=== PATIENT | female | born 1945 | race Caucasian/White ===

== ENCOUNTER 2017-07-02 17:02 | Inpatient (IN) | payer MEDICARE ==
[2017-07-02] MEDS ORDERED: Sodium Chloride 0.9% 10 ML Syringe FLUSH PRN (17:44)
[2017-07-02] MEDS ORDERED: Insulin Aspart 100 Units/ML 3 ML Pen SUBCUT ONE (18:38)
--- NOTE | 2017-07-02 18:38 | EDM.PDOC ---
ED HPI GENERAL MEDICAL PROBLEM - General Chief Complaint: Diabetic Complaint Stated Complaint: high blood sugar Time Seen by Provider: 07/02/17 17:12 Source of Information: Reports: Patient, Family - History of Present Illness INITIAL COMMENTS - FREE TEXT/NARRATIVE: patient comes into the emergency department with her family tonight stating she feels shaky, weak, and has blood sugars in the 300-400s. Pt just recently had her lantus switched to Basaglar. But also stopped her victoza. She has not been eating the greatest according to family. She was eating dairy barbosa yesterday and had a large mocca today. She started feeling tired and shaky approx 2 days now. Family noticed her blood sugars have been reading high and the patient has been drinking alot of water. She denies any fever, n/v, headache, weakness, chest pain. She has also noticed even drinking all the water the past few days she has begun to retain fluid and not use the bathroom as frequently. Onset: Gradual Associated Symptoms: Reports: Malaise, Weakness Right Shoulder Pain Score (Numeric/FACES): 3 - Related Data Allergies Allergy/AdvReac Type Severity Reaction Status Date / Time Sulfa (Sulfonamide Allergy Unknown Anaphylactic Verified 07/02/17 18:23 Antibiotics) Shock metformin AdvReac Intermediate Vomiting Verified 07/04/17 11:15 Home Meds: Home Meds Albuterol [Proair HFA] 2 puff INH Q4HR PRN 11/06/14 [History] Aspirin 325 mg PO DAILY@119911/06/14 [History] Escitalopram Oxalate [Lexapro] 30 mg PO DAILY@89911/06/14 [History] Fexofenadine [Alem] 180 mg PO DAILY@89911/06/14 [History] Fluticasone Propionate [Flonase] 50 mcg JOSÉ MIGUEL DAILY@89911/06/14 [History] Lutein/Minerals/Vit A,C & E [I-Twyla] 1 tab PO DAILY@119911/06/14 [History] Multivitamins w-Iron/Ca/FA/Min [Thera M Plus] 1 tab PO DAILY@119911/06/14 [ History] [place]-3 Fatty Acids [[place]-3] 1,000 mg PO BEDTIME 11/06/14 [History] Oxybutynin Chloride [Ditropan Xl] 10 mg PO DAILY@1200 11/06/14 [History] Simvastatin 20 mg PO DAILY@191411/06/14 [History] Acetaminophen [Tylenol Extra Strength] 500 - 1,000 mg PO Q8HR PRN MDD 4000 MG [History] Calcium Carbonate/Vitamin D3 [Liquid Calcium 600-Vit D3 Sfgl] 1 tab PO BID@1200, 191407/02/17 [History] Capsaicin [Zostrix 0.025% Crm] 1 applic TOP Q6HR PRN 07/02/17 [History] Carboxymethylcellulose Sodium [Refresh Liquigel 1%] 1 drop EYEBOTH DAILY@1914 [History] Clotrimazole/Betamethasone Dip [Lotrisone Cream] 1 applic TP BID PRN 07/02/17 [ History] Levothyroxine 25 mcg PO ACBREAKFAST 07/02/17 [History] Methylphenidate HCl [Ritalin] 20 mg PO BID@0900,1500 07/02/17 [History] Pantoprazole [ProTONIX] 40 mg PO DAILY@0830 07/02/17 [History] Propylene Glycol/Peg 400 [Systane Liquid Gel Eye Drops] 1 drop EYEBOTH QID 07/02 [History] Telmisartan [Micardis] 80 mg PO DAILY@89907/02/17 [History] guaiFENesin [Robitussin] 20 ml PO Q4HR PRN 07/02/17 [History] buPROPion [buPROPion XL] 150 mg PO DAILY@89907/03/17 [History] Insulin Glargine,Hum.Rec.Anlog [Basaglar Kwikpen U-100] 50 unit SQ DAILY@1914 [History] Budesonide [Pulmicort Flexhaler] 2 puff IH BID #1 inhaler 07/05/17 [Rx] Gabapentin [Neurontin] 1 cap PO BID 30 Days #60 capsule 07/05/17 [Rx] Insulin Aspart [Novolog] See Protocol SQ TIDMEALS #1 pen 07/05/17 [Rx] Past Medical History Cardiovascular History: Reports: Hypertension Gastrointestinal History: Reports: GERD Other Genitourinary History: Diabetic nephropathy. Overactive bladder Other Musculoskeletal History: Psoriatic arthritis. Clavicle FX Psychiatric History: Reports: Depression Endocrine/Metabolic History: Reports: Diabetes, Type II Other Hematologic History: Thrombocytopenia - Past Surgical History Other Female Surgeries/Procedures: Cystocele. prolapsed uterus Other Musculoskeletal Surgeries/Procedures:: Diabetic neuropathy. Toe ORIF Social & Family History - Tobacco Use Smoking Status *Q: Never Smoker - Recreational Drug Use Recreational Drug Use: No ED ROS GENERAL - Review of Systems Review Of Systems: See Below Constitutional: Reports: Weakness, Fatigue, Weight Gain Respiratory: Reports: No Symptoms Cardiovascular: Reports: Dyspnea on Exertion Endocrine: Reports: No Symptoms GI/Abdominal: Reports: No Symptoms : Reports: No Symptoms Musculoskeletal: Reports: No Symptoms Skin: Reports: No Symptoms Neurological: Reports: No Symptoms Psychiatric: Reports: No Symptoms Hematologic/Lymphatic: Reports: No Symptoms Immunologic: Reports: No Symptoms ED EXAM, GENERAL - Physical Exam Exam: See Below Exam Limited By: No Limitations General Appearance: Alert, WD/WN, No Apparent Distress Eye Exam: Bilateral Eye: PERRL Respiratory/Chest: No Respiratory Distress, Lungs Clear, Normal Breath Sounds, No Accessory Muscle Use, Respiratory Distress, Crackles Cardiovascular: Normal Peripheral Pulses, Regular Rate, Rhythm, No Edema, No Gallop, No JVD, No Murmur, No Rub Extremities: Normal Inspection, Normal Range of Motion, Non-Tender, No Pedal Edema, Normal Capillary Refill Neurological: Alert, Oriented, CN II-XII Intact, Normal Cognition, Normal Gait, Normal Reflexes, No Motor/Sensory Deficits Psychiatric: Normal Affect, Normal Mood Skin Exam: Warm, Dry, Intact, Normal Color, No Rash Lymphatic: No Adenopathy EKG INTERPRETATION Rhythm: NSR Course - Vital Signs Last Recorded V/S: Last Vital Signs Temp 36.0 C 07/05/17 10:00 Pulse 69 07/05/17 10:00 Resp 20 07/05/17 10:00 BP 93/76 07/05/17 10:00 Pulse Ox 94 L 07/05/17 10:00 - Orders/Labs/Meds Labs: Laboratory Tests 07/02/17 07/02/17 07/02/17 Range/Units 17:16 17:59 17:59 WBC 3.9 L (4.0-10.0) x10^3/uL RBC 4.53 (4.00-5.50) x10^6/uL Hgb 13.4 (12.0-16.0) g/dL Hct 40.5 (33.0-47.0) % MCV 89.4 (78.0-93.0) fL MCH 29.6 (26.0-32.0) pg MCHC 33.1 (32.0-36.0) g/dL RDW Coeff of Ananda 14.3 (10.0-15.0) % Plt Count 64 L (130-400) x10^3/uL Neut % (Auto) 66.6 (50.0-80.0) % Lymph % (Auto) 17.8 L (25.0-50.0) % Kimball % (Auto) 15.0 H (2.0-11.0) % Eos % (Auto) 0.3 (0.0-4.0) % Baso % (Auto) 0.3 (0.2-1.2) % POC ABG pH (7.35-7.45) POC ABG pCO2 (35-45) mmHG POC ABG pO2 (80-105) mmHG POC ABG HCO3 (22-26) mmol/L POC ABG Total CO2 (23-27) mmol/L POC ABG O2 Sat (95-98) % POC ABG Base Excess (-2-3) mmol/L POC FiO2 Sodium 138 (136-145) mmol/L Potassium 3.7 (3.5-5.1) mmol/L Chloride 100 (98-107) mmol/L Carbon Dioxide 28 (21-32) mmol/L BUN 11 (7-18) mg/dL Creatinine 1.2 H (0.55-1.02) mg/dL Est Cr Clr Drug Dosing TNP Estimated GFR (MDRD) 44 Glucose 394 H (74-106) mg/dL POC Glucose 366 H (74-106) mg/dL Lactic Acid (0.4-2.0) mmol/L Calcium 9.1 (8.5-10.1) mg/dL Corrected Calcium 9.74 (8.5-10.1) mg/dL Total Bilirubin 0.5 (0.2-1.0) mg/dL AST 18 (15-37) U/L ALT 20 (14-59) U/L Alkaline Phosphatase 71 (46-116) U/L NT-Pro-B Natriuret Pep 523 H (<=125) pg/mL Total Protein 6.7 (6.4-8.2) g/dL Albumin 3.2 L (3.4-5.0) g/dL Globulin 3.5 Albumin/Globulin Ratio 0.91 07/02/17 07/02/17 Range/Units 17:59 18:15 WBC (4.0-10.0) x10^3/uL RBC (4.00-5.50) x10^6/uL Hgb (12.0-16.0) g/dL Hct (33.0-47.0) % MCV (78.0-93.0) fL MCH (26.0-32.0) pg MCHC (32.0-36.0) g/dL RDW Coeff of Ananda (10.0-15.0) % Plt Count (130-400) x10^3/uL Neut % (Auto) (50.0-80.0) % Lymph % (Auto) (25.0-50.0) % Kimball % (Auto) (2.0-11.0) % Eos % (Auto) (0.0-4.0) % Baso % (Auto) (0.2-1.2) % POC ABG pH 7.438 (7.35-7.45) POC ABG pCO2 33 L (35-45) mmHG POC ABG pO2 62 L (80-105) mmHG POC ABG HCO3 22 (22-26) mmol/L POC ABG Total CO2 23 (23-27) mmol/L POC ABG O2 Sat 92 L (95-98) % POC ABG Base Excess -2 (-2-3) mmol/L POC FiO2 0.21 Sodium (136-145) mmol/L Potassium (3.5-5.1) mmol/L Chloride (98-107) mmol/L Carbon Dioxide (21-32) mmol/L BUN (7-18) mg/dL Creatinine (0.55-1.02) mg/dL Est Cr Clr Drug Dosing Estimated GFR (MDRD) Glucose (74-106) mg/dL POC Glucose (74-106) mg/dL Lactic Acid 1.2 (0.4-2.0) mmol/L Calcium (8.5-10.1) mg/dL Corrected Calcium (8.5-10.1) mg/dL Total Bilirubin (0.2-1.0) mg/dL AST (15-37) U/L ALT (14-59) U/L Alkaline Phosphatase (46-116) U/L NT-Pro-B Natriuret Pep (<=125) pg/mL Total Protein (6.4-8.2) g/dL Albumin (3.4-5.0) g/dL Globulin Albumin/Globulin Ratio Meds: Medications Discontinued Medications Generic Name Dose Route Start Last Admin Trade Name Freq PRN Reason Stop Dose Admin Acetaminophen 500 mg 07/02/17 23:57 Tylenol Extra Strength PO Q8HR PRN Pain Albuterol 2.5 mg 07/04/17 10:49 07/05/17 07:07 Proventil Neb Soln NEB 2.5 mg Q4HRRT PRN Administration sob Artificial Tears 0 each 07/03/17 20:00 07/04/17 19:53 Tears Naturale Free EYEBOTH 1 each BEDTIME SUNNY Administration Aspirin 325 mg 07/03/17 08:00 07/03/17 07:45 Ecotrin PO 325 mg DAILY SUNNY Administration Aspirin 325 mg 07/04/17 12:00 07/05/17 12:16 Ecotrin PO 325 mg DAILY@12 SUNNY Administration Benzocaine/Menthol 1 lozenge 07/02/17 23:20 07/05/17 12:16 Cepacol Sore Throat MUCMEM 1 lozenge TID PRN Administration Cough Budesonide 0.5 mg 07/04/17 12:15 07/05/17 07:07 Pulmicort NEB 0.5 mg BIDRT SUNNY Administration Bupropion HCl 150 mg 07/03/17 08:00 07/03/17 07:45 Wellbutrin PO 150 mg DAILY SUN[facility] Administration Bupropion HCl 150 mg 07/04/17 08:00 07/05/17 07:34 Wellbutrin Xl PO 150 mg DAILY SUNNY Administration Capsaicin 0 gm 07/02/17 23:57 Zostrix 0.025% Crm TOP Q6HR PRN Pain Citalopram Hydrobromide 40 mg 07/03/17 08:00 07/05/17 07:34 Celexa PO 40 mg DAILY SUNNY Administration Diphenhydramine HCl 50 mg 07/03/17 20:15 07/03/17 20:48 Benadryl IVPUSH 07/03/17 20:16 50 mg ONETIME ONE Administration Fluticasone Propionate 0.0001 gm 07/03/17 08:00 07/04/17 08:04 Flonase NASBOTH 1 spray DAILY SUNNY Administration Fluticasone Propionate 0 gm 07/05/17 08:00 07/05/17 07:36 Flonase NASBOTH 1 spray DAILY USNNY Administration Gabapentin 100 mg 07/04/17 12:30 07/05/17 07:34 Neurontin PO 100 mg BID SUNNY Administration Guaifenesin 400 mg 07/02/17 23:57 07/03/17 20:48 Robitussin PO 400 mg Q4HR PRN Administration Other Sodium Chloride 1,000 mls @ 50 mls/hr 07/02/17 21:30 07/02/17 22:08 Normal Saline IV 50 mls/hr ASDIRECTED SUNNY Administration Insulin Aspart 5 unit 07/03/17 08:00 Novolog SUBCUT TIDMEALS [facility] Insulin Aspart 5 unit 07/02/17 18:38 07/02/17 19:06 Novolog SUBCUT 07/02/17 18:39 5 units ONETIME ONE Administration Insulin Aspart 0 unit 07/04/17 11:10 07/04/17 11:22 Novolog SUBCUT 2 units TIDAC [facility] Administration Protocol Insulin Aspart 0 unit 07/04/17 18:00 07/05/17 12:16 Novolog SUBCUT 3 units TIDMEALS [facility] Administration Protocol Insulin Detemir 0 unit 07/03/17 20:00 07/04/17 19:52 Levemir SUBCUT 50 units BEDTIME [facility] Administration Insulin Human Regular 0 unit 07/03/17 07:00 07/03/17 11:12 Humulin R SUBCUT Not Given [facility] Protocol Insulin Human Regular 0 unit 07/03/17 17:00 07/04/17 12:31 Humulin R SUBCUT Not Given [facility] Protocol Levothyroxine Sodium 25 mcg 07/03/17 07:00 07/05/17 06:17 Levothyroxine PO 25 mcg ACBREAKFAST [facility] Administration Loratadine 10 mg 07/03/17 08:00 07/05/17 07:34 Claritin PO 10 mg DAILY [facility] Administration Losartan Potassium 100 mg 07/03/17 08:00 07/05/17 07:34 Cozaar PO 100 mg DAILY [facility] Administration Non-Formulary Medication 20 mg 07/03/17 08:00 07/03/17 10:35 Methylphenidate Hcl [Ritalin] PO Not Given BID [facility] Non-Formulary Medication 1 drop 07/03/17 08:00 07/03/17 08:16 Propylene Glycol/Peg 400 [Systane Liquid Gel Eye Drops] EYEBOTH Not Given QID [facility] Refresh Liquigel 0 drop 07/03/17 10:15 07/05/17 12:16 Own Med EYEBOTH 1 drop QID [facility] Administration Methylphenidate 20 0 mg 07/03/17 15:00 07/05/17 07:35 Mg Own Med PO 07/12/17 15:01 20 mg BID@0800,1500 [facility] Administration Ondansetron HCl 4 mg 07/02/17 21:17 Zofran Odt PO Q6H PRN nausea, able to take PO Oxybutynin Chloride 10 mg 07/03/17 08:00 07/03/17 07:44 Oxybutynin Er PO 10 mg DAILY [facility] Administration Oxybutynin Chloride 10 mg 07/04/17 12:00 07/05/17 12:16 Oxybutynin Er PO 10 mg DAILY@12 [facility] Administration Oxycodone/Acetaminophen 2 tab 07/02/17 23:57 07/05/17 07:34 Percocet 325-5 Mg PO 2 tab Q4H PRN Administration Pain Pantoprazole Sodium 40 mg 07/03/17 08:00 07/05/17 07:34 Protonix PO 40 mg DAILY [facility] Administration Potassium Chloride 40 meq 07/04/17 10:24 07/04/17 11:18 Klor-Con M20 PO 07/04/17 10:25 40 meq ONETIME ONE Administration Simvastatin 20 mg 07/03/17 20:00 07/04/17 19:53 Zocor PO 20 mg BEDTIME [facility] Administration Sitagliptin Phosphate 100 mg 07/03/17 08:00 07/03/17 07:45 Januvia PO 100 mg DAILY [facility] Administration Sitagliptin Phosphate 100 mg 07/04/17 12:00 07/04/17 12:32 Januvia PO Not Given DAILY@12 [facility] Sodium Chloride 10 ml 07/02/17 17:44 Saline Flush FLUSH ASDIRECTED PRN Keep Vein Open Departure - Departure Time of Disposition: 12:30 Disposition: Admitted As Inpatient 64 Clinical Impression: Hyperglycemia - Discharge Information
[2017-07-02 18:43] LABS: CHLORIDE,CL 100 mmol/L (98-107); SODIUM,NA 138 mmol/L (136-145)
[2017-07-02] MEDS ORDERED: Ondansetron 4 MG Tab.DIS PO PRN (21:17)
[2017-07-02] MEDS ORDERED: Sodium Chloride 0.9% 1,000 ML IV SCH (21:30)
--- NOTE | 2017-07-02 23:05 | PCM.HP ---
H&P History of Present Illness - General Date of Service: 07/02/17 Admit Problem/Dx: Admission Diagnosis/Problem Admission Diagnosis/Problem Hyperglycemia Uncontrolled Diabetes Type II Weakness Fatigue Source of Information: Patient, Family, Old Records, RN, RN Notes Reviewed History Limitations: Reports: No Limitations - History of Present Illness Initial Comments - Free Text/Narative: 71 yo female patient was brought to the Emergency Room at [facility] earlier this evening for elevated blood sugar, weakness, and fatigue. The patient states her symptoms started a couple of days ago. Patient did fall at home last evening. She states she landed on her right shoulder which seem to bother her somewhat today. She has full ROM and does not seem to have any deficits. She recently underwent left rotator cuff repair 04/07/2017. She has not complaints with the left shoulder. The patient admits she has not been taking her diabetic medications as prescribed. She states she has been urinating "a lot more than usual." She states she feels very fatigue and weak. She denies any nausea, vomiting or diarrhea. No headaches. She did have shaking spells at home over the past day or so. She states it has been more difficult to walk with her cane. She admits she does not follow an ADA diet. She states she ate [employer] [place] yesterday and had a regular Mocca today. Patient denies any new visual problems. She feels thirsty most of the say. She has a history of diabetic neuropathy and nephropathy. Patient denies any chest pain or SOB. No abdominal pain. No UTI symptoms. Patient is IGIUGIG. Patient states she is not sure why she does not follow her PCP's direction with diabetes control. She has kept her blood pressure and cholesterol levels under control with medications. It is felt the patient has some mild CHF on admission. Patient's BNP is 523; todays CXR did not show any cardiomegaly; some crackles in the right base without any peripheral edema. The patient's last Echo was 04/2016 with an EF at that time was 60-65%. The Echo did show some mild AI, otherwise ventricles were normal. Patient has a history of JANET in the past. Her Creat has progressively been elevated over the past year. A year ago her Creat was 1.00, at 6 months slightly elevated at 1.01, and 3 months ago 1.17. Today her Creat is up to 1.2. Patient's last HgbA1C March 2017 was 8.4, up from 6.10 Sep 2016. Onset of Symptoms: Reports: Gradual Symptom Onset Date: 06/29/17 Duration of Symptoms: Reports: Waxing/Waning Right Shoulder Pain Score (Numeric/FACES): 2 - Related Data Allergies/Adverse Reactions: Allergies Allergy/AdvReac Type Severity Reaction Status Date / Time Sulfa (Sulfonamide Allergy Unknown Anaphylactic Verified 07/02/17 18:23 Antibiotics) Shock Home Medications: Home Meds Albuterol [Proair HFA] 2 puff INH Q4HR PRN 11/06/14 [History] Aspirin 325 mg PO DAILY 11/06/14 [History] Budesonide [Pulmicort Flexhaler] 2 puff INH BID PRN 11/06/14 [History] Escitalopram Oxalate [Lexapro] 1.5 tab PO DAILY 11/06/14 [History] Fexofenadine [Alem] 180 mg PO DAILY 11/06/14 [History] Fluticasone Propionate [Flonase] 50 mcg INH DAILY 11/06/14 [History] Insulin Glarg,Human.Rec.Analog [LantUS Solostar] 50 units SQ BEDTIME 11/06/14 [ History] Lutein/Minerals/Vit A,C & E [I-Twyla] 1 each PO DAILY 11/06/14 [History] Multivitamins w-Iron/Ca/FA/Min [Thera M Plus] 1 tab PO DAILY 11/06/14 [History] [place]-3 Fatty Acids [[place]-3] 1,000 mg PO DAILY 11/06/14 [History] Oxybutynin Chloride [Ditropan Xl] 10 mg PO DAILY 11/06/14 [History] Simvastatin [Simvastatin] 1 tab PO BEDTIME 11/06/14 [History] SitaGLIPtin [Januvia] 1 tab PO DAILY 11/06/14 [History] Acetaminophen [Tylenol Extra Strength] 1 tab PO Q8HR PRN 07/02/17 [History] Calcium Carbonate/Vitamin D3 [Liquid Calcium 600-Vit D3 Sfgl] 1 tab PO BID 07/02 [History] Capsaicin [Zostrix 0.025% Crm] 1 applic TOP Q6HR PRN 07/02/17 [History] Carboxymethylcellulose Sodium [Refresh Liquigel 1% Ophth Soln] 1 drop EYEBOTH DAILY 07/02/17 [History] Clotrimazole/Betamethasone Dip [Lotrisone Cream] 1 applic TP BID PRN 07/02/17 [ History] Ibuprofen [Ibuprofen Ib] 4 tab PO Q12HR PRN 07/02/17 [History] Levothyroxine 25 mcg PO ACBREAKFAST 07/02/17 [History] Methylphenidate HCl [Ritalin] 20 mg PO BID 07/02/17 [History] Pantoprazole [ProTONIX] 40 mg PO DAILY 07/02/17 [History] Propylene Glycol/Peg 400 [Systane Liquid Gel Eye Drops] 1 drop EYEBOTH ASDIRECTED 07/02/17 [History] Telmisartan [Micardis] 80 mg PO DAILY 07/02/17 [History] buPROPion [Wellbutrin] 150 mg PO DAILY 07/02/17 [History] guaiFENesin [Robitussin] 20 ml PO Q4HR PRN 07/02/17 [History] oxyCODONE HCl/Acetaminophen [oxyCODONE-Acetaminophen 5-325] 2 tab PO Q4H PRN [History] Past Medical History HEENT History: Reports: Hard of Hearing Cardiovascular History: Reports: Hypertension Respiratory History: Reports: Asthma, Sleep Apnea Gastrointestinal History: Reports: GERD Other Genitourinary History: Diabetic nephropathy. Overactive bladder Other Musculoskeletal History: Psoriatic arthritis. Clavicle FX Psychiatric History: Reports: Depression Endocrine/Metabolic History: Reports: Diabetes, Type II Other Hematologic History: Thrombocytopenia - Past Surgical History Other Female Surgeries/Procedures: Cystocele. prolapsed uterus Other Musculoskeletal Surgeries/Procedures:: Diabetic neuropathy. Toe ORIF Social & Family History - Family History Family Medical History: Noncontributory - Tobacco Use Smoking Status *Q: Never Smoker Second Hand Smoke Exposure: No - Caffeine Use Caffeine Use: Reports: Coffee, Soda - Recreational Drug Use Recreational Drug Use: No - Living Situation & Occupation Living situation: Reports: , with Spouse, Assisted Living Occupation: Retired H&P Review of Systems - Review of Systems: Review Of Systems: See Below General: Reports: Weakness, Fatigue, Diaphoresis. Denies: Fever, Chills, Decreased Appetite Pulmonary: Denies: Shortness of Breath, Cough Cardiovascular: Reports: Lightheadedness. Denies: Chest Pain, Palpitations, Edema Gastrointestinal: Denies: Abdominal Pain, Nausea, Vomiting Genitourinary: Reports: Frequency Musculoskeletal: Reports: Shoulder Pain (Right) Skin: Reports: Diaphoresis Neurological: Denies: No Symptoms, Dizziness, Headache, Numbness, Paresthesia, Tingling Exam - Exam Exam: See Below - Vital Signs Vital Signs: Last Vital Signs Temp 37.1 C 07/02/17 22:00 Pulse 70 07/02/17 22:00 Resp 16 07/02/17 22:00 BP 121/73 07/02/17 22:00 Pulse Ox 95 07/02/17 22:00 Weight: 88.224 kg - Exam General: Alert, Oriented, Cooperative Lungs: Normal Respiratory Effort, Crackles (scant right lung base; otherwise lungs are clear) Cardiovascular: Regular Rate, Regular Rhythm, Normal S1, Normal S2 GI/Abdominal Exam: Normal Bowel Sounds, Soft, Non-Tender Extremities: No Pedal Edema, Normal Capillary Refill, Other (slight pain with right shoulder ROM; no joint laxity, no obvious bone deformity; able to use normal with minimal pain) Peripheral Pulses: 2+: Radial (L), Radial (R) Skin: Warm, Dry, Intact Neuro Extensive - Mental Status: Alert, Oriented x3 - Patient Data Lab Results Last 24 hrs: Laboratory Results - last 24 hr 07/02/17 Range/Units 19:39 POC Glucose 281 H (74-106) mg/dL Result Diagrams: 07/02/17 17:59 07/02/17 17:59 *Q Meaningful Use (ADM) - VTE *Q VTE Criteria *Q: VTE Mechanical Contraindications *Q: At Risk for Falls - Stroke *Q Stroke Criteria *Q: - AMI *Q AMI Criteria *Q: - Problem List (1) Hyperglycemia due to type 2 diabetes mellitus SNOMED Code(s): 906480287434286 ICD Code: E11.65 - TYPE 2 DIABETES MELLITUS WITH HYPERGLYCEMIA Status: Acute Priority: Medium Current Visit: Yes Qualifiers: 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: with custodial use Qualified Code( s): E11.65 - Type 2 diabetes mellitus with hyperglycemia; Z79.4 - terminal operator ( current) use of insulin; Z79.4 - terminal operator (current) use of insulin; Z79.4 - terminal operator (current) use of insulin; Z79.4 - FDC (current) use of insulin (2) Fatigue SNOMED Code(s): 09973515 ICD Code: R53.83 - OTHER FATIGUE Status: Acute Priority: Medium Current Visit: Yes Qualifiers: Fatigue type: unspecified Qualified Code(s): R53.83 - Other fatigue (3) Weakness SNOMED Code(s): 98971698 ICD Code: R53.1 - WEAKNESS Status: Acute Current Visit: Yes (4) Vascular dementia SNOMED Code(s): 966018798 ICD Code: F01.50 - VASCULAR DEMENTIA WITHOUT BEHAVIORAL DISTURBANCE Status : Chronic Current Visit: No Qualifiers: Dementia behavioral disturbance: without behavioral disturbance Qualified Code(s): F01.50 - Vascular dementia without behavioral disturbance (5) Essential hypertension SNOMED Code(s): 00812598 ICD Code: I10 - ESSENTIAL (PRIMARY) HYPERTENSION Status: Chronic Current Visit: No (6) Hyperlipidemia associated with type 2 diabetes mellitus SNOMED Code(s): 044321442128 ICD Code: E11.69 - TYPE 2 DIABETES MELLITUS WITH OTHER SPECIFIED COMPLICATION ; E78.5 - HYPERLIPIDEMIA, UNSPECIFIED Status: Chronic Current Visit: No (7) Hypothyroidism (acquired) SNOMED Code(s): 541126480 ICD Code: E03.9 - HYPOTHYROIDISM, UNSPECIFIED Status: Chronic Current Visit: No (8) GERD (gastroesophageal reflux disease) SNOMED Code(s): 486406574 ICD Code: K21.9 - GASTRO-ESOPHAGEAL REFLUX DISEASE WITHOUT ESOPHAGITIS Status: Chronic Current Visit: No Qualifiers: Esophagitis presence: without esophagitis Qualified Code(s): K21.9 - Gastro -esophageal reflux disease without esophagitis (9) Depression SNOMED Code(s): 66436892 ICD Code: F32.9 - MAJOR DEPRESSIVE DISORDER, SINGLE EPISODE, UNSPECIFIED Status: Acute Current Visit: Yes Qualifiers: Depression Type: major depressive disorder Major depression recurrence: recurrent Active/Remission status: currently active Major depression episode severity: moderate Qualified Code(s): F33.1 - Major depressive disorder, recurrent, moderate Problem List Initiated/Reviewed/Updated: Yes Orders Last 24hrs: Active Orders 24 hr Category Date Time Status Patient Status [ADT] Routine ADT 07/02/17 21:10 Active Accu Check [Blood Glucose Check, Bedside] [RC] Care 07/02/17 21:26 Active QIDACANDBED EKG 12 Lead [EKG Documentation Completion] [RC] ROUTINE Care 07/02/17 19:34 Active Height and Weight [RC] UPON Care 07/02/17 21:17 Active Intake and Output [RC] QSHIFT Care 07/02/17 21:21 Active May Shower [RC] ASDIRECTED Care 07/02/17 21:17 Active Oxygen Therapy [RC] PRN Care 07/02/17 21:10 Active Up ad Rosmery [RC] ASDIRECTED Care 07/02/17 21:17 Active VTE/DVT Education [RC] PER UNIT ROUTINE Care 07/02/17 21:10 Active Vital Signs [RC] Q4H Care 07/02/17 21:10 Active Consult to Case Management [CONS] Routine Cons 07/02/17 21:17 Active OT Evaluation and Treatment [CONS] Routine Cons 07/02/17 21:17 Active PT Evaluation and Treatment [CONS] Routine Cons 07/02/17 21:17 Active [employer] Diet [DIET] Diet 07/02/17 Breakfast Active Chest 1V Frontal [CR] Stat Exams 07/02/17 19:35 Taken BASIC METABOLIC PANEL,BMP [CHEM] Routine Lab 07/03/17 05:11 Ordered CBC WITH AUTO DIFF [HEME] Routine Lab 07/03/17 05:11 Ordered GLYCOSYLATED HEMOGLOBIN,HGBA1C [CHEM] Routine Lab 07/03/17 05:11 Ordered MAGNESIUM [CHEM] Routine Lab 07/03/17 05:11 Ordered MICROALBUMIN, URINE RANDOM Routine Lab 07/03/17 05:11 Ordered PRO B-TYPE NATRIUR PEPT,BNPPRO [CHEM] Routine Lab 07/03/17 05:11 Ordered TSH ULTRASENSITIVE [CHEM] Routine Lab 07/03/17 05:11 Ordered UA W/MICROSCOPIC [URIN] Routine Lab 07/03/17 05:11 Ordered Insulin Regular, Human [HumuLIN R] Med 07/03/17 07:00 Active See Protocol SUBCUT TIDAC Ondansetron [Zofran ODT] Med 07/02/17 21:17 Active 4 mg PO Q6H PRN Sodium Chloride 0.9% [Normal Saline] 1,000 ml Med 07/02/17 21:30 Active IV ASDIRECTED Resuscitation Status Routine Resus Stat 07/02/17 21:10 Ordered Medication Orders Sodium Chloride (Normal Saline) 1,000 mls @ 50 mls/hr IV ASDIRECTED [facility] Last Admin: 07/02/17 22:08 Dose: 50 mls/hr Insulin Human Regular (Humulin R) 0 unit SUBCUT TIDAC SUNNY PRN Reason: Protocol Ondansetron HCl (Zofran Odt) 4 mg PO Q6H PRN PRN Reason: nausea, able to take PO Sodium Chloride (Saline Flush) 10 ml FLUSH ASDIRECTED PRN PRN Reason: Keep Vein Open Assessment/Plan Comment:: 71 yo female patient with a past medical history of Diabetes Type II, vascular dementia, hypertension, hyperlipidemia, GERD, and depression, is admitted to the acute care floor at [facility] for hyperglycemia in the setting of diabetes type II, weakness, and fatigue 1. Uncontrolled DM with hyperglycemia - start SSI; continue home DM meds; needs DM education referral; recheck A1C, ADA diet; gentle IVF hydration; no ketoacidosis as this time; will monitor for this 2. Weakness - secondary to hyperglycemia and poor diet control; does use a cane at home; with consult PT/OT; could also be from her depression and social isolation 3. Fatigue - recently dx with hypothyroidism; recheck TSH; control blood sugars ; ADA diet I do not feel the patient has any overt issues with CHF at this time. BNP is slightly elevated but CXR and EF are normal without any peripheral edema. Will recheck BNP in am, if elevated may give a one time dose of Lasix, however the patient is urinating fine. I believe this will correct once blood sugars are under better control and patient cuts back on fluid intake. Patient needs to adhere to a ADA diet faithfully if at all possible; needs DM education. Will await PT/OT evals. Once blood sugars are under better control, will change to a low-dose SSI. The patients wishes to be a full code at this time. Patient does wish to be transferred to a higher level of care should the need arise. I do anticipate the patient will be admitted for >48 hours due to symptomatic hyperglycemia. Recommend continuing with psychotherapy as outpatient. May consider stopping Wellbutrin and trying Zoloft if the patient has not done this in the past. Continue all other home medications the same.
[2017-07-02] MEDS: Benzocaine/Cetylpyridinium/Menthol Lozenge MUCMEM PRN (23:55)
[2017-07-02] MEDS ORDERED: Capsaicin 0.025% Crm 60 GM Tube TOP PRN (23:57)
[2017-07-02] MEDS ORDERED: Acetaminophen/oxyCODONE 325-5 MG Tab PO PRN (23:57)
[2017-07-02] MEDS ORDERED: guaiFENesin 100 MG/5 ML Soln 10 ML UD Cup PO PRN (23:57)
[2017-07-02] MEDS ORDERED: Albuterol 8 GM Inhaler INH PRN (23:57)
[2017-07-02] MEDS ORDERED: Acetaminophen 500 MG Tab PO PRN (23:57)
[2017-07-03] MEDS ORDERED: Mometasone Furoate Powder 220 MCG/Puff 14 Dose Inhaler INH PRN (00:30)
[2017-07-03] MEDS: Levothyroxine 25 MCG Tab PO SCH (06:40)
[2017-07-03] MEDS: Insulin Regular, Human 100 Units/ML 3 ML Vial SUBCUT SCH ×3 (06:50→17:29)
[2017-07-03] MEDS: Fluticasone Propionate Nasal Spray 16 GM Bottle NASBOTH SCH (07:44)
[2017-07-03] MEDS: Pantoprazole 40 MG Tab.CR PO SCH (07:45)
[2017-07-03] MEDS: Loratadine 10 MG Tab PO SCH (07:45)
[2017-07-03] MEDS: Losartan 50 MG Tab PO SCH (07:45)
[2017-07-03] MEDS: Citalopram 20 MG Tab PO SCH (07:45)
[2017-07-03] MEDS ORDERED: Aspirin 325 MG Tab.EC PO SCH (08:00)
[2017-07-03] MEDS ORDERED: Insulin Aspart 100 Units/ML 3 ML Pen SUBCUT SCH (08:00)
[2017-07-03] MEDS ORDERED: METHYLPHENIDATE HCL 20 MG PO SCH (08:00)
[2017-07-03] MEDS ORDERED: Oxybutynin 5 MG Tab.ER PO SCH (08:00)
[2017-07-03] MEDS ORDERED: Non-Formulary Medication 1 Each (Propylene Glycol/Peg 400 [Systane Liquid Gel Eye Drops] 1 EYEBOTH SCH (08:00)
[2017-07-03] MEDS: METHYLPHENIDATE 20 MG PO SCH ×2 (10:31→16:28)
[2017-07-03] MEDS: REFRESH LIQUIGEL EYEBOTH SCH ×3 (11:43→20:10)
[2017-07-03] MEDS ORDERED: Sodium Chloride 0.9% 10 ML Syringe FLUSH PRN (12:42)
--- NOTE | 2017-07-03 12:49 | PCM.PN ---
- General Info Date of Service: 07/03/17 Admission Dx/Problem (Free Text): Admission Diagnosis/Problem Admission Diagnosis/Problem Hyperglycemia Uncontrolled Diabetes Type II Weakness Fatigue Subjective Update: Patient complains of a burning sensation of her lower lip. She states this has been presents for the past couple of months. She is doing warm salt water gargles which see to help. Otherwise, no other specific complaints. She states she is urinating ok and no issues with BM's. Tolerating diet ok. Patient did have one episode of dizziness upon standing. Orthostatic pressures were good. Her blood sugar was 56. No chest pain or SOB. No abdominal pain. Functional Status: Reports: Pain Controlled, Tolerating Diet, Ambulating, Urinating Pain Score: 0 - Review of Systems General: Reports: Weakness, Fatigue. Denies: Fever, Chills HEENT: Reports: Other (See HPI) Pulmonary: Denies: Shortness of Breath, Cough Cardiovascular: Reports: Lightheadedness. Denies: Chest Pain, Palpitations Gastrointestinal: Denies: Abdominal Pain, Nausea, Vomiting Skin: Reports: No Symptoms Neurological: Reports: Dizziness. Denies: Headache, Numbness, Paresthesia, Tingling - Patient Data Vitals - Most Recent: Last Vital Signs Temp 37.2 C 07/03/17 10:00 Pulse 69 07/03/17 06:00 Resp 18 07/03/17 06:00 BP 105/77 07/03/17 06:00 Pulse Ox 96 07/03/17 06:00 Orthostatic Blood Pressure [ 125/81 Standing] Orthostatic Blood Pressure [ 117/73 Sitting] Orthostatic Blood Pressure [ 135/76 Supine] Weight - Most Recent: 88.677 kg I&O - Last 24 Hours: Intake & Output 07/02/17 07/03/17 07/03/17 22:59 06:59 14:59 Intake Total 598 Output Total 450 Balance 148 Lab Results Last 24 Hours: Laboratory Results - last 24 hr 07/02/17 07/03/17 07/03/17 Range/Units 19:39 01:55 06:24 WBC (4.0-10.0) x10^3/uL RBC (4.00-5.50) x10^6/uL Hgb (12.0-16.0) g/dL Hct (33.0-47.0) % MCV (78.0-93.0) fL MCH (26.0-32.0) pg MCHC (32.0-36.0) g/dL RDW Coeff of Ananda (10.0-15.0) % Plt Count (130-400) x10^3/uL Neut % (Auto) (50.0-80.0) % Lymph % (Auto) (25.0-50.0) % Eddy % (Auto) (2.0-11.0) % Eos % (Auto) (0.0-4.0) % Baso % (Auto) (0.2-1.2) % Sodium (136-145) mmol/L Potassium (3.5-5.1) mmol/L Chloride (98-107) mmol/L Carbon Dioxide (21-32) mmol/L BUN (7-18) mg/dL Creatinine (0.55-1.02) mg/dL Est Cr Clr Drug Dosing mL/min Estimated GFR (MDRD) Glucose (74-106) mg/dL POC Glucose 281 H 230 H (74-106) mg/dL Hemoglobin A1c (4.5-6.2) % Calcium (8.5-10.1) mg/dL Magnesium (1.8-2.4) mg/dL NT-Pro-B Natriuret Pep (<=125) pg/mL TSH, Ultra Sensitive (0.358-3.74) uIU/mL Urine Color Dark yellow H (YELLOW) Urine Appearance Slightly cloudy H (CLEAR) Urine pH 5.5 (5.0-8.0) Ur Specific [place] 1.020 Urine Protein Trace H (NEGATIVE) mg/dL Urine Glucose (UA) 500 H (NEGATIVE) mg/dL Urine Ketones Trace H (NEGATIVE) mg/dL Urine Occult Blood Negative (NEGATIVE) Urine Nitrite Negative (NEGATIVE) Urine Bilirubin Negative (NEGATIVE) Urine Urobilinogen 0.2 (0.2) EU/dL Ur Leukocyte Esterase Negative (NEGATIVE) Urine RBC 0-5 (NOT SEEN) /HPF Urine WBC 0-5 (NOT SEEN) /HPF Ur Squamous Epith Cells Few H (NEGATIVE) /HPF Calcium Oxalate Crystal Occasional H (NEGATIVE) /HPF Urine Bacteria Few H (NEGATIVE) /HPF Urine Mucus Rare H (NEGATIVE) /LPF 02/25/18 02/25/18 02/25/18 Range/Units 07:46 07:46 07:46 WBC 3.8 L (4.0-10.0) x10^3/uL RBC 4.75 (4.00-5.50) x10^6/uL Hgb 14.1 (12.0-16.0) g/dL Hct 42.1 (33.0-47.0) % MCV 88.6 (78.0-93.0) fL MCH 29.7 (26.0-32.0) pg MCHC 33.5 (32.0-36.0) g/dL RDW Coeff of Ananda 14.4 (10.0-15.0) % Plt Count 66 L (130-400) x10^3/uL Neut % (Auto) 62.3 (50.0-80.0) % Lymph % (Auto) 26.0 (25.0-50.0) % Eddy % (Auto) 9.9 (2.0-11.0) % Eos % (Auto) 1.3 (0.0-4.0) % Baso % (Auto) 0.5 (0.2-1.2) % Sodium 140 (136-145) mmol/L Potassium 3.5 (3.5-5.1) mmol/L Chloride 104 (98-107) mmol/L Carbon Dioxide 26 (21-32) mmol/L BUN 11 (7-18) mg/dL Creatinine 1.0 (0.55-1.02) mg/dL Est Cr Clr Drug Dosing 43.27 mL/min Estimated GFR (MDRD) 54 Glucose 193 H (74-106) mg/dL POC Glucose (74-106) mg/dL Hemoglobin A1c 10.1 H (4.5-6.2) % Calcium 8.7 (8.5-10.1) mg/dL Magnesium 1.8 (1.8-2.4) mg/dL NT-Pro-B Natriuret Pep 387 H (<=125) pg/mL TSH, Ultra Sensitive 3.422 (0.358-3.74) uIU/mL Urine Color (YELLOW) Urine Appearance (CLEAR) Urine pH (5.0-8.0) Ur Specific [place] Urine Protein (NEGATIVE) mg/dL Urine Glucose (UA) (NEGATIVE) mg/dL Urine Ketones (NEGATIVE) mg/dL Urine Occult Blood (NEGATIVE) Urine Nitrite (NEGATIVE) Urine Bilirubin (NEGATIVE) Urine Urobilinogen (0.2) EU/dL Ur Leukocyte Esterase (NEGATIVE) Urine RBC (NOT SEEN) /HPF Urine WBC (NOT SEEN) /HPF Ur Squamous Epith Cells (NEGATIVE) /HPF Calcium Oxalate Crystal (NEGATIVE) /HPF Urine Bacteria (NEGATIVE) /HPF Urine Mucus (NEGATIVE) /LPF 07/03/17 Range/Units 11:07 WBC (4.0-10.0) x10^3/uL RBC (4.00-5.50) x10^6/uL Hgb (12.0-16.0) g/dL Hct (33.0-47.0) % MCV (78.0-93.0) fL MCH (26.0-32.0) pg MCHC (32.0-36.0) g/dL RDW Coeff of Ananda (10.0-15.0) % Plt Count (130-400) x10^3/uL Neut % (Auto) (50.0-80.0) % Lymph % (Auto) (25.0-50.0) % Eddy % (Auto) (2.0-11.0) % Eos % (Auto) (0.0-4.0) % Baso % (Auto) (0.2-1.2) % Sodium (136-145) mmol/L Potassium (3.5-5.1) mmol/L Chloride (98-107) mmol/L Carbon Dioxide (21-32) mmol/L BUN (7-18) mg/dL Creatinine (0.55-1.02) mg/dL Est Cr Clr Drug Dosing mL/min Estimated GFR (MDRD) Glucose (74-106) mg/dL POC Glucose 56 L (74-106) mg/dL Hemoglobin A1c (4.5-6.2) % Calcium (8.5-10.1) mg/dL Magnesium (1.8-2.4) mg/dL NT-Pro-B Natriuret Pep (<=125) pg/mL TSH, Ultra Sensitive (0.358-3.74) uIU/mL Urine Color (YELLOW) Urine Appearance (CLEAR) Urine pH (5.0-8.0) Ur Specific [place] Urine Protein (NEGATIVE) mg/dL Urine Glucose (UA) (NEGATIVE) mg/dL Urine Ketones (NEGATIVE) mg/dL Urine Occult Blood (NEGATIVE) Urine Nitrite (NEGATIVE) Urine Bilirubin (NEGATIVE) Urine Urobilinogen (0.2) EU/dL Ur Leukocyte Esterase (NEGATIVE) Urine RBC (NOT SEEN) /HPF Urine WBC (NOT SEEN) /HPF Ur Squamous Epith Cells (NEGATIVE) /HPF Calcium Oxalate Crystal (NEGATIVE) /HPF Urine Bacteria (NEGATIVE) /HPF Urine Mucus (NEGATIVE) /LPF Med Orders - Current: Current Medications Acetaminophen (Tylenol Extra Strength) 500 mg PO Q8HR PRN PRN Reason: Pain Albuterol (Ventolin Hfa) 0 gm INH Q4HR PRN PRN Reason: Shortness of Breath Artificial Tears (Tears Naturale Free) 0 each EYEBOTH BEDTIME [facility] Aspirin (Ecotrin) 325 mg PO DAILY@12 [place] Benzocaine/Menthol (Cepacol Sore Throat) 1 lozenge MUCMEM TID PRN PRN Reason: Cough Last Admin: 07/02/17 23:55 Dose: 1 lozenge Bupropion HCl (Wellbutrin Xl) 150 mg PO DAILY [facility] Capsaicin (Zostrix 0.025% Crm) 0 gm TOP Q6HR PRN PRN Reason: Pain Citalopram Hydrobromide (Celexa) 40 mg PO DAILY [facility] Last Admin: 07/03/17 07:45 Dose: 40 mg Fluticasone Propionate (Flonase) 0.0001 gm NASBOTH DAILY [facility] Last Admin: 07/03/17 07:44 Dose: 1 spray Guaifenesin (Robitussin) 400 mg PO Q4HR PRN PRN Reason: Other Insulin Detemir (Levemir) 0 unit SUBCUT BEDTIME [facility] Insulin Human Regular (Humulin R) 0 unit SUBCUT TIDAC [facility] PRN Reason: Protocol Levothyroxine Sodium (Levothyroxine) 25 mcg PO ACBREAKFAST [facility] Last Admin: 07/03/17 06:40 Dose: 25 mcg Loratadine (Claritin) 10 mg PO DAILY [facility] Last Admin: 07/03/17 07:45 Dose: 10 mg Losartan Potassium (Cozaar) 100 mg PO DAILY [facility] Last Admin: 07/03/17 07:45 Dose: 100 mg Mometasone Furoate (Asmanex 220 Mcg) 0 puff INH DAILY PRN PRN Reason: SHORTNESS OF BREATH Refresh Liquigel (Own Med) 0 drop EYEBOTH QID [facility] Last Admin: 07/03/17 11:43 Dose: 1 drop Methylphenidate 20 (Mg Own Med) 0 mg PO BID@0800,1500 [facility] Stop: 07/12/17 15:01 Last Admin: 07/03/17 10:31 Dose: 20 mg Ondansetron HCl (Zofran Odt) 4 mg PO Q6H PRN PRN Reason: nausea, able to take PO Oxybutynin Chloride (Oxybutynin Er) 10 mg PO DAILY@12 [facility] Oxycodone/Acetaminophen (Percocet 325-5 Mg) 2 tab PO Q4H PRN PRN Reason: Pain Pantoprazole Sodium (Protonix) 40 mg PO DAILY [facility] Last Admin: 07/03/17 07:45 Dose: 40 mg Simvastatin (Zocor) 20 mg PO BEDTIME [facility] Sitagliptin Phosphate (Januvia) 100 mg PO DAILY@12 [facility] Sodium Chloride (Saline Flush) 10 ml FLUSH ASDIRECTED PRN PRN Reason: Keep Vein Open Sodium Chloride (Saline Flush) 10 ml FLUSH ASDIRECTED PRN PRN Reason: Keep Vein Open Discontinued Medications Aspirin (Ecotrin) 325 mg PO DAILY [facility] Last Admin: 07/03/17 07:45 Dose: 325 mg Bupropion HCl (Wellbutrin) 150 mg PO DAILY [facility] Last Admin: 07/03/17 07:45 Dose: 150 mg Sodium Chloride (Normal Saline) 1,000 mls @ 50 mls/hr IV ASDIRECTED [facility] Last Admin: 07/02/17 22:08 Dose: 50 mls/hr Insulin Aspart (Novolog) 5 unit SUBCUT TIDMEALS [facility] Insulin Aspart (Novolog) 5 unit SUBCUT ONETIME ONE Stop: 07/02/17 18:39 Last Admin: 07/02/17 19:06 Dose: 5 units Insulin Human Regular (Humulin R) 0 unit SUBCUT TIDAC [facility] PRN Reason: Protocol Last Admin: 07/03/17 11:12 Dose: Not Given Non-Formulary Medication (Methylphenidate Hcl [Ritalin]) 20 mg PO BID [facility] Last Admin: 07/03/17 10:35 Dose: Not Given Non-Formulary Medication (Propylene Glycol/Peg 400 [Systane Liquid Gel Eye Drops ]) 1 drop EYEBOTH QID [facility] Last Admin: 07/03/17 08:16 Dose: Not Given Oxybutynin Chloride (Oxybutynin Er) 10 mg PO DAILY [facility] Last Admin: 07/03/17 07:44 Dose: 10 mg Sitagliptin Phosphate (Januvia) 100 mg PO DAILY [facility] Last Admin: 07/03/17 07:45 Dose: 100 mg - Exam General: Alert, Oriented, Cooperative, No Acute Distress HEENT: Other (thorough examination of the mouth/lips/buccal areas did not reveal and ulcers or open areas; mucous membranes are pink but dry in appearance ; no lesions palpated, but sensitive to assessment) Lungs: Clear to Auscultation, Normal Respiratory Effort Cardiovascular: Regular Rate, Regular Rhythm GI/Abdominal Exam: Normal Bowel Sounds, Soft, Non-Tender Extremities: Normal Inspection, No Pedal Edema Peripheral Pulses: 2+: Radial (L), Radial (R) Skin: Warm, Dry, Intact Neurological: No New Focal Deficit - Problem List & Annotations (1) Hyperglycemia due to type 2 diabetes mellitus SNOMED Code(s): 184654541061112 Code(s): E11.65 - TYPE 2 DIABETES MELLITUS WITH HYPERGLYCEMIA Status: Acute Priority: Medium Current Visit: Yes Qualifiers: Diabetes mellitus correction insulin use: with remote computer terminal operator use Qualified Code( s): E11.65 - Type 2 diabetes mellitus with hyperglycemia; Z79.4 - skilled nursing ( current) use of insulin; Z79.4 - skilled nursing (current) use of insulin; 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; 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 (2) Fatigue SNOMED Code(s): 32366434 Code(s): R53.83 - OTHER FATIGUE Status: Acute Priority: Medium Current Visit: Yes Qualifiers: Fatigue type: unspecified Qualified Code(s): R53.83 - Other fatigue (3) Weakness SNOMED Code(s): 35902249 Code(s): R53.1 - WEAKNESS Status: Acute Current Visit: Yes (4) Vascular dementia SNOMED Code(s): 877941660 Code(s): F01.50 - VASCULAR DEMENTIA WITHOUT BEHAVIORAL DISTURBANCE Status: Chronic Current Visit: No Qualifiers: Dementia behavioral disturbance: without behavioral disturbance Qualified Code(s): F01.50 - Vascular dementia without behavioral disturbance (5) Essential hypertension SNOMED Code(s): 90424462 Code(s): I10 - ESSENTIAL (PRIMARY) HYPERTENSION Status: Chronic Current Visit: No (6) Hyperlipidemia associated with type 2 diabetes mellitus SNOMED Code(s): 014622362637 Code(s): E11.69 - TYPE 2 DIABETES MELLITUS WITH OTHER SPECIFIED COMPLICATION ; E78.5 - HYPERLIPIDEMIA, UNSPECIFIED Status: Chronic Current Visit: No (7) Hypothyroidism (acquired) SNOMED Code(s): 869207303 Code(s): E03.9 - HYPOTHYROIDISM, UNSPECIFIED Status: Chronic Current Visit: No (8) GERD (gastroesophageal reflux disease) SNOMED Code(s): 574652345 Code(s): K21.9 - GASTRO-ESOPHAGEAL REFLUX DISEASE WITHOUT ESOPHAGITIS Status: Chronic Current Visit: No Qualifiers: Esophagitis presence: without esophagitis Qualified Code(s): K21.9 - Gastro -esophageal reflux disease without esophagitis (9) Depression SNOMED Code(s): 75547730 Code(s): F32.9 - MAJOR DEPRESSIVE DISORDER, SINGLE EPISODE, UNSPECIFIED Status: Acute Current Visit: Yes Qualifiers: Depression Type: major depressive disorder Major depression recurrence: recurrent Active/Remission status: currently active Major depression episode severity: moderate Qualified Code(s): F33.1 - Major depressive disorder, recurrent, moderate - Problem List Review Problem List Initiated/Reviewed/Updated: Yes - My Orders Last 24 Hours: My Active Orders 07/02/17 21:10 Patient Status [ADT] Routine Oxygen Therapy [RC] .PRN VTE/DVT Education [RC] .PRN Vital Signs [RC] 06,10,14,18,22,02 Resuscitation Status Routine 07/02/17 21:17 May Shower [RC] ASDIRECTED Up ad Rosmery [RC] ASDIRECTED Consult to Case Management [CONS] Routine PT Evaluation and Treatment [CONS] Routine Ondansetron [Zofran ODT] 4 mg PO Q6H PRN 07/02/17 21:21 Intake and Output [RC] 06,18 07/02/17 21:26 Accu Check [Blood Glucose Check, Bedside] [RC] 07,11,17,20 07/02/17 23:20 Benzocaine/Cetylpyrd/Menthol [Cepacol Sore Throat] 1 lozenge MUCMEM TID PRN 07/02/17 23:57 Acetaminophen [Tylenol Extra Strength] 500 mg PO Q8HR PRN Acetaminophen/oxyCODONE [Percocet 325-5 MG] 2 tab PO Q4H PRN Albuterol [Ventolin HFA] 0 gm INH Q4HR PRN Capsaicin [Zostrix 0.025% Crm] 0 gm TOP Q6HR PRN guaiFENesin [Robitussin] 400 mg PO Q4HR PRN 07/03/17 00:30 Mometasone Furoate [Asmanex 220 MCG] 0 puff INH DAILY PRN 07/03/17 01:55 MICROALBUMIN, URINE RANDOM Routine 07/03/17 03:46 Weight Daily [Height and Weight] [RC] 07 07/03/17 07:00 Levothyroxine 25 mcg PO ACBREAKFAST 07/03/17 08:00 Citalopram [Celexa] 40 mg PO DAILY Fluticasone Propionate [Flonase] 0.0001 gm NASBOTH DAILY Loratadine [Claritin] 10 mg PO DAILY Losartan [Cozaar] 100 mg PO DAILY Pantoprazole [ProTONIX] 40 mg PO DAILY 07/03/17 10:15 Propylene Glycol/Peg 400 [Systane Liquid Gel Eye Drops] 0 drop EYEBOTH QID 07/03/17 11:33 Pharmacy Consult [Consult to Pharmacy] [CONS] Routine 07/03/17 11:34 Consult to Occupational Therapy [OT Evaluation and Treatment] [CONS] Routine 07/03/17 12:42 Sodium Chloride 0.9% [Saline Flush] 10 ml FLUSH ASDIRECTED PRN Convert IV to Saline Lock [OM.PC] Routine 07/03/17 15:00 Methylphenidate Hcl [Ritalin] 0 mg PO BID@0800,1500 07/03/17 17:00 Insulin Regular, Human [HumuLIN R] See Protocol SUBCUT TIDAC 07/03/17 20:00 Dextran 70/Hypromellose/PF [Tears Naturale Free] 0 each EYEBOTH BEDTIME Insulin Detemir [Levemir] 0 unit SUBCUT BEDTIME Simvastatin [Zocor] 20 mg PO BEDTIME 07/04/17 05:11 BASIC METABOLIC PANEL,BMP [CHEM] Routine CBC WITH AUTO DIFF [HEME] Routine 07/04/17 08:00 buPROPion [Wellbutrin XL] 150 mg PO DAILY 07/04/17 12:00 Aspirin [Ecotrin] 325 mg PO DAILY@12 Oxybutynin [Oxybutynin ER] 10 mg PO DAILY@12 SitaGLIPtin [Januvia] 100 mg PO DAILY@12 - Assessment Assessment:: Hyperglycemia Uncontrolled diabetes Type II Weakness Fatigue Vascular dementia Hypothyroidism Essential Hypertension Depression GERD - Plan Plan:: 71 yo female patient with a past medical history of Diabetes Type II, vascular dementia, hypertension, hyperlipidemia, GERD, and depression, is admitted to the acute care floor at [facility] for hyperglycemia in the setting of diabetes type II, weakness, and fatigue 1. Uncontrolled DM with hyperglycemia - change to low dose SSI; continue home DM meds; needs DM education referral; A1C 10.1 today, ADA diet; stop IVF as patient is eating and drinking well, may consider increasing long acting med if blood sugars remain elevated 2. Weakness - secondary to hyperglycemia and poor diet control; does use a cane at home; with consult PT/OT; could also be from her depression and social isolation 3. Fatigue - dx with hypothyroidism; TSH normal; control blood sugars; ADA diet ; encourage increasing activity and social outings 4. Vascular dementia - consider starting dementia meds; would recommend Neuropsychology referral 5. HTN - continue with losartan; ADA diet; watch salt intake 6. Depression - continue with Wellbutrin and Lexapro; continue with therapy; encourage social outings; will have OT conduct a MME. 7. GERD - on PPI 8. Hypothyroidism - TSH normal today; continue with same dose of Levothyroxine CHF can be ruled out. BNP is still slightly elevated but lower than yesterday, CXR and EF are normal without any peripheral edema. I believe this will correct once blood sugars are under better control. Stop IVF's today, Creat improved. Patient needs to adhere to a ADA diet faithfully if at all possible; needs DM education. Will await PT/OT evals. Blood sugars are under better control, will change to a low-dose SSI. The patients wishes to be a full code at this time. Patient does wish to be transferred to a higher level of care should the need arise. I do anticipate the patient will be admitted for >48 hours due to symptomatic hyperglycemia. Recommend continuing with psychotherapy as outpatient. No changes with depression meds at this time. Continue all other home medications the same. Will consult pharmacy to take a look at all of patients meds. ? side effect causing oral issues, etiology of oral issues not exactly clear at this time. Exam of mouth did not reveal and ulcers. Will discuss case with CM, if patient is unable to manage her diabetes better, may need NH placement. Continue acute cares at this time. Possible discharge in a couple days if medical problems continue to improve.
[2017-07-03] MEDS: Benzocaine/Cetylpyridinium/Menthol Lozenge MUCMEM PRN ×2 (16:26→20:48)
[2017-07-03] MEDS: Simvastatin 20 MG Tab PO SCH (20:09)
[2017-07-03] MEDS: Insulin Detemir 100 Units/ML 3 ML Pen SUBCUT SCH (20:09)
[2017-07-03] MEDS: Dextran 70/Hypromellose/PF Ophth Soln 0.9 ML UD EYEBOTH SCH (20:12)
[2017-07-03] MEDS ORDERED: diphenhydrAMINE 50 MG/ML SDV IVPUSH ONE (20:15)
--- NOTE | 2017-07-03 20:15 | PCM.SN ---
- Free Text/Narrative Note: Called by the nursing staff (Genevieve) at 19:04 stating the patients mouth appears red, inflamed, and sore. Nurse states the patient seems to have trouble with phonation and swallowing. The patient has had this issue since last March. The patient states it started after she had left rotator cuff surgery. She states it happens for no apparent reason. She states she has a painful, burning sensation in her mouth when symptoms are at their worst. She has tried Magic Mouthwash, Nystatin swish/swallow, and warm salt water rinses. She states nothing has worked except the warm salt water seems to make it feel somewhat better for a short time. Symptoms do resolve at times. She states it has even woke her from her sleep. The patient was on Methotrexate over a year ago for Psoriatic Arthritis. She did become Methotrexate toxic, so the medication was discontinued. It was also found at the time the patient did not have Psoriatic arthritis, but merely Osteoarthritis. The is a remote possibility the burning sensation and discomfort the patient is feeling could be from when she was on the Methotrexate. No other etiology has been found. Exam on mouth was performed. No ulcers, swelling, or redness observed by this health technical writer. Voice seems a little hoarse, but that could merely be from having a dry mouth. No airway problems. Lungs are clear. No upper airway issues. Tongue normal. Gums normal. Lips are not swollen. Patient does not appear to be having any acute problems at this time. I will give a one time dose of Benadryl to see if this will make the symptoms better. Will continue researching the relation of Methotrexate with the burning mouth syndrome.
[2017-07-04] MEDS: Levothyroxine 25 MCG Tab PO SCH (06:21)
[2017-07-04] MEDS: Insulin Regular, Human 100 Units/ML 3 ML Vial SUBCUT SCH ×2 (06:22→12:31)
[2017-07-04 07:21] LABS: CHLORIDE,CL 106 mmol/L (98-107); SODIUM,NA 141 mmol/L (136-145)
[2017-07-04] MEDS: Benzocaine/Cetylpyridinium/Menthol Lozenge MUCMEM PRN ×3 (08:01→21:20)
[2017-07-04] MEDS: Pantoprazole 40 MG Tab.CR PO SCH (08:02)
[2017-07-04] MEDS: Losartan 50 MG Tab PO SCH (08:02)
[2017-07-04] MEDS: Citalopram 20 MG Tab PO SCH (08:02)
[2017-07-04] MEDS: buPROPion 150 MG Tab.ER PO SCH (08:02)
[2017-07-04] MEDS: Loratadine 10 MG Tab PO SCH (08:02)
[2017-07-04] MEDS: METHYLPHENIDATE 20 MG PO SCH ×2 (08:03→15:25)
[2017-07-04] MEDS: Fluticasone Propionate Nasal Spray 16 GM Bottle NASBOTH SCH (08:04)
[2017-07-04] MEDS: REFRESH LIQUIGEL EYEBOTH SCH ×4 (08:05→19:53)
[2017-07-04] MEDS ORDERED: Potassium Chloride 20 MEQ Tab.ER PO ONE (10:24)
[2017-07-04] MEDS ORDERED: Insulin Aspart 100 Units/ML 3 ML Pen SUBCUT SCH (11:10)
[2017-07-04] MEDS: Oxybutynin 5 MG Tab.ER PO SCH (12:26)
[2017-07-04] MEDS: Aspirin 325 MG Tab.EC PO SCH (12:27)
[2017-07-04] MEDS: Gabapentin 100 MG Cap PO SCH ×2 (12:37→19:53)
[2017-07-04] MEDS: Albuterol 0.083% 2.5 MG/3 ML Neb Soln NEB PRN (12:53)
[2017-07-04] MEDS: Budesonide 0.5 MG/2 ML Neb Susp NEB SCH ×2 (12:54→19:53)
--- NOTE | 2017-07-04 15:17 | PCM.PN ---
- General Info Date of Service: 07/04/17 Admission Dx/Problem (Free Text): Admission Diagnosis/Problem Admission Diagnosis/Problem Hyperglycemia Uncontrolled Diabetes Type II Weakness Fatigue Subjective Update: Patient continues to complain of a burning sensation of her lower lip and now around her lower gums. She states this has been presents for the past couple of months. She is doing warm salt water gargles which see to help. Otherwise, no other specific complaints. She states she is urinating ok and no issues with BM' s. Tolerating diet ok. No chest pain or SOB. No abdominal pain. Functional Status: Reports: Pain Controlled, Tolerating Diet, Ambulating, Urinating Pain Score: 0 - Review of Systems General: Reports: Fatigue. Denies: Fever, Weakness, Chills HEENT: Reports: Other (burning sensation of mouth) Pulmonary: Denies: Shortness of Breath, Cough Cardiovascular: Denies: Chest Pain, Palpitations Gastrointestinal: Denies: Abdominal Pain, Nausea, Vomiting Skin: Reports: No Symptoms Neurological: Reports: No Symptoms. Denies: Dizziness, Headache - Patient Data Vitals - Most Recent: Last Vital Signs Temp 37.5 C 07/04/17 13:39 Pulse 90 07/04/17 13:39 Resp 20 07/04/17 13:39 BP 136/70 07/04/17 13:39 Pulse Ox 92 L 07/04/17 13:39 Orthostatic Blood Pressure [ 125/81 Standing] Orthostatic Blood Pressure [ 117/73 Sitting] Orthostatic Blood Pressure [ 135/76 Supine] Weight - Most Recent: 88.224 kg I&O - Last 24 Hours: Intake & Output 07/04/17 07/04/17 07/04/17 06:59 14:59 22:59 Intake Total 400 440 Output Total 550 300 Balance -150 140 Lab Results Last 24 Hours: Laboratory Results - last 24 hr 07/03/17 07/03/17 07/04/17 Range/Units 17:13 20:08 06:19 WBC (4.0-10.0) x10^3/uL RBC (4.00-5.50) x10^6/uL Hgb (12.0-16.0) g/dL Hct (33.0-47.0) % MCV (78.0-93.0) fL MCH (26.0-32.0) pg MCHC (32.0-36.0) g/dL RDW Coeff of Ananda (10.0-15.0) % Plt Count (130-400) x10^3/uL Neut % (Auto) (50.0-80.0) % Lymph % (Auto) (25.0-50.0) % [place] % (Auto) (2.0-11.0) % Eos % (Auto) (0.0-4.0) % Baso % (Auto) (0.2-1.2) % Sodium (136-145) mmol/L Potassium (3.5-5.1) mmol/L Chloride (98-107) mmol/L Carbon Dioxide (21-32) mmol/L BUN (7-18) mg/dL Creatinine (0.55-1.02) mg/dL Est Cr Clr Drug Dosing mL/min Estimated GFR (MDRD) Glucose (74-106) mg/dL POC Glucose 215 H 271 H 123 H (74-106) mg/dL Calcium (8.5-10.1) mg/dL 07/04/17 07/04/17 07/04/17 Range/Units 06:30 06:30 11:19 WBC 3.7 L (4.0-10.0) x10^3/uL RBC 4.42 (4.00-5.50) x10^6/uL Hgb 13.2 (12.0-16.0) g/dL Hct 39.8 (33.0-47.0) % MCV 90.0 (78.0-93.0) fL MCH 29.9 (26.0-32.0) pg MCHC 33.2 (32.0-36.0) g/dL RDW Coeff of Ananda 14.5 (10.0-15.0) % Plt Count 55 L (130-400) x10^3/uL Neut % (Auto) 55.1 (50.0-80.0) % Lymph % (Auto) 30.2 (25.0-50.0) % [place] % (Auto) 12.8 H (2.0-11.0) % Eos % (Auto) 1.6 (0.0-4.0) % Baso % (Auto) 0.3 (0.2-1.2) % Sodium 141 (136-145) mmol/L Potassium 3.3 L (3.5-5.1) mmol/L Chloride 106 (98-107) mmol/L Carbon Dioxide 27 (21-32) mmol/L BUN 10 (7-18) mg/dL Creatinine 0.9 (0.55-1.02) mg/dL Est Cr Clr Drug Dosing 48.07 mL/min Estimated GFR (MDRD) > 60 Glucose 137 H (74-106) mg/dL POC Glucose 231 H (74-106) mg/dL Calcium 8.5 (8.5-10.1) mg/dL Med Orders - Current: Current Medications Acetaminophen (Tylenol Extra Strength) 500 mg PO Q8HR PRN PRN Reason: Pain Albuterol (Proventil Neb Soln) 2.5 mg NEB Q4HRRT PRN PRN Reason: sob Last Admin: 07/04/17 12:53 Dose: 2.5 mg Artificial Tears (Tears Naturale Free) 0 each EYEBOTH BEDTIME [facility] Last Admin: 07/03/17 20:12 Dose: 1 each Aspirin (Ecotrin) 325 mg PO DAILY@12 [facility] Last Admin: 07/04/17 12:27 Dose: 325 mg Benzocaine/Menthol (Cepacol Sore Throat) 1 lozenge MUCMEM TID PRN PRN Reason: Cough Last Admin: 07/04/17 08:01 Dose: 1 lozenge Budesonide (Pulmicort) 0.5 mg NEB BIDRT [facility] Last Admin: 07/04/17 12:54 Dose: 0.5 mg Bupropion HCl (Wellbutrin Xl) 150 mg PO DAILY [facility] Last Admin: 07/04/17 08:02 Dose: 150 mg Capsaicin (Zostrix 0.025% Crm) 0 gm TOP Q6HR PRN PRN Reason: Pain Citalopram Hydrobromide (Celexa) 40 mg PO DAILY [facility] Last Admin: 07/04/17 08:02 Dose: 40 mg Fluticasone Propionate (Flonase) 0 gm NASBOTH DAILY [facility] Gabapentin (Neurontin) 100 mg PO BID [facility] Last Admin: 07/04/17 12:37 Dose: 100 mg Guaifenesin (Robitussin) 400 mg PO Q4HR PRN PRN Reason: Other Last Admin: 07/03/17 20:48 Dose: 400 mg Insulin Aspart (Novolog) 0 unit SUBCUT TIDMEALS [facility] PRN Reason: Protocol Insulin Detemir (Levemir) 0 unit SUBCUT BEDTIME [facility] Last Admin: 07/03/17 20:09 Dose: 50 units Levothyroxine Sodium (Levothyroxine) 25 mcg PO ACBREAKFAST [facility] Last Admin: 07/04/17 06:21 Dose: 25 mcg Loratadine (Claritin) 10 mg PO DAILY [facility] Last Admin: 07/04/17 08:02 Dose: 10 mg Losartan Potassium (Cozaar) 100 mg PO DAILY [facility] Last Admin: 07/04/17 08:02 Dose: 100 mg Refresh Liquigel (Own Med) 0 drop EYEBOTH QID [facility] Last Admin: 07/04/17 12:27 Dose: Not Given Methylphenidate 20 (Mg Own Med) 0 mg PO BID@0800,1500 [facility] Stop: 07/12/17 15:01 Last Admin: 07/04/17 08:03 Dose: 20 mg Ondansetron HCl (Zofran Odt) 4 mg PO Q6H PRN PRN Reason: nausea, able to take PO Oxybutynin Chloride (Oxybutynin Er) 10 mg PO DAILY@12 [facility] Last Admin: 07/04/17 12:26 Dose: 10 mg Oxycodone/Acetaminophen (Percocet 325-5 Mg) 2 tab PO Q4H PRN PRN Reason: Pain Pantoprazole Sodium (Protonix) 40 mg PO DAILY [facility] Last Admin: 07/04/17 08:02 Dose: 40 mg Simvastatin (Zocor) 20 mg PO BEDTIME [facility] Last Admin: 07/03/17 20:09 Dose: 20 mg Sodium Chloride (Saline Flush) 10 ml FLUSH ASDIRECTED PRN PRN Reason: Keep Vein Open Discontinued Medications Aspirin (Ecotrin) 325 mg PO DAILY [facility] Last Admin: 07/03/17 07:45 Dose: 325 mg Bupropion HCl (Wellbutrin) 150 mg PO DAILY [facility] Last Admin: 07/03/17 07:45 Dose: 150 mg Diphenhydramine HCl (Benadryl) 50 mg IVPUSH ONETIME ONE Stop: 07/03/17 20:16 Last Admin: 07/03/17 20:48 Dose: 50 mg Fluticasone Propionate (Flonase) 0.0001 gm NASBOTH DAILY [facility] Last Admin: 07/04/17 08:04 Dose: 1 spray Sodium Chloride (Normal Saline) 1,000 mls @ 50 mls/hr IV ASDIRECTED [facility] Last Admin: 07/02/17 22:08 Dose: 50 mls/hr Insulin Aspart (Novolog) 5 unit SUBCUT TIDMEALS [facility] Insulin Aspart (Novolog) 5 unit SUBCUT ONETIME ONE Stop: 07/02/17 18:39 Last Admin: 07/02/17 19:06 Dose: 5 units Insulin Aspart (Novolog) 0 unit SUBCUT TIDAC [facility] PRN Reason: Protocol Last Admin: 07/04/17 11:22 Dose: 2 units Insulin Human Regular (Humulin R) 0 unit SUBCUT TIDAC [facility] PRN Reason: Protocol Last Admin: 07/03/17 11:12 Dose: Not Given Insulin Human Regular (Humulin R) 0 unit SUBCUT TIDAC [facility] PRN Reason: Protocol Last Admin: 07/04/17 12:31 Dose: Not Given Non-Formulary Medication (Methylphenidate Hcl [Ritalin]) 20 mg PO BID [facility] Last Admin: 07/03/17 10:35 Dose: Not Given Non-Formulary Medication (Propylene Glycol/Peg 400 [Systane Liquid Gel Eye Drops ]) 1 drop EYEBOTH QID [facility] Last Admin: 07/03/17 08:16 Dose: Not Given Oxybutynin Chloride (Oxybutynin Er) 10 mg PO DAILY [facility] Last Admin: 07/03/17 07:44 Dose: 10 mg Potassium Chloride (Klor-Con M20) 40 meq PO ONETIME ONE Stop: 07/04/17 10:25 Last Admin: 07/04/17 11:18 Dose: 40 meq Sitagliptin Phosphate (Januvia) 100 mg PO DAILY [facility] Last Admin: 07/03/17 07:45 Dose: 100 mg Sitagliptin Phosphate (Januvia) 100 mg PO DAILY@12 [facility] Last Admin: 07/04/17 12:32 Dose: Not Given - Exam General: Alert, Oriented, Cooperative, No Acute Distress HEENT: Other (oral cavity thoroughly examined; no ulcers or open areas noted; mucous membranes are dry; teeth intact; mucosa pink; posterior oropharnyx normal ) Lungs: Clear to Auscultation, Normal Respiratory Effort Cardiovascular: Regular Rate, Regular Rhythm GI/Abdominal Exam: Normal Bowel Sounds, Soft, Non-Tender Peripheral Pulses: 2+: Radial (L), Radial (R) Skin: Warm, Dry, Intact Neurological: No New Focal Deficit - Problem List & Annotations (1) Hyperglycemia due to type 2 diabetes mellitus SNOMED Code(s): 907335042568192 Code(s): E11.65 - TYPE 2 DIABETES MELLITUS WITH HYPERGLYCEMIA Status: Acute Priority: Medium Current Visit: Yes Qualifiers: Diabetes mellitus fci insulin use: with fci use Qualified Code( s): E11.65 - Type 2 diabetes mellitus with hyperglycemia; Z79.4 - buttermaker helper ( current) use of insulin; Z79.4 - buttermaker helper (current) use of insulin; Z79.4 - custodial (current) use of insulin; Z79.4 - custodial (current) use of insulin (2) Fatigue SNOMED Code(s): 71117233 Code(s): R53.83 - OTHER FATIGUE Status: Acute Priority: Medium Current Visit: Yes Qualifiers: Fatigue type: unspecified Qualified Code(s): R53.83 - Other fatigue (3) Weakness SNOMED Code(s): 76784447 Code(s): R53.1 - WEAKNESS Status: Acute Current Visit: Yes (4) Vascular dementia SNOMED Code(s): 229379170 Code(s): F01.50 - VASCULAR DEMENTIA WITHOUT BEHAVIORAL DISTURBANCE Status: Chronic Current Visit: No Qualifiers: Dementia behavioral disturbance: without behavioral disturbance Qualified Code(s): F01.50 - Vascular dementia without behavioral disturbance (5) Essential hypertension SNOMED Code(s): 57565599 Code(s): I10 - ESSENTIAL (PRIMARY) HYPERTENSION Status: Chronic Current Visit: No (6) Hyperlipidemia associated with type 2 diabetes mellitus SNOMED Code(s): 315249289104 Code(s): E11.69 - TYPE 2 DIABETES MELLITUS WITH OTHER SPECIFIED COMPLICATION ; E78.5 - HYPERLIPIDEMIA, UNSPECIFIED Status: Chronic Current Visit: No (7) Hypothyroidism (acquired) SNOMED Code(s): 241949144 Code(s): E03.9 - HYPOTHYROIDISM, UNSPECIFIED Status: Chronic Current Visit: No (8) GERD (gastroesophageal reflux disease) SNOMED Code(s): 615478131 Code(s): K21.9 - GASTRO-ESOPHAGEAL REFLUX DISEASE WITHOUT ESOPHAGITIS Status: Chronic Current Visit: No Qualifiers: Esophagitis presence: without esophagitis Qualified Code(s): K21.9 - Gastro -esophageal reflux disease without esophagitis (9) Depression SNOMED Code(s): 02012728 Code(s): F32.9 - MAJOR DEPRESSIVE DISORDER, SINGLE EPISODE, UNSPECIFIED Status: Chronic Current Visit: Yes Qualifiers: Depression Type: major depressive disorder Major depression recurrence: recurrent Active/Remission status: currently active Major depression episode severity: moderate Qualified Code(s): F33.1 - Major depressive disorder, recurrent, moderate (10) Asthma SNOMED Code(s): 749056043 Code(s): J45.909 - UNSPECIFIED ASTHMA, UNCOMPLICATED Status: Chronic Current Visit: No Qualifiers: Asthma severity: mild Asthma persistence: intermittent Asthma complication type: uncomplicated Qualified Code(s): J45.20 - Mild intermittent asthma, uncomplicated - Problem List Review Problem List Initiated/Reviewed/Updated: Yes - My Orders Last 24 Hours: My Active Orders 07/03/17 15:00 Methylphenidate Hcl [Ritalin] 0 mg PO BID@0800,1500 07/03/17 20:00 Dextran 70/Hypromellose/PF [Tears Naturale Free] 0 each EYEBOTH BEDTIME Insulin Detemir [Levemir] 0 unit SUBCUT BEDTIME Simvastatin [Zocor] 20 mg PO BEDTIME 07/04/17 08:00 buPROPion [Wellbutrin XL] 150 mg PO DAILY 07/04/17 10:49 Albuterol [Proventil Neb Soln] 2.5 mg NEB Q4HRRT PRN 07/04/17 10:50 RT Aerosol Therapy [RC] ASDIRECTED 07/04/17 12:00 Aspirin [Ecotrin] 325 mg PO DAILY@12 Oxybutynin [Oxybutynin ER] 10 mg PO DAILY@12 07/04/17 12:15 RT Aerosol Therapy [RC] ASDIRECTED Budesonide [Pulmicort] 0.5 mg NEB BIDRT 07/04/17 12:30 Gabapentin [Neurontin] 100 mg PO BID 07/04/17 18:00 Insulin Aspart [NovoLOG] 0 unit SUBCUT TIDMEALS 07/05/17 05:11 BASIC METABOLIC PANEL,BMP [CHEM] Routine CBC WITH AUTO DIFF [HEME] Routine 07/05/17 08:00 Fluticasone Propionate [Flonase] 0 gm NASBOTH DAILY - Assessment Assessment:: Hyperglycemia Uncontrolled diabetes Type II Weakness Fatigue Vascular dementia Hypothyroidism Essential Hypertension Depression GERD - Plan Plan:: Hospital day #3 for a 71 yo female patient with a past medical history of Diabetes Type II, vascular dementia, hypertension, hyperlipidemia, GERD, and depression, admitted to the acute care floor at [facility] for hyperglycemia in the setting of diabetes type II, weakness, and fatigue 1. Uncontrolled DM with hyperglycemia - change to low dose SSI stop regular and start novolog; continue sub for Basaglar; stop Januvia as this has not added benefit at this point; needs DM education and collection manager referral; ADA diet; may consider increasing long acting med if blood sugars remain elevated 2. Weakness - PT eval today, did well so PT not recommended; awaiting OT eval at time of this dictation; weakness much improved today 3. Fatigue - dx with hypothyroidism; TSH normal; control blood sugars; ADA diet ; encourage increasing activity and social outings; continue Ritalin 4. Vascular dementia - consider starting dementia meds; would recommend Neuropsychology referral; OT for cognitive eval today 5. HTN - continue with losartan; ADA diet; watch salt intake 6. Depression - continue with Wellbutrin and Lexapro; continue with therapy; encourage social outings; will have OT conduct a MME. 7. GERD - on PPI; diet control 8. Hypothyroidism - TSH normal; continue with same dose of Levothyroxine 9. Asthma - schedule Budesonide as this med should not be PRN; recommend outpatient PFT's re-eval asthma Will stop NSAIDS as patient has a history of JANET and per recommendation of Rheumatology. Recommend only Tylenol for pain. Will probably discontinue Oxycodone at discharge since the patient has not needed any while admitted. Change regular insulin to Novolog. Start low dose gabapentin BID to see if this will help with the burning sensation of her oral cavity. For history of asthma, Budesonide needs to be scheduled and not PRN, will start today. Stop Januvia as this med is of little help at this point. I do anticipate a discharge back to [facility] tomorrow. Patient will need extensive diabetic education prior to discharge. Will have collection manager see patient prior to going home. Continue acute cares for now.
[2017-07-04] MEDS: Insulin Aspart 100 Units/ML 3 ML Pen SUBCUT SCH (18:10)
[2017-07-04] MEDS: Insulin Detemir 100 Units/ML 3 ML Pen SUBCUT SCH (19:52)
[2017-07-04] MEDS: Simvastatin 20 MG Tab PO SCH (19:53)
[2017-07-04] MEDS: Dextran 70/Hypromellose/PF Ophth Soln 0.9 ML UD EYEBOTH SCH (19:53)
[2017-07-05] MEDS: Levothyroxine 25 MCG Tab PO SCH (06:17)
[2017-07-05 06:57] LABS: CHLORIDE,CL 109 mmol/L (98-107); SODIUM,NA 145 mmol/L (136-145)
[2017-07-05] MEDS: Budesonide 0.5 MG/2 ML Neb Susp NEB SCH (07:07)
[2017-07-05] MEDS: Albuterol 0.083% 2.5 MG/3 ML Neb Soln NEB PRN (07:07)
[2017-07-05] MEDS: Citalopram 20 MG Tab PO SCH (07:34)
[2017-07-05] MEDS: buPROPion 150 MG Tab.ER PO SCH (07:34)
[2017-07-05] MEDS: Losartan 50 MG Tab PO SCH (07:34)
[2017-07-05] MEDS: Benzocaine/Cetylpyridinium/Menthol Lozenge MUCMEM PRN ×2 (07:34→12:16)
[2017-07-05] MEDS: Pantoprazole 40 MG Tab.CR PO SCH (07:34)
[2017-07-05] MEDS: Loratadine 10 MG Tab PO SCH (07:34)
[2017-07-05] MEDS: Gabapentin 100 MG Cap PO SCH (07:34)
[2017-07-05] MEDS: METHYLPHENIDATE 20 MG PO SCH (07:35)
[2017-07-05] MEDS: REFRESH LIQUIGEL EYEBOTH SCH ×2 (07:36→12:16)
[2017-07-05] MEDS: Insulin Aspart 100 Units/ML 3 ML Pen SUBCUT SCH ×2 (07:54→12:16)
[2017-07-05] MEDS ORDERED: Fluticasone Propionate Nasal Spray 16 GM Bottle NASBOTH SCH (08:00)
--- NOTE | 2017-07-05 08:41 | PCM.DCSUM1 ---
Discharge Summary - Hospital Course HPI Initial Comments: 71 yo female patient was brought to the Emergency Room at [facility] on for elevated blood sugar, weakness, and fatigue. The patient had stated her symptoms started a couple of days ago. Patient did fall at home on 2017. She states she landed on her right shoulder which seem to bother her somewhat. She has full ROM and does not seem to have any deficits. She recently underwent left rotator cuff repair 04/07/2017. She has not complaints with the left shoulder. The patient admits she has not been taking her diabetic medications as prescribed. She actually ran out of her insulin for 3 days. She states she has been urinating "a lot more than usual." She states she feels very fatigue and weak. She denies any nausea, vomiting or diarrhea. No headaches. She did have shaking spells at home over the past day or so. She states it has been more difficult to walk with her cane. She admits she does not follow an ADA diet. She states she ate [employer] yesterday and had a regular [employer] today. Apparently patient has been eating at [employer] daily. Patient denies any new visual problems. She feels thirsty most of the say. She has a history of diabetic neuropathy and nephropathy. Patient denies any chest pain or SOB. No abdominal pain. No UTI symptoms. Patient is SENE[place]. Patient states she is not sure why she does not follow her PCP's direction with diabetes control. She has kept her blood pressure and cholesterol levels under control with medications. It was felt the patient has some mild CHF on admission. Patient's BNP is 523; todays CXR did not show any cardiomegaly; some crackles in the right base without any peripheral edema. The patient's last Echo was 04/2016 with an EF at that time was 60-65%. The Echo did show some mild AI, otherwise ventricles were normal. Patient has a history of JANET in the past. Her Creat has progressively been elevated over the past year. A year ago her Creat was 1.00, at 6 months slightly elevated at 1.01, and 3 months ago 1.17. Today her Creat is up to 1.2. Patient's last HgbA1C March 2017 was 8.4, up from 6.10 Sep 2016. 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; Z79.4 - FDC (current) use of insulin (2) Fatigue SNOMED Code(s): 53258240 ICD Code: R53.83 - OTHER FATIGUE Status: Resolved Priority: Medium Current Visit: Yes Qualifiers: Fatigue type: unspecified Qualified Code(s): R53.83 - Other fatigue (3) Weakness SNOMED Code(s): 09403637 ICD Code: R53.1 - WEAKNESS Status: Resolved Current Visit: Yes (4) Vascular dementia SNOMED Code(s): 277151614 ICD Code: F01.50 - VASCULAR DEMENTIA WITHOUT BEHAVIORAL DISTURBANCE Status : Chronic Current Visit: No Qualifiers: Dementia behavioral disturbance: without behavioral disturbance Qualified Code(s): F01.50 - Vascular dementia without behavioral disturbance (5) Essential hypertension SNOMED Code(s): 71559745 ICD Code: I10 - ESSENTIAL (PRIMARY) HYPERTENSION Status: Chronic Current Visit: No (6) Hyperlipidemia associated with type 2 diabetes mellitus SNOMED Code(s): 386031958594 ICD Code: E11.69 - TYPE 2 DIABETES MELLITUS WITH OTHER SPECIFIED COMPLICATION ; E78.5 - HYPERLIPIDEMIA, UNSPECIFIED Status: Chronic Current Visit: No (7) Hypothyroidism (acquired) SNOMED Code(s): 570364374 ICD Code: E03.9 - HYPOTHYROIDISM, UNSPECIFIED Status: Chronic Current Visit: No (8) GERD (gastroesophageal reflux disease) SNOMED Code(s): 547644434 ICD Code: K21.9 - GASTRO-ESOPHAGEAL REFLUX DISEASE WITHOUT ESOPHAGITIS Status: Chronic Current Visit: No Qualifiers: Esophagitis presence: without esophagitis Qualified Code(s): K21.9 - Gastro -esophageal reflux disease without esophagitis (9) Depression SNOMED Code(s): 94205741 ICD Code: F32.9 - MAJOR DEPRESSIVE DISORDER, SINGLE EPISODE, UNSPECIFIED Status: Chronic Current Visit: Yes Qualifiers: Depression Type: major depressive disorder Major depression recurrence: recurrent Active/Remission status: currently active Major depression episode severity: moderate Qualified Code(s): F33.1 - Major depressive disorder, recurrent, moderate (10) Asthma SNOMED Code(s): 782531000 ICD Code: J45.909 - UNSPECIFIED ASTHMA, UNCOMPLICATED Status: Chronic Current Visit: No Qualifiers: Asthma severity: mild Asthma persistence: intermittent Asthma complication type: uncomplicated Qualified Code(s): J45.20 - Mild intermittent asthma, uncomplicated - Patient Summary/Data Operative Procedure(s) Performed: None Consults: Consultations 07/02/17 21:17 Consult to Case Management [CONS] Routine PT Evaluation and Treatment [CONS] Routine 07/03/17 11:33 Pharmacy Consult [Consult to Pharmacy] [CONS] Routine 07/03/17 11:34 Consult to Occupational Therapy [OT Evaluation and Treatment] [CONS] Routine 07/04/17 15:37 Consult to Dorr Operator [CONS] Routine Labs Pending at D/C: None Recommended Follow-up Testing/Procedures: BMP, Director Part and Dorr Operator referrals Planned Operative Procedure(s) after DC: None Hospital Course: Patient remained hemodynamically stable during her stay. No fevers. She ambulated in her room and hallways with only a cane. PT did see the patient but felt she was doing well on her own. OT also saw this patient and felt she is safe to go home. is able to assist when needed. Her blood sugars did remain elevated, but much better than admission. Januvia was stopped and Basaglar and meal time insulin initiated. She continued to complain of burning mouth pain, so gabapentin was started yesterday. She states her mouth symptoms are better today. Will start a B complex to see if this will help her mouth symptoms. Kidney function did improve, however, with recommend no NSAIDS. WBC's and platelets remained on the low side with no known etiology. Pain was well controlled without any pain medications. No issues with N/V/D. No chest pain or SOB. Budesonide changes to schedule for history of asthma. Patient tolerated eating and PO fluids without problems. No issues with BM's. Frequent urination resolved at time of discharge. - Patient Instructions Diet: Low Sodium, Diabetic Diet Activity: Rest and Relax Today Driving: Do Not Drive Showering/Bathing: May Shower Notify Provider of: Fever, Increased Pain, Nausea and/or Vomiting Other/Special Instructions: Elevated blood sugars - Discharge Plan Prescriptions/Med Rec: Budesonide [Pulmicort Flexhaler] 2 puff IH BID #1 inhaler Gabapentin [Neurontin] 1 cap PO BID 30 Days #60 capsule Insulin Aspart [Novolog] See Protocol SQ TIDMEALS #1 pen Home Medications: Home Meds Albuterol [Proair HFA] 2 puff INH Q4HR PRN 11/06/14 [History] Aspirin 325 mg PO DAILY@119911/06/14 [History] Escitalopram Oxalate [Lexapro] 30 mg PO DAILY@89911/06/14 [History] Fexofenadine [Alem] 180 mg PO DAILY@89911/06/14 [History] Fluticasone Propionate [Flonase] 50 mcg JOSÉ MIGUEL DAILY@89911/06/14 [History] Lutein/Minerals/Vit A,C & E [I-Twyla] 1 tab PO DAILY@119911/06/14 [History] Multivitamins w-Iron/Ca/FA/Min [Thera M Plus] 1 tab PO DAILY@119911/06/14 [ History] Yale-3 Fatty Acids [Yale-3] 1,000 mg PO BEDTIME 11/06/14 [History] Oxybutynin Chloride [Ditropan Xl] 10 mg PO DAILY@119911/06/14 [History] Simvastatin 20 mg PO DAILY@191411/06/14 [History] Acetaminophen [Tylenol Extra Strength] 500 - 1,000 mg PO Q8HR PRN MDD 4000 MG [History] Calcium Carbonate/Vitamin D3 [Liquid Calcium 600-Vit D3 Sfgl] 1 tab PO BID@1199, 191407/02/17 [History] Capsaicin [Zostrix 0.025% Crm] 1 applic TOP Q6HR PRN 07/02/17 [History] Carboxymethylcellulose Sodium [Refresh Liquigel 1%] 1 drop EYEBOTH DAILY@1914 [History] Clotrimazole/Betamethasone Dip [Lotrisone Cream] 1 applic TP BID PRN 07/02/17 [ History] Levothyroxine 25 mcg PO ACBREAKFAST 07/02/17 [History] Methylphenidate HCl [Ritalin] 20 mg PO BID@0900,1500 07/02/17 [History] Pantoprazole [ProTONIX] 40 mg PO DAILY@0830 07/02/17 [History] Propylene Glycol/Peg 400 [Systane Liquid Gel Eye Drops] 1 drop EYEBOTH QID 07/02 [History] Telmisartan [Micardis] 80 mg PO DAILY@0900 07/02/17 [History] guaiFENesin [Robitussin] 20 ml PO Q4HR PRN 07/02/17 [History] buPROPion [buPROPion XL] 150 mg PO DAILY@0900 07/03/17 [History] Insulin Glargine,Hum.Rec.Anlog [Basaglar Kwikpen U-100] 50 unit SQ DAILY@1915 [History] Budesonide [Pulmicort Flexhaler] 2 puff IH BID #1 inhaler 07/05/17 [Rx] Gabapentin [Neurontin] 1 cap PO BID 30 Days #60 capsule 07/05/17 [Rx] Insulin Aspart [Novolog] See Protocol SQ TIDMEALS #1 pen 07/05/17 [Rx] Patient Handouts: Hyperglycemia, [id number], Blood Glucose Monitoring, Adult , Hypoglycemia, [id number], Diabetes Mellitus and Food Referrals: Chantel Butcher NP [Primary Care Provider] - 07/12/17 1:20 pm (You have a follow up appt. with Chantel Butcher on July 12, 2017 at [facility]) - Discharge Summary/Plan Comment DC Time >30 min.: Yes Discharge Summary/Plan Comment: Hospital day #4 for a 71 yo female patient with a past medical history of Diabetes Type II, vascular dementia, hypertension, hyperlipidemia, GERD, and depression, admitted to the acute care floor at [facility] for hyperglycemia in the setting of diabetes type II, weakness, and fatigue. Patient will be discharged home to assisted living today. 1. Uncontrolled DM with hyperglycemia - change to low dose SSI stop regular and start novolog; continue with Basaglar; stop Januvia as this has not added benefit at this point; needs DM education and dairy manufacturing technologist referral; ADA diet; had long discussion with patient regarding diabetic diet, carb counting, checking blood sugars, etc. 2. Weakness -weakness much improved today; advised to continue using cane 3. Fatigue -TSH normal at 3.42; control blood sugars; ADA diet; encourage increasing activity and social outings; continue Ritalin 4. Vascular dementia - may consider starting dementia meds; would recommend Neuropsychology referral; 5. HTN - continue with Micardis; ADA diet; watch salt intake 6. Depression - continue with Wellbutrin and Lexapro; continue with therapy; encourage social outings. 7. GERD - on PPI; diet control 8. Hypothyroidism - TSH normal 3.42; continue with same dose of Levothyroxine 9. Asthma - schedule Budesonide as this med should not be PRN; recommend outpatient PFT's re-eval asthma; PRN Albuterol inhaler ok Will stop NSAIDS as patient has a history of JANET and per recommendation of Rheumatology. Recommend only Tylenol for pain. Will discontinue Oxycodone at discharge since the patient has not needed any while admitted. Start Novolog with low dose SSI. Start low dose gabapentin BID and B complex for burning sensation of her oral cavity. For history of asthma, Budesonide needs to be scheduled and not PRN, changed yesterday. Stop Januvia as this med is of little help at this point. Discharge home today to Assisted Living facility. Continue all other medications the same. - General Info Date of Service: 07/05/17 Admission Dx/Problem (Free Text: Admission Diagnosis/Problem Admission Diagnosis/Problem Hyperglycemia Uncontrolled Diabetes Type II Weakness Fatigue Subjective Update: Patient offers no specific complaints this morning. She states her mouth burning is better today. She denies any trouble with urination or BM's. Tolerated PO fluids and foods. Has been walking independently around room and hallways. No chest pain. No SOB. Functional Status: Reports: Pain Controlled, Tolerating Diet, Ambulating, Urinating - Review of Systems General: Denies: Fever, Weakness, Fatigue, Chills Pulmonary: Denies: Shortness of Breath, Cough Cardiovascular: Denies: Chest Pain, Palpitations Gastrointestinal: Denies: Abdominal Pain, Nausea, Vomiting Skin: Reports: No Symptoms Neurological: Reports: No Symptoms. Denies: Dizziness, Headache - Patient Data Vitals - Most Recent: Last Vital Signs Temp 36.3 C 07/05/17 06:00 Pulse 62 07/05/17 06:00 Resp 19 07/05/17 06:00 BP 139/78 07/05/17 06:00 Pulse Ox 96 07/05/17 06:00 Orthostatic Blood Pressure [ 125/81 Standing] Orthostatic Blood Pressure [ 117/73 Sitting] Orthostatic Blood Pressure [ 135/76 Supine] Weight - Most Recent: 87.657 kg I&O - Last 24 hours: Intake & Output 07/04/17 07/05/17 07/05/17 22:59 06:59 14:59 Intake Total 120 1200 300 Output Total 400 950 600 Balance -280 250 -300 Lab Results - Last 24 hrs: Laboratory Results - last 24 hr 07/03/17 07/04/17 07/04/17 Range/Units 01:55 11:19 16:59 WBC (4.0-10.0) x10^3/uL RBC (4.00-5.50) x10^6/uL Hgb (12.0-16.0) g/dL Hct (33.0-47.0) % MCV (78.0-93.0) fL MCH (26.0-32.0) pg MCHC (32.0-36.0) g/dL RDW Coeff of Ananda (10.0-15.0) % Plt Count (130-400) x10^3/uL Neut % (Auto) (50.0-80.0) % Lymph % (Auto) (25.0-50.0) % [place] % (Auto) (2.0-11.0) % Eos % (Auto) (0.0-4.0) % Baso % (Auto) (0.2-1.2) % Sodium (136-145) mmol/L Potassium (3.5-5.1) mmol/L Chloride (98-107) mmol/L Carbon Dioxide (21-32) mmol/L BUN (7-18) mg/dL Creatinine (0.55-1.02) mg/dL Est Cr Clr Drug Dosing mL/min Estimated GFR (MDRD) Glucose (74-106) mg/dL POC Glucose 231 H 269 H (74-106) mg/dL Calcium (8.5-10.1) mg/dL Urine Creatinine 106 mg/dL Ur Microalbumin mg/dl 3.0 mg/dL 07/04/17 07/05/17 07/05/17 Range/Units 19:52 06:16 06:28 WBC 3.2 L (4.0-10.0) x10^3/uL RBC 4.64 (4.00-5.50) x10^6/uL Hgb 13.6 (12.0-16.0) g/dL Hct 41.8 (33.0-47.0) % MCV 90.1 (78.0-93.0) fL MCH 29.3 (26.0-32.0) pg MCHC 32.5 (32.0-36.0) g/dL RDW Coeff of Ananda 14.6 (10.0-15.0) % Plt Count 65 L (130-400) x10^3/uL Neut % (Auto) 40.5 L (50.0-80.0) % Lymph % (Auto) 43.5 (25.0-50.0) % [place] % (Auto) 10.7 (2.0-11.0) % Eos % (Auto) 4.7 H (0.0-4.0) % Baso % (Auto) 0.6 (0.2-1.2) % Sodium (136-145) mmol/L Potassium (3.5-5.1) mmol/L Chloride (98-107) mmol/L Carbon Dioxide (21-32) mmol/L BUN (7-18) mg/dL Creatinine (0.55-1.02) mg/dL Est Cr Clr Drug Dosing mL/min Estimated GFR (MDRD) Glucose (74-106) mg/dL POC Glucose 307 H 98 (74-106) mg/dL Calcium (8.5-10.1) mg/dL Urine Creatinine mg/dL Ur Microalbumin mg/dl mg/dL 07/05/17 Range/Units 06:28 WBC (4.0-10.0) x10^3/uL RBC (4.00-5.50) x10^6/uL Hgb (12.0-16.0) g/dL Hct (33.0-47.0) % MCV (78.0-93.0) fL MCH (26.0-32.0) pg MCHC (32.0-36.0) g/dL RDW Coeff of Ananda (10.0-15.0) % Plt Count (130-400) x10^3/uL Neut % (Auto) (50.0-80.0) % Lymph % (Auto) (25.0-50.0) % [place] % (Auto) (2.0-11.0) % Eos % (Auto) (0.0-4.0) % Baso % (Auto) (0.2-1.2) % Sodium 145 (136-145) mmol/L Potassium 3.7 (3.5-5.1) mmol/L Chloride 109 H (98-107) mmol/L Carbon Dioxide 30 (21-32) mmol/L BUN 11 (7-18) mg/dL Creatinine 0.9 (0.55-1.02) mg/dL Est Cr Clr Drug Dosing 48.07 mL/min Estimated GFR (MDRD) > 60 Glucose 96 (74-106) mg/dL POC Glucose (74-106) mg/dL Calcium 8.7 (8.5-10.1) mg/dL Urine Creatinine mg/dL Ur Microalbumin mg/dl mg/dL Med Orders - Current: Current Medications Acetaminophen (Tylenol Extra Strength) 500 mg PO Q8HR PRN PRN Reason: Pain Albuterol (Proventil Neb Soln) 2.5 mg NEB Q4HRRT PRN PRN Reason: sob Last Admin: 07/05/17 07:07 Dose: 2.5 mg Artificial Tears (Tears Naturale Free) 0 each EYEBOTH BEDTIME [facility] Last Admin: 07/04/17 19:53 Dose: 1 each Aspirin (Ecotrin) 325 mg PO DAILY@12 [facility] Last Admin: 07/04/17 12:27 Dose: 325 mg Benzocaine/Menthol (Cepacol Sore Throat) 1 lozenge MUCMEM TID PRN PRN Reason: Cough Last Admin: 07/05/17 07:34 Dose: 1 lozenge Budesonide (Pulmicort) 0.5 mg NEB BIDRT [facility] Last Admin: 07/05/17 07:07 Dose: 0.5 mg Bupropion HCl (Wellbutrin Xl) 150 mg PO DAILY [facility] Last Admin: 07/05/17 07:34 Dose: 150 mg Capsaicin (Zostrix 0.025% Crm) 0 gm TOP Q6HR PRN PRN Reason: Pain Citalopram Hydrobromide (Celexa) 40 mg PO DAILY [facility] Last Admin: 07/05/17 07:34 Dose: 40 mg Fluticasone Propionate (Flonase) 0 gm NASBOTH DAILY [facility] Last Admin: 07/05/17 07:36 Dose: 1 spray Gabapentin (Neurontin) 100 mg PO BID [facility] Last Admin: 07/05/17 07:34 Dose: 100 mg Guaifenesin (Robitussin) 400 mg PO Q4HR PRN PRN Reason: Other Last Admin: 07/03/17 20:48 Dose: 400 mg Insulin Aspart (Novolog) 0 unit SUBCUT TIDMEALS [facility] PRN Reason: Protocol Last Admin: 07/05/17 07:54 Dose: Not Given Insulin Detemir (Levemir) 0 unit SUBCUT BEDTIME [facility] Last Admin: 07/04/17 19:52 Dose: 50 units Levothyroxine Sodium (Levothyroxine) 25 mcg PO ACBREAKFAST [facility] Last Admin: 07/05/17 06:17 Dose: 25 mcg Loratadine (Claritin) 10 mg PO DAILY [facility] Last Admin: 07/05/17 07:34 Dose: 10 mg Losartan Potassium (Cozaar) 100 mg PO DAILY [facility] Last Admin: 07/05/17 07:34 Dose: 100 mg Refresh Liquigel (Own Med) 0 drop EYEBOTH QID [facility] Last Admin: 07/05/17 07:36 Dose: 1 drop Methylphenidate 20 (Mg Own Med) 0 mg PO BID@0800,1500 [facility] Stop: 07/12/17 15:01 Last Admin: 07/05/17 07:35 Dose: 20 mg Ondansetron HCl (Zofran Odt) 4 mg PO Q6H PRN PRN Reason: nausea, able to take PO Oxybutynin Chloride (Oxybutynin Er) 10 mg PO DAILY@12 [facility] Last Admin: 07/04/17 12:26 Dose: 10 mg Oxycodone/Acetaminophen (Percocet 325-5 Mg) 2 tab PO Q4H PRN PRN Reason: Pain Last Admin: 07/05/17 07:34 Dose: 2 tab Pantoprazole Sodium (Protonix) 40 mg PO DAILY [facility] Last Admin: 07/05/17 07:34 Dose: 40 mg Simvastatin (Zocor) 20 mg PO BEDTIME [facility] Last Admin: 07/04/17 19:53 Dose: 20 mg Sodium Chloride (Saline Flush) 10 ml FLUSH ASDIRECTED PRN PRN Reason: Keep Vein Open Discontinued Medications Aspirin (Ecotrin) 325 mg PO DAILY [facility] Last Admin: 07/03/17 07:45 Dose: 325 mg Bupropion HCl (Wellbutrin) 150 mg PO DAILY [facility] Last Admin: 07/03/17 07:45 Dose: 150 mg Diphenhydramine HCl (Benadryl) 50 mg IVPUSH ONETIME ONE Stop: 07/03/17 20:16 Last Admin: 07/03/17 20:48 Dose: 50 mg Fluticasone Propionate (Flonase) 0.0001 gm NASBOTH DAILY [facility] Last Admin: 07/04/17 08:04 Dose: 1 spray Sodium Chloride (Normal Saline) 1,000 mls @ 50 mls/hr IV ASDIRECTED [facility] Last Admin: 07/02/17 22:08 Dose: 50 mls/hr Insulin Aspart (Novolog) 5 unit SUBCUT TIDMEALS [facility] Insulin Aspart (Novolog) 5 unit SUBCUT ONETIME ONE Stop: 07/02/17 18:39 Last Admin: 07/02/17 19:06 Dose: 5 units Insulin Aspart (Novolog) 0 unit SUBCUT TIDAC [facility] PRN Reason: Protocol Last Admin: 07/04/17 11:22 Dose: 2 units Insulin Human Regular (Humulin R) 0 unit SUBCUT TIDAC [facility] PRN Reason: Protocol Last Admin: 07/03/17 11:12 Dose: Not Given Insulin Human Regular (Humulin R) 0 unit SUBCUT TIDAC [facility] PRN Reason: Protocol Last Admin: 07/04/17 12:31 Dose: Not Given Non-Formulary Medication (Methylphenidate Hcl [Ritalin]) 20 mg PO BID [facility] Last Admin: 07/03/17 10:35 Dose: Not Given Non-Formulary Medication (Propylene Glycol/Peg 400 [Systane Liquid Gel Eye Drops ]) 1 drop EYEBOTH QID [facility] Last Admin: 07/03/17 08:16 Dose: Not Given Oxybutynin Chloride (Oxybutynin Er) 10 mg PO DAILY [facility] Last Admin: 07/03/17 07:44 Dose: 10 mg Potassium Chloride (Klor-Con M20) 40 meq PO ONETIME ONE Stop: 07/04/17 10:25 Last Admin: 07/04/17 11:18 Dose: 40 meq Sitagliptin Phosphate (Januvia) 100 mg PO DAILY [facility] Last Admin: 07/03/17 07:45 Dose: 100 mg Sitagliptin Phosphate (Januvia) 100 mg PO DAILY@12 [facility] Last Admin: 07/04/17 12:32 Dose: Not Given - Exam General: Reports: Alert, Cooperative, No Acute Distress HEENT: Reports: Other (oral cavity appears normal; no swelling; some dryness; teeth intact; airway open and clear; no ulcerations) Lungs: Reports: Clear to Auscultation, Normal Respiratory Effort Cardiovascular: Reports: Regular Rate, Regular Rhythm GI/Abdominal Exam: Normal Bowel Sounds, Soft, Non-Tender Extremities: Normal Inspection Skin: Reports: Warm, Dry, Intact Neurological: Reports: No New Focal Deficit Psy/Mental Status: Reports: Alert *Q Meaningful Use (DIS) - VTE *Q VTE Criteria *Q: VTE Mechanical Contraindications *Q: At Risk for Falls - Stroke *Q Stroke Criteria *Q: - AMI *Q AMI Criteria *Q:
[2017-07-05 10:12] VITALS: BP 93/76
[2017-07-05] MEDS: Aspirin 325 MG Tab.EC PO SCH (12:16)
[2017-07-05] MEDS: Oxybutynin 5 MG Tab.ER PO SCH (12:16)
== END 2017-07-05 13:00 | disposition home or self-care (01) | DRG 639 ==
LOC: VM.ED 17:02 → VM.MS 19:22
PROVIDERS: ADMIT Nurse Practitioner Family; ATTEND Nurse Practitioner Family
DX: E11.65 Type 2 diabetes mellitus with hyperglycemia (principal); R53.1 Weakness; I10 Essential (primary) hypertension; J45.909 Unspecified asthma, uncomplicated; G47.30 Sleep apnea, unspecified; K21.9 Gastro-esophageal reflux disease without esophagitis; H91.90 Unspecified hearing loss, unspecified ear; E11.21 Type 2 diabetes mellitus with diabetic nephropathy; Z79.4 Long term (current) use of insulin; Z88.8 Allergy status to other drugs, medicaments and biological substances; L40.50 Arthropathic psoriasis, unspecified; N32.81 Overactive bladder; F32.9 Major depressive disorder, single episode, unspecified; D69.6 Thrombocytopenia, unspecified; F01.50 Vascular dementia, unspecified severity, without behavioral disturbance, psychotic disturbance, mood disturbance, and anxiety; E11.69 Type 2 diabetes mellitus with other specified complication; E03.9 Hypothyroidism, unspecified; Z88.2 Allergy status to sulfonamides; Z79.82 Long term (current) use of aspirin; Z79.899 Other long term (current) drug therapy
CPT/HCPCS: 36415; 36600; 71045; 80048; 80053; 81001; 82043; 82570; 82803; 82962; 83036; 83605; 83735; 83880; 84443; 85025; 93005; 94640; 97116-GP; 97161-GP; 97165-GO; 99285; A9270-GY; G0515-GO; J1200; J1815; J1815-GY; J7030; J7620-GY

== ENCOUNTER 2020-04-08 11:06 | Inpatient (IN) | payer MEDICARE ==
[2020-04-08 11:51] LABS: CHLORIDE,CL 107 mmol/L (98-107); SODIUM,NA 145 mmol/L (136-145)
[2020-04-08 11:52] LABS: ANION GAP 14.1 mmol/L (10-20)
--- NOTE | 2020-04-08 11:57 | EDM.PDOC ---
ED HPI GENERAL MEDICAL PROBLEM - General Chief Complaint: Respiratory Problem Stated Complaint: ER Time Seen by Provider: 04/08/20 11:10 Source of Information: Reports: Patient, RN, RN Notes Reviewed History Limitations: Reports: No Limitations - History of Present Illness INITIAL COMMENTS - FREE TEXT/NARRATIVE: This 74 year old female presents to ER with c/o increasing shortness of breath. Patient states she has a history of CHF. States over the past 2 days her breathing has increasingly gotten labored and worse. Patient admits to a sternal chest pressure with cough and deep breathing. Admits to chills, denies fever. Denies N/V/D. PT states she has had increased swelling to her feet and lower extremities. Patient states she has not been tested for COVID. Patient admits to hx of diabetes on insulin. Oxygen saturation mid 90's on RA. Patient does not use oxygen at home. Onset: Gradual Onset Date: 04/06/20 Duration: Constant, Getting Worse Location: Reports: Chest Quality: Reports: Pressure Severity: Moderate Improves with: Reports: None Worsens with: Reports: Other (cough) Associated Symptoms: Reports: Chest Pain, Cough, Diaphoresis, Fever/Chills, Shortness of Breath - Related Data Allergies Allergy/AdvReac Type Severity Reaction Status Date / Time Sulfa (Sulfonamide Allergy Severe Anaphylactic Verified 04/08/20 12:48 Antibiotics) Shock metformin AdvReac Intermediate Vomiting Verified 04/08/20 11:25 Home Meds: Home Meds Albuterol [Proair HFA] 2 puff INH Q4HR PRN 11/06/14 [History] Aspirin 325 mg PO DAILY@119911/06/14 [History] Escitalopram Oxalate [Lexapro] 30 mg PO DAILY@89911/06/14 [History] Fexofenadine [Alem] 180 mg PO DAILY@89911/06/14 [History] Fluticasone Propionate [Flonase] 50 mcg JOSÉ MIGUEL DAILY@89911/06/14 [History] Lutein/Minerals/Vit A,C & E [I-Twyla] 1 tab PO DAILY@119911/06/14 [History] Multivitamins w-Iron/Ca/FA/Min [Thera M Plus] 1 tab PO DAILY@119911/06/14 [History] [place]-3 Fatty Acids [[place]-3] 1,000 mg PO BEDTIME 11/06/14 [History] Oxybutynin Chloride [Ditropan Xl] 10 mg PO DAILY@1200 11/06/14 [History] Simvastatin 20 mg PO DAILY@191411/06/14 [History] Acetaminophen [Tylenol Extra Strength] 500 - 1,000 mg PO Q8HR PRN MDD 4000 MG 07/02/17 [History] Calcium Carbonate/Vitamin D3 [Liquid Calcium 600-Vit D3 Sfgl] 1 tab PO BID@1200,191407/02/17 [History] Capsaicin [Zostrix 0.025% Crm] 1 applic TOP Q6HR PRN 07/02/17 [History] Carboxymethylcellulose Sodium [Refresh Liquigel 1%] 1 drop EYEBOTH DAILY@191407/02/17 [History] Clotrimazole/Betamethasone Dip [Lotrisone Cream] 1 applic TP BID PRN 07/02/17 [History] Levothyroxine 25 mcg PO ACBREAKFAST 07/02/17 [History] Methylphenidate HCl [Ritalin] 20 mg PO BID@0900,1500 07/02/17 [History] Pantoprazole [ProTONIX] 40 mg PO DAILY@0830 07/02/17 [History] Propylene Glycol/Peg 400 [Systane Liquid Gel Eye Drops] 1 drop EYEBOTH QID 07/02/17 [History] Telmisartan [Micardis] 80 mg PO DAILY@0907/02/17 [History] guaiFENesin [Robitussin] 20 ml PO Q4HR PRN 07/02/17 [History] buPROPion [buPROPion XL] 150 mg PO DAILY@0907/03/17 [History] Insulin Glargine,Hum.Rec.Anlog [Basaglar Kwikpen U-100] 50 unit SQ DAILY@191407/04/17 [History] Budesonide [Pulmicort Flexhaler] 2 puff IH BID #1 inhaler 07/05/17 [Rx] Gabapentin [Neurontin] 1 cap PO BID 30 Days #60 capsule 07/05/17 [Rx] Insulin Aspart [Novolog] See Protocol SQ TIDMEALS #1 pen 07/05/17 [Rx] Past Medical History HEENT History: Reports: Hard of Hearing Cardiovascular History: Reports: Hypertension Respiratory History: Reports: Asthma, Sleep Apnea Gastrointestinal History: Reports: GERD Other Genitourinary History: Diabetic nephropathy. Overactive bladder Other Musculoskeletal History: Psoriatic arthritis. Clavicle FX Neurological History: Reports: Other (See Below) Other Neuro History: vascular dementia Psychiatric History: Reports: Depression Endocrine/Metabolic History: Reports: Diabetes, Type II Other Hematologic History: Thrombocytopenia - Past Surgical History GI Surgical History: Reports: Cholecystectomy, Colonoscopy Other Female Surgeries/Procedures: Cystocele. prolapsed uterus Musculoskeletal Surgical History: Reports: Shoulder Surgery Other Musculoskeletal Surgeries/Procedures:: Diabetic neuropathy. Toe ORIF Social & Family History - Family History Family Medical History: No Pertinent Family History - Tobacco Use Tobacco Use Status *Q: Never Tobacco User - Caffeine Use Caffeine Use: Reports: Coffee, Soda - Living Situation & Occupation Living situation: Reports: , with Spouse, Assisted Living Occupation: Retired ED ROS GENERAL - Review of Systems Review Of Systems: Comprehensive ROS is negative, except as noted in HPI. ED EXAM, GENERAL - Physical Exam Exam: See Below Exam Limited By: Respiratory Distress General Appearance: Alert, WD/WN, Mild Distress Eye Exam: Bilateral Eye: EOMI, Normal Inspection Ears: Normal External Exam, Hearing Grossly Normal Nose: Normal Inspection Throat/Mouth: Normal Inspection, Normal Lips, Normal Teeth, Normal Gums, Normal Oropharynx, Normal Voice, No Airway Compromise Head: Facial Tenderness (Facial ecchymosis on left cheek from fall x2 weeks ago) Neck: Normal Inspection, Supple, Non-Tender, Full Range of Motion Respiratory/Chest: Decreased Breath Sounds, Crackles (throughout), Accessory Muscle Use Cardiovascular: Normal Peripheral Pulses, Tachycardia, Irregularly Irregular, Other (pedal edema +2-3) Peripheral Pulses: 1+: Dorsalis Pedis (L), Dorsalis Pedis (R), 2+: Radial (L), Radial (R) GI/Abdominal: Normal Bowel Sounds, Soft, Non-Tender (Female) Exam: Deferred Rectal (Female) Exam: Deferred Back Exam: Normal Inspection, Full Range of Motion, NT Extremities: Normal Inspection, Normal Range of Motion, Non-Tender, Normal Capillary Refill, No Pedal Edema Neurological: Alert, Oriented, CN II-XII Intact, Normal Cognition, Normal Gait, Normal Reflexes, No Motor/Sensory Deficits Psychiatric: Normal Affect, Normal Mood Skin Exam: Intact, Normal Color, No Rash, Cool, Diaphoretic, Ecchymosis (left cheek from fall x 2 weeks ago) Lymphatic: No Adenopathy Course - Vital Signs Last Recorded V/S: Last Vital Signs Temp 99.5 F 04/08/20 11:06 Pulse 75 04/08/20 11:06 Resp 32 H 04/08/20 11:06 BP 132/91 H 04/08/20 11:06 Pulse Ox 93 L 04/08/20 11:06 - Orders/Labs/Meds Orders: Active Orders 24 hr Category Date Time Status EKG Documentation Completion [RC] STAT Care 04/08/20 11:16 Active CULTURE BLOOD [BC] Stat Lab 04/08/20 11:42 Received CULTURE BLOOD [BC] Stat Lab 04/08/20 11:46 Received URINALYSIS W/MICROSCOPIC [UA W/MICROSCOPIC] [URIN] Stat Lab 04/08/20 11:17 Ordered Blood Culture x2 Reflex Set [OM.PC] Stat Oth 04/08/20 11:16 Ordered Labs: Laboratory Tests 04/08/20 04/08/20 04/08/20 Range/Units 11:15 11:15 11:15 WBC 7.1 (4.0-10.0) x10^3/uL RBC 4.67 (4.00-5.50) x10^6/uL Hgb 12.2 (12.0-16.0) g/dL Hct 39.6 (33.0-47.0) % MCV 84.8 D (78.0-93.0) fL MCH 26.1 (26.0-32.0) pg MCHC 30.8 L (32.0-36.0) g/dL RDW Coeff of Ananda 17.3 H (10.0-15.0) % Plt Count 237 D (130-400) x10^3/uL Neut % (Auto) 75.0 (50.0-80.0) % Lymph % (Auto) 16.5 L (25.0-50.0) % [place] % (Auto) 7.2 (2.0-11.0) % Eos % (Auto) 1.0 (0.0-4.0) % Baso % (Auto) 0.3 (0.2-1.2) % PT 24.2 H (9.5-12.3) SEC INR 2.3 (2.0-3.5) D-Dimer, Quantitative (<=0.58) mg/LFEU Sodium 145 (136-145) mmol/L Potassium 4.1 (3.5-5.1) mmol/L Chloride 107 (98-107) mmol/L Carbon Dioxide 28 (21-32) mmol/L Anion Gap 14.1 (10-20) mmol/L BUN 18 (7-18) mg/dL Creatinine 1.2 H (0.55-1.02) mg/dL Est Cr Clr Drug Dosing TNP Estimated GFR (MDRD) 44 Glucose 107 H (74-106) mg/dL Lactic Acid (0.4-2.0) mmol/L Calcium 9.0 (8.5-10.1) mg/dL Corrected Calcium 9.56 (8.5-10.1) mg/dL Total Bilirubin 0.6 (0.2-1.0) mg/dL AST 24 (15-37) U/L ALT 28 (14-59) U/L Alkaline Phosphatase 71 (46-116) U/L Lactate Dehydrogenase 271 H (81-234) U/L Troponin I 0.021 (<=0.056) ng/mL C-Reactive Protein 1.1 H (<=0.9) mg/dL NT-Pro-B Natriuret Pep 5629 H (<=450) pg/mL Total Protein 6.8 (6.4-8.2) g/dL Albumin 3.3 L (3.4-5.0) g/dL Globulin 3.5 Albumin/Globulin Ratio 0.94 SARS CoV-2 RNA Rapid JUAN (NEGATIVE) 04/08/20 04/08/20 04/08/20 Range/Units 11:15 11:15 11:15 WBC (4.0-10.0) x10^3/uL RBC (4.00-5.50) x10^6/uL Hgb (12.0-16.0) g/dL Hct (33.0-47.0) % MCV (78.0-93.0) fL MCH (26.0-32.0) pg MCHC (32.0-36.0) g/dL RDW Coeff of Ananda (10.0-15.0) % Plt Count (130-400) x10^3/uL Neut % (Auto) (50.0-80.0) % Lymph % (Auto) (25.0-50.0) % [place] % (Auto) (2.0-11.0) % Eos % (Auto) (0.0-4.0) % Baso % (Auto) (0.2-1.2) % PT (9.5-12.3) SEC INR (2.0-3.5) D-Dimer, Quantitative 0.49 (<=0.58) mg/LFEU Sodium (136-145) mmol/L Potassium (3.5-5.1) mmol/L Chloride (98-107) mmol/L Carbon Dioxide (21-32) mmol/L Anion Gap (10-20) mmol/L BUN (7-18) mg/dL Creatinine (0.55-1.02) mg/dL Est Cr Clr Drug Dosing Estimated GFR (MDRD) Glucose (74-106) mg/dL Lactic Acid 1.6 (0.4-2.0) mmol/L Calcium (8.5-10.1) mg/dL Corrected Calcium (8.5-10.1) mg/dL Total Bilirubin (0.2-1.0) mg/dL AST (15-37) U/L ALT (14-59) U/L Alkaline Phosphatase (46-116) U/L Lactate Dehydrogenase (81-234) U/L Troponin I (<=0.056) ng/mL C-Reactive Protein (<=0.9) mg/dL NT-Pro-B Natriuret Pep (<=450) pg/mL Total Protein (6.4-8.2) g/dL Albumin (3.4-5.0) g/dL Globulin Albumin/Globulin Ratio SARS CoV-2 RNA Rapid JUAN Negative (NEGATIVE) Meds: Medications Discontinued Medications Generic Name Dose Route Start Last Admin Trade Name Freq PRN Reason Stop Dose Admin Furosemide 80 mg 04/09/20 08:00 Lasix IVPUSH DAILY SUNNY Furosemide 80 mg 04/09/20 12:34 Lasix IVPUSH 04/09/20 12:35 DAILY ONE Furosemide 80 mg 04/08/20 12:39 04/08/20 12:40 Lasix IVPUSH 04/08/20 12:40 80 mg DAILY STA Administration - Radiology Interpretation Free Text/Narrative:: Chest xray: Cardiomediastinal silhouette is similar to prior examination 2018. Partial obscuration of the right hemidiaphragm suggesting parenchymal opacification of the right lung base. Findings are nonspecific and possible atelectasis, pneumonia, and/or aspiration. Left lung is clear. If findings are clinically equivocal, noncontrast chest CT is recommended. See rad report - Re-Assessments/Exams Free Text/Narrative Re-Assessment/Exam: 04/08/20 12:57 Discussed patient case with SIRISHA Aguirre who agreed to accept the patient for acute admission. Departure - Departure Time of Disposition: 13:01 Disposition: Admitted As Inpatient 64 Condition: Fair Clinical Impression: Congestive heart failure Qualifiers: Heart failure type: unspecified Heart failure chronicity: acute on chronic Qualified Code(s): I50.9 - Heart failure, unspecified Diabetes mellitus Qualifiers: Diabetes mellitus type: type 2 Diabetes mellitus [facility] insulin use: with [facility] use Diabetes mellitus complication status: without complication Qualified Code(s): E11.9 - Type 2 diabetes mellitus without complications; Z79.4 - nursing home (current) use of insulin - Discharge Information *PRESCRIPTION DRUG MONITORING PROGRAM REVIEWED*: No *COPY OF PRESCRIPTION DRUG MONITORING REPORT IN PATIENT BETH: No Sepsis Event Note (ED) - Evaluation Sepsis Screening Result: No Definite Risk - Focused Exam Vital Signs: Vital Signs Temp Pulse Resp BP Pulse Ox 04/08/20 11:06 99.5 F 75 32 H 132/91 H 93 L - My Orders Last 24 Hours: My Active Orders 04/08/20 11:16 EKG Documentation Completion [RC] STAT Blood Culture x2 Reflex Set [OM.PC] Stat 04/08/20 11:17 URINALYSIS W/MICROSCOPIC [UA W/MICROSCOPIC] [URIN] Stat 04/08/20 11:42 CULTURE BLOOD [BC] Stat 04/08/20 11:46 CULTURE BLOOD [BC] Stat - Assessment/Plan Last 24 Hours: My Active Orders 04/08/20 11:16 EKG Documentation Completion [RC] STAT Blood Culture x2 Reflex Set [OM.PC] Stat 04/08/20 11:17 URINALYSIS W/MICROSCOPIC [UA W/MICROSCOPIC] [URIN] Stat 04/08/20 11:42 CULTURE BLOOD [BC] Stat 04/08/20 11:46 CULTURE BLOOD [BC] Stat
--- NOTE | 2020-04-08 12:19 | CR ---
[id number] RAD/RAD Chest PA or AP 1V EXAM: RAD Chest PA or AP 1V INDICATION: CHEST PAIN. COMPARISON: June 2017. DISCUSSION: Cardiomediastinal silhouette is similar to prior examination 2017. Partial obscuration of the right hemidiaphragm suggesting parenchymal opacification the right lung base. Findings are nonspecific and possibly atelectasis, pneumonia, and/or aspiration. Left lung is clear. If findings are clinically equivocal, noncontrast chest CT is recommended. IMPRESSION: As above. Jasen Masterson MD 04/08/20 [id number] Thank you for allowing us to participate in the care of your patient.
[2020-04-08] MEDS ORDERED: Furosemide 40 MG/4 ML VIAL IVPUSH STA (12:39)
[2020-04-08] MEDS ORDERED: Ondansetron 4 MG Tab.DIS PO PRN (13:08)
--- NOTE | 2020-04-08 14:14 | CT ---
[id number] CT/CT Chest WO IV EXAM: CT Chest WO IV CLINICAL DATA: CHF, SOB,FATIGUE. COMPARISON: Chest radiograph 04/08/2020. FINDINGS: LUNGS: Small bilateral pleural effusions, right greater than left. Subtle mosaic attenuation of the lungs bilaterally. No confluent airspace consolidation. No pneumothorax. HEART AND GREAT VESSELS: Coronary artery disease. Atherosclerotic calcifications of the aorta and its branches. The heart is enlarged. MEDIASTINUM AND LYMPHATICS: No mediastinal or hilar lymphadenopathy. UPPER ABDOMINAL ORGANS: The gallbladder is surgically absent. BONES: Scattered changes of spondylosis in the spine. No fracture or osseous lesion. IMPRESSION: 1. Small bilateral pleural effusions, right greater than left. Additionally there are subtle mosaic attenuation the lungs bilaterally. This is nonspecific but could be seen with pulmonary edema. Findings are most suggestive of congestive heart failure exacerbation. Andi Kasper DO 04/08/20 [id number] Thank you for allowing us to participate in the care of your patient.
[2020-04-08] MEDS ORDERED: Benzonatate 100 MG Cap PO PRN (16:30)
[2020-04-08] MEDS ORDERED: Albuterol HFA 18 Gm Inhaler INH PRN (16:30)
[2020-04-08] MEDS ORDERED: Albuterol 0.083% 2.5 MG/3 ML Neb Soln NEB PRN (16:30)
[2020-04-08] MEDS ORDERED: oxyCODONE 5 MG Tab PO PRN (16:30)
[2020-04-08] MEDS ORDERED: Acetaminophen 500 MG Tab PO PRN (16:30)
[2020-04-08] MEDS ORDERED: Glucagon,Human Recombinant 1 MG Vial IM PRN (16:39)
[2020-04-08] MEDS ORDERED: Diltiazem 50 MG/10 ML SDV IVPUSH ONE ×2 (18:12→20:45)
[2020-04-08] MEDS: metFORMIN 500 MG Tab PO SCH (18:24)
[2020-04-08] MEDS: Insulin Lispro 100 Units/ML 3 ML Vial SUBCUT SCH (18:25)
[2020-04-08] MEDS: Insulin Regular, Human 100 Units/ML 3 ML Vial SUBCUT SCH (18:29)
[2020-04-08] MEDS ORDERED: [UNRECOGNIZED DRUG - REMARK] SCH (19:30)
[2020-04-08] MEDS ORDERED: Warfarin 2.5 MG Tab PO SCH ×2 (20:00→20:30)
[2020-04-08] MEDS ORDERED: Acetaminophen 650 MG Tab.ER PO SCH (20:00)
[2020-04-08] MEDS ORDERED: Insulin Glarg,Human.Rec.Analog 100 Unit/ML SUBCUT SCH (20:30)
[2020-04-08] MEDS: Gabapentin 100 MG Cap PO SCH (20:50)
[2020-04-08] MEDS: Acetaminophen 325 MG Tab PO SCH (20:50)
[2020-04-08] MEDS: Hypromellose 0.3% Ophth Soln 15 ML Bottle EYEBOTH SCH ×2 (20:53)
[2020-04-09] MEDS: 50% Dextrose in Water 50 ML Syringe IV PRN (03:27)
[2020-04-09] MEDS: Levothyroxine 50 MCG Tab PO SCH (06:40)
[2020-04-09 07:31] LABS: ANION GAP 8.9 mmol/L (10-20)
[2020-04-09] MEDS ORDERED: Furosemide 40 MG/4 ML VIAL IVPUSH SCH (08:00)
[2020-04-09] MEDS ORDERED: Polyethylene Glycol 3350 Powder 17 GM Packet PO SCH (08:00)
[2020-04-09] MEDS ORDERED: Mometasone Furoate Powder 220 MCG/Puff 14 Dose Inhaler INH SCH (08:00)
[2020-04-09] MEDS: Citalopram 10 MG Tab PO SCH (08:58)
[2020-04-09] MEDS: Losartan 50 MG Tab PO SCH (08:59)
[2020-04-09] MEDS: buPROPion 150 MG Tab.ER PO SCH (09:01)
[2020-04-09] MEDS: Furosemide 40 MG/4 ML VIAL IV SCH (09:01)
[2020-04-09] MEDS: Pantoprazole 40 MG Tab.CR PO SCH (09:01)
[2020-04-09] MEDS: Acetaminophen 325 MG Tab PO SCH ×2 (09:01→20:31)
[2020-04-09] MEDS: Diltiazem 240 MG Cap.ER PO SCH (09:02)
[2020-04-09] MEDS: metFORMIN 500 MG Tab PO SCH ×2 (09:02→19:35)
[2020-04-09] MEDS: Gabapentin 100 MG Cap PO SCH ×2 (09:02→20:30)
[2020-04-09] MEDS: Loratadine 10 MG Tab PO SCH (09:03)
[2020-04-09] MEDS: Hypromellose 0.3% Ophth Soln 15 ML Bottle EYEBOTH SCH ×5 (09:05→20:30)
[2020-04-09] MEDS: Insulin Regular, Human 100 Units/ML 3 ML Vial SUBCUT SCH (09:06)
[2020-04-09] MEDS: Insulin Lispro 100 Units/ML 3 ML Vial SUBCUT SCH ×5 (09:09→19:34)
[2020-04-09] MEDS: BUDESONIDE INH SCH ×2 (09:36→21:31)
[2020-04-09] MEDS: Albuterol/Ipratropium 3.0-0.5 MG/3 ML Neb Soln NEB PRN ×2 (09:37→16:03)
[2020-04-09] MEDS: METHYLPHENIDATE 20 MG PO SCH ×2 (12:05→16:02)
[2020-04-09] MEDS: Oxybutynin 5 MG Tab.ER PO SCH (12:08)
[2020-04-09] MEDS: Aspirin 81 MG Tab.EC PO SCH (12:08)
[2020-04-09] MEDS ORDERED: Furosemide 40 MG/4 ML VIAL IVPUSH ONE (12:34)
--- NOTE | 2020-04-09 18:31 | PN ---
Progress Note for FÉLIX DU Date: 04/09/2020 Room #: VM.201 CHIEF COMPLAINT: Shortness of breath. SUBJECTIVE: Hospital day #2 for a 74-year-old patient admitted yesterday for acute on chronic congestive heart failure. The patient states today she is feeling better. She states she feels much short of breath. The patient has not had any problems with urination or bowel movements. Her appetite has been fair. She currently denies any chest pain or palpitations. She has some leg swelling. The patient denies any cough. The patient has not had any headache, dizziness, or lightheadedness. The patient denies any abdominal pain. No nausea, vomiting, or diarrhea. PHYSICAL EXAMINATION: Vital Signs: Temperature 97.5, pulse 118, blood pressure 111/72, respiratory rate 20, oxygen saturation 95% on 2 L. General: The patient is alert. The patient is cooperative. The patient does not appear to be in any acute distress. Skin: Intact, warm, and dry. Respiratory: Bibasilar crackles, otherwise diminished throughout. Cardiovascular: Irregularly irregular rhythm, tachycardic. No murmurs. Abdomen: Soft, nontender. Bowel sounds are active x4. Neurological: The patient is alert. The patient is oriented to person, place, and time. No focal neurological deficits. LABORATORY STUDIES: 1. CBC: White blood cell count 6.2, hemoglobin 11.8, hematocrit 37.9, platelets are 154,000. 2. BMP: Sodium 145, potassium 3.9, chloride 106, CO2 was 34, anion gap is 8.9, BUN is 20, creatinine 1.2, GFR 44, glucose 119, calcium 8.7. 3. BNP 3786. ASSESSMENT: 1. Acute on chronic congestive heart failure. 2. Fluid volume overload. 3. Diabetes mellitus type 2, on long-term insulin. 4. Hypertension secondary to diabetes. 5. Hyperlipidemia secondary to diabetes. 6. Vascular dementia. 7. History of cerebrovascular accident. 8. Major depressive disorder. 9. Overactive bladder. 10.Asthma. 11. Atrial Fibrillation with RVR PLAN: Hospital day #2 for a 74-year-old female patient admitted for the above. We will continue with IV Lasix as the patient seems to be responding well. The patient's weight is down 2 pounds from yesterday. Continue with same diet with 1000 mL fluid restriction. We will continue to monitor cardiac telemetry for rate control. The patient's Cardizem was increased to 240 mg today. Discussed with the patient that she needs to be off oxygen to be discharged home. The patient is a full code. The patient does wish to be transferred to a higher level of care should the need arise. Physical Therapy did work with the patient today, who feels she is doing well. I do anticipate a discharge home over the next 1 to 2 days if the patient continues to progress. This patient was seen and examined by me as an [facility] provider. TB: 04/09/2020 12:38:54 MODL: 04/09/2020 13:34:09 /[id number] MTDD
--- NOTE | 2020-04-09 18:31 | HP ---
CHIEF COMPLAINT: Shortness of breath. HISTORY OF PRESENT ILLNESS: A 74-year-old female patient presented to the emergency room at [facility] today for complaints of increasing shortness of breath. The patient does have a history of CHF. The patient states over the past few days, her breathing increasingly became labored and worse. The patient also has a history of asthma, therefore she has been doing nebulizer thinking that it was her asthma. The patient did not respond to the breathing treatments. The patient did have some chest pressure, especially with cough and deep breathing. The patient has not had any nausea, vomiting, or diarrhea. The patient has not had any headaches, dizziness, or lightheadedness. The patient did have a fall, 02/2020, and was seen in the clinic. The patient was recently tested for COVID-19, which was negative. The patient is not on any supplemental oxygen at home. INTERVAL HISTORY: The patient had originally been seen in the clinic on 02/26/2020 for worsening shortness of breath. The patient was given 40 mg of IM Lasix at that time. The patient returned to the clinic 3 days later for a recheck. During her recheck, the patient states she had felt 90% better. The patient continued to have 1+ edema of both lower extremities. The patient was not continued on Lasix at that time. The patient then presented to the clinic on 04/04/2020 for shortness of breath again. The patient was given 60 mg of IM Lasix. The patient's BNP was 460 at that time. The patient also had an elevated TSH level of 5.46. The patient was then started on daily Lasix last Tuesday. The patient states over the past weekend her shortness of breath continued to get worse. The patient was originally diagnosed with atrial fibrillation, 04/2019. The patient was admitted to in [facility] for treatment of new-onset atrial fib. The patient was started on anticoagulation and cardioverted. The cardioversion was successful for normal sinus rhythm. The patient was to follow up with Cardiology, but has not since her last visit with them, 05/2019. The patient states she really has not had any breathing or cardiac issues since that visit. The patient has remained on Coumadin since 05/2019. The patient has had uncontrolled diabetes despite using metformin and subcu insulin. The patient was recently switched from Zocor to Crestor due to interaction with diltiazem. In the emergency room, the patient was found to be in uncontrolled atrial fibrillation. The patient is currently taking 180 mg of Cardizem daily. The patient was given 80 mg of IV Lasix in the emergency room. The patient was not given any medication for rate control of her atrial fib while in the emergency room. The patient's chest x-ray had a questionable infiltrate versus aspiration of the right lung, therefore a CT scan of the chest without IV contrast was performed. The CT scan did rule out pneumonia, infiltrates, and pneumonitis. The patient's chest x-ray did show cardiac enlargement with possible fluid overload. PAST MEDICAL HISTORY: 1. Diabetes type 2. 2. Vascular dementia. 3. History of cerebrovascular accident. 4. Allergic rhinitis. 5. Asthma, mild intermittent. 6. History of clavicle fracture. 7. Depression. 8. GERD. 9. Hearing loss. 10.Overactive bladder. 11.Psoriatic arthritis. 12.Obstructive sleep apnea. 13.History of thrombocytopenia. PAST SURGICAL HISTORY: 1. Left knee arthroscopy in 1999. 2. Colonoscopy. 3. Laparoscopic cholecystectomy. 4. EGD. 5. Arthroscopic rotator cuff repair, left. 6. Acromioplasty. 7. Total knee arthroplasty, right. FAMILY HISTORY: Noncontributory. SOCIAL HISTORY: The patient does not use alcohol. The patient does not use any illegal drugs. The patient has never been a cigarette smoker. The patient currently lives at the [facility]. The patient is currently and lives with her . ALLERGIES: 1. Sulfa. 2. Metformin, which causes nausea and vomiting. CURRENT MEDICATIONS: 1. MiraLAX 17 g p.o. daily. 2. Basaglar 60 units subcu daily at bedtime. 3. ProAir HFA 2 puffs every 4 hours as needed. 4. Pulmicort 2 puffs twice daily. 5. Gabapentin 1 tablet p.o. daily. 6. Crestor 10 mg 1 tablet p.o. daily. 7. Insulin sliding scale per protocol. 8. Cardizem 180 mg 1 tablet p.o. daily. 9. Wellbutrin 150 mg 1 tablet p.o. daily. 10.Coumadin 5 mg as directed. 11.Levothyroxine 25 mcg 1 tablet p.o. daily. 12.Ritalin 20 mg 1 tablet p.o. twice daily. 13.Oxybutynin 10 mg 1 tablet p.o. daily. 14.Metformin 500 mg 1 tablet p.o. daily. 15.Lexapro 20 mg 1.5 tablets p.o. daily. 16.Micardis 80 mg 1 tablet p.o. daily. 17.Pantoprazole 40 mg 1 tablet p.o. daily. 18.Alem 180 mg 1 tablet p.o. daily. 19.Multivitamins 1 tablet p.o. daily. 20.Calcium carbonate/cholecalciferol 600 mg/200 mg, 1 tablet p.o. twice daily. LABORATORY STUDIES: CBC: White blood cell count 7.1, hemoglobin 12.2, hematocrit 39.6, platelets are 237,000. PT 24.2, INR 2.3. D-dimer 0.49. CMP: Sodium 145, potassium 4.1, chloride 107, CO2 of 28, anion gap 14.1, BUN 18, creatinine 1.2, GFR 44, glucose 107, calcium 9.0, bilirubin 0.6, AST 24, ALT 28, alkaline phosphatase 71, protein 6.8. Lactic acid 1.6. CRP 1.1. LDH 271. ProBNP 5629. TSH 6.60. COVID-19 negative. REVIEW OF SYSTEMS: Constitutional: Negative. Respiratory: Complains of shortness of breath. Denies cough. Complains of fatigue. Cardiovascular: Denies chest pain or palpitation. Complains of leg swelling. Abdomen: Negative. Skin: Negative. Neurological: Negative. PHYSICAL EXAMINATION: Vital Signs: Height 5 feet 4 inches, weight 214.9 pounds, temperature 98, pulse 126, blood pressure 118/91, respiratory rate 20, oxygen saturation 92%. General: The patient is alert. The patient does not appear to be in any acute distress. The patient is cooperative. Respiratory: The patient is tachypneic. The patient has bibasilar crackles, otherwise clear. No wheezing. Cardiovascular: Irregularly irregular rhythm. No murmur. Abdomen: Soft. Nontender. Bowel sounds normoactive x4. Skin: The patient has bruising to the left cheek secondary to Coumadin use, otherwise the skin is intact. Warm and dry. Neurological: The patient is alert. The patient is oriented x3. No focal neurological deficits. ASSESSMENT: 1. Acute on chronic congestive heart failure. 2. Atrial fibrillation with rapid ventricular response. 3. Fluid volume overload. 4. Type 2 diabetes, on insulin manager long term care. 5. Vascular dementia. 6. Diabetic nephropathy. 7. Hypertension secondary to diabetes mellitus. 8. Hyperlipidemia secondary to diabetes. 9. Major depressive disorder. 10.Acquired hypothyroidism. PLAN: A 74-year-old patient with the above history was admitted to the acute care floor at [facility] for acute on chronic congestive heart failure and uncontrolled atrial fibrillation. The patient will be on a fluid restriction. Daily weights. The patient will have a bladder scan. If her residual is greater than 400, Man catheter will be inserted. If the patient has fluid retention, we will give an additional 40 mg of IV Lasix. We will give the patient 25 mg of IV Cardizem for rate control. We will increase the patient's p.o. dose of Cardizem to 240 mg p.o. daily starting tomorrow. We will increase the patient's levothyroxine to 50 mcg. Recheck TSH in 6 weeks. Case management involved for discharge planning. We will ask PT and OT to see the patient. The patient will need an echocardiogram after discharge. The patient will also be referred to CHF Clinic after discharge. We will hold off on any beta-blockers at this point due to asthma. Daily weights. Diabetic diet. The patient does wish to be a full code. The patient does wish to be transferred to a higher level of care should the need arise. We will ask pharmacy to monitor and manage the patient's INR and Coumadin. We will recheck blood work in the morning. Cardiac monitoring due to uncontrolled atrial fib. This patient was seen and examined by me as an provider. TB: 04/08/2020 20:31:58 MODL: 04/08/2020 22:40:58 /[id number] MTDD
[2020-04-09] MEDS ORDERED: Warfarin 5 MG Tab PO SCH ×2 (20:00→20:30)
[2020-04-09] MEDS ORDERED: Insulin Glarg,Human.Rec.Analog 100 Unit/ML SUBCUT SCH (20:30)
[2020-04-10] MEDS: 50% Dextrose in Water 50 ML Syringe IV PRN (00:41)
[2020-04-10] MEDS: Levothyroxine 50 MCG Tab PO SCH (06:58)
[2020-04-10] MEDS ORDERED: Insulin Glarg,Human.Rec.Analog 100 Unit/ML SUBCUT SCH (08:00)
[2020-04-10] MEDS: Furosemide 40 MG/4 ML VIAL IV SCH (08:02)
[2020-04-10] MEDS: Citalopram 10 MG Tab PO SCH (08:04)
[2020-04-10] MEDS: Pantoprazole 40 MG Tab.CR PO SCH (08:04)
[2020-04-10] MEDS: Loratadine 10 MG Tab PO SCH (08:04)
[2020-04-10] MEDS: Diltiazem 240 MG Cap.ER PO SCH (08:04)
[2020-04-10] MEDS: Acetaminophen 325 MG Tab PO SCH (08:04)
[2020-04-10] MEDS: buPROPion 150 MG Tab.ER PO SCH (08:04)
[2020-04-10] MEDS: Losartan 50 MG Tab PO SCH (08:05)
[2020-04-10] MEDS: metFORMIN 500 MG Tab PO SCH (08:05)
[2020-04-10] MEDS: Insulin Lispro 100 Units/ML 3 ML Vial SUBCUT SCH ×4 (08:06→11:33)
[2020-04-10] MEDS: Hypromellose 0.3% Ophth Soln 15 ML Bottle EYEBOTH SCH ×2 (08:06→11:33)
[2020-04-10] MEDS: METHYLPHENIDATE 20 MG PO SCH (08:07)
[2020-04-10] MEDS: Gabapentin 100 MG Cap PO SCH (08:08)
[2020-04-10] MEDS: BUDESONIDE INH SCH (08:08)
[2020-04-10] MEDS: Albuterol/Ipratropium 3.0-0.5 MG/3 ML Neb Soln NEB PRN (08:43)
--- NOTE | 2020-04-10 09:29 | CR ---
[id number] RAD/RAD Chest PA And Lateral EXAM: RAD Chest PA And Lateral INDICATION: SHORTNESS OF BREATH, CHF. COMPARISON: April 08, 2020. DISCUSSION: Cardiomediastinal silhouette is stable in size and contour. No infiltrate, pneumothorax, or edema. Pulmonary hyperinflation. Bibasilar subsegmental atelectasis and/or scarring. Central pulmonary vascular congestion. Trace bilateral pleural effusions. IMPRESSION: Central pulmonary vascular congestion. Andi Kasper DO 04/10/20 0928 Thank you for allowing us to participate in the care of your patient.
--- NOTE | 2020-04-10 10:20 | PN ---
Progress Note for FÉLIX DU Date: 04/10/2020 Room #: VM.201 CHIEF COMPLAINT: Shortness of breath. SUBJECTIVE: A 74-year-old female patient who was admitted to the acute care floor at [facility] for acute on chronic congestive heart failure, uncontrolled atrial fibrillation. The patient states this morning she is feeling much more fatigued. She states she is feeling a little bit more short of breath. The patient has required oxygen. The patient is denying any chest pain or palpitations. The patient's pedal edema has much improved. The patient denies any cough. The patient has not had any headache, dizziness, or lightheadedness. The patient states her appetite has decreased; however, she is eating due to her diabetes. She has not had any nausea or vomiting. PHYSICAL EXAMINATION: Vital Signs: Blood pressure 143/84, temperature 97.8, heart rate is 120, respiratory rate 20, and oxygen saturation 95% on 1.5 L. Skin: Intact, warm, and dry. Respiratory: Bibasilar crackles, otherwise diminished throughout. Cardiovascular: Irregularly regular rhythm, tachycardic. No murmurs. Gastrointestinal: Abdomen is soft, nontender. Bowel sounds are normoactive x4. Neurological: No focal neurological deficits. The patient is alert. The patient is cooperative. The patient is alert and oriented x3. LABORATORY STUDIES: PT 23.5, INR 2.2. BMP: Sodium 144, potassium 4.0, chloride 106, CO2 of 33, anion gap 9.0, BUN 20, creatinine 1.2, GFR 44, glucose 123, calcium 8.6. Magnesium 1.9. BNP 3397. ASSESSMENT: 1. Acute on chronic congestive heart failure. 2. Atrial fibrillation with rapid ventricular rate. 3. Fluid volume overload. 4. Type 2 diabetes, on insulin long-term. 5. Vascular dementia. 6. Diabetic nephropathy. 7. Hypertension secondary to diabetes. 8. Hyperlipidemia secondary to diabetes. 9. Major depressive disorder. 10.Acquired hypothyroidism. PLAN: Hospital day #3 for a 74-year-old female patient admitted with the above diagnoses. The patient will continue on fluid restriction of 1000 mL per day. The patient's weight appears to be up about 5 pounds since yesterday. We will have this rechecked. Continue with IV Lasix daily. The patient did have her Cardizem increased yesterday to 240 mg. We will recheck x-ray today. BNP is unchanged from previous day. Pharmacy to dose and monitor INR. We will recheck blood work tomorrow. We will contact [facility] for further management. Continue cardiac monitoring for the uncontrolled atrial fibrillation. This patient was seen and examined by me as an [facility] provider. TB: 04/10/2020 09:20:54 MODL: 04/10/2020 10:09:02 /[id number]
[2020-04-10] MEDS ORDERED: Furosemide 40 MG/4 ML VIAL IV STA (11:33)
[2020-04-10] MEDS: Oxybutynin 5 MG Tab.ER PO SCH (11:33)
[2020-04-10] MEDS: Aspirin 81 MG Tab.EC PO SCH (11:33)
[2020-04-10] MEDS ORDERED: Sodium Chloride 0.9% 10 ML Syringe FLUSH PRN (11:41)
[2020-04-10 14:08] VITALS: BP 92/64; PULSE 125
--- NOTE | 2020-04-10 20:18 | DISCH ---
HISTORY OF PRESENT ILLNESS: A 74-year-old female patient was admitted to the acute care floor at [facility] on 04/08/2020 for acute on chronic CHF exacerbation, fluid volume overload, uncontrolled atrial fibrillation. The patient originally started having breathing issues around the middle of 02/2020. She was seen by her PCP in clinic on 2 separate occasions, both of which she was given IM Lasix. The patient was recently seen by her PCP on 04/04/2020 for worsening shortness of breath. The patient was given 60 mg of IM Lasix and started on daily Lasix. The patient presented to the emergency room at [facility] on 04/08/2020 with worsening shortness of breath. The patient's BMP upon admission was 5629, and chest x-ray showed pulmonary vascular congestion. Therefore, the patient was admitted to acute care for her diuresis and control of her uncontrolled atrial fibrillation. HOSPITAL COURSE: The patient remained hemodynamically stable. Her uncontrolled atrial fibrillation showed heart rates in the 130s, therefore she was given Cardizem IV and her p.o. Cardizem was increased to 240 mg. The patient was given 80 mg of IV Lasix in the emergency room. The patient was also given additional 40 mg of IV Lasix the next morning. The patient diuresed nicely. Her pedal edema had essentially resolved. The patient did have issues with her blood sugars during the night. The patient had 2 separate occasions in which her blood sugar dropped in the 30s. The patient did require quick carbohydrate and IV dextrose. Otherwise, the patient's blood pressure remained stable. The patient was seen by Physical Therapy in which she did very well with ambulation. PT discharged the patient. The patient did have 1 episode of low oxygen saturation in which oxygen was applied. The patient continued to need oxygen upon discharge. The patient's laboratory work remained stable. The patient's discharge chest x-ray showed continued pulmonary vascular congestion. Patient was not started on beta blockers due to her Asthma. CONSULTATIONS: Case management, physical therapy, occupational therapy. DISCHARGE IMAGING STUDIES: Two-view chest x-ray showed central pulmonary vascular congestion with pulmonary and hyperinflation. DISCHARGE LABORATORY WORK: PT 23.5, INR 2.2. BMP: Sodium 144, potassium 4.0, chloride 106, CO2 of 33, anion gap 9.0, BUN 20, creatinine 1.2, GFR 44, glucose 123, calcium 8.6. Magnesium 1.9. BNP 3397. DISCHARGE DIET: Diabetic with 1000 mL fluid restriction per day. DISCHARGE ACTIVITY: As tolerated. REVIEW OF SYSTEMS: Skin: Negative. Neurological: Negative. Cardiovascular: Negative. Respiratory: Intermittent shortness of breath with activity, otherwise no complaints. Extremities: Negative. DISCHARGE PHYSICAL EXAMINATION: Vital Signs: Temperature 98.1, pulse 119, blood pressure 118/71, respiratory rate 16, pulse oximetry 95% on 2 L. Skin: Intact, warm, and dry. Cardiovascular: Irregularly irregular rhythm. No murmur. Tachycardic. Respiratory: Scattered bibasilar crackles, otherwise diminished. Abdomen: Soft, nontender. Bowel sounds are normoactive x4. Neurological: The patient is alert. The patient is oriented to person, place, and time. No focal neurological deficits. DISCHARGE MEDICATIONS: 1. MiraLAX 17 g p.o. daily. 2. Basaglar 50 units subcu daily. 3. ProAir HFA 2 puffs every 4 hours as needed. 4. Pulmicort 2 puffs twice daily. 5. Gabapentin 100 mg 1 capsule p.o. twice daily. 6. Crestor 10 mg 1 tablet p.o. daily. 7. Insulin sliding scale per protocol. 8. Cardizem 240 mg 1 tablet p.o. daily. 9. Wellbutrin 150 mg 1 tablet p.o. daily. 10.Coumadin 5 mg per [facility]. 11.Levothyroxine 50 mcg 1 tablet p.o. daily. 12.Ritalin 20 mg 1 tablet p.o. twice daily. 13.Oxybutynin 10 mg 1 tablet p.o. daily. 14.Metformin 500 mg 1 tablet p.o. daily. 15.Lexapro 20 mg 1.5 tablets p.o. daily. 16.Micardis 80 mg 1 tablet p.o. daily. 17.Pantoprazole 40 mg 1 tablet p.o. daily. 18.Alem 180 mg 1 tablet p.o. daily. 19.Multivitamin 1 tablet p.o. daily. 20.Calcium carbonate/cholecalciferol 600 mg/200 mg, 1 tablet p.o. twice daily. ASSESSMENT: 1. Acute on chronic congestive heart failure. 2. Uncontrolled atrial fibrillation. 3. Fluid volume overload. 4. Type 2 diabetes, on insulin terminal superintendent. 5. Vascular dementia. 6. Diabetic nephropathy. 7. Hypertension secondary to diabetes mellitus. 8. Hyperlipidemia secondary to diabetes. 9. Major depressive disorder. 10.Acquired hypothyroidism. PLAN: A 74-year-old female patient with the above history was admitted to the acute care floor at [facility] on 04/08/2020 for acute on chronic congestive heart failure and uncontrolled atrial fibrillation. The patient will be transferred to [facility] in [place] today for further care. Accepting provider is Dr. Pak, hospitalist. The patient accepted in transfer. All questions answered. The patient will be transferred to [facility]. EMTALA form was completed. The patient was discharged from [facility] in stable condition. The patient agreed with the transfer and wished to proceed. The patient is a full code upon discharge. This patient was seen and examined by me as an [facility] provider. TB: 04/10/2020 18:34:16 MODL: 04/10/2020 20:08:00 /[id number] MTDD
== END 2020-04-10 14:36 | disposition short-term general hospital (02) | DRG 293 ==
LOC: VM.ED 11:06 → VM.MS 12:35
PROVIDERS: ADMIT Nurse Practitioner Family; ATTEND Nurse Practitioner Family
DX: I11.0 Hypertensive heart disease with heart failure (principal); I50.9 Heart failure, unspecified; I48.91 Unspecified atrial fibrillation; F01.50 Vascular dementia, unspecified severity, without behavioral disturbance, psychotic disturbance, mood disturbance, and anxiety; E78.5 Hyperlipidemia, unspecified; J45.909 Unspecified asthma, uncomplicated; G47.30 Sleep apnea, unspecified; E11.21 Type 2 diabetes mellitus with diabetic nephropathy; N32.81 Overactive bladder; F32.9 Major depressive disorder, single episode, unspecified; Z20.828 Contact with and (suspected) exposure to other viral communicable diseases; D69.6 Thrombocytopenia, unspecified; E03.9 Hypothyroidism, unspecified; J45.20 Mild intermittent asthma, uncomplicated; K21.9 Gastro-esophageal reflux disease without esophagitis; Z79.82 Long term (current) use of aspirin; Z79.890 Hormone replacement therapy; H91.90 Unspecified hearing loss, unspecified ear; L40.50 Arthropathic psoriasis, unspecified; G47.33 Obstructive sleep apnea (adult) (pediatric); Z90.49 Acquired absence of other specified parts of digestive tract; Z79.4 Long term (current) use of insulin; Z86.73 Personal history of transient ischemic attack (TIA), and cerebral infarction without residual deficits; Z88.2 Allergy status to sulfonamides; Z88.8 Allergy status to other drugs, medicaments and biological substances; Z79.01 Long term (current) use of anticoagulants; Z79.899 Other long term (current) drug therapy
CPT/HCPCS: 36415; 51798; 71045; 71046; 71250; 80048; 80053; 81001; 82962; 83605; 83615; 83735; 83880; 84145; 84443; 84484; 85025; 85379; 85610; 86140; 87040; 93005; 94640; 97161-GP; 99284; 99285-25; A9270-GY; J1815-GY; J1940; J3490; J7613-GY; J7620-GY; U0002

== ENCOUNTER 2020-04-24 11:51 | Inpatient (IN) | payer MEDICARE ==
[2020-04-24] MEDS ORDERED: Betamethasone Dipropionate/Clotrimazole 0.05-1% Crm 15 GM Tube TOP PRN (12:16)
[2020-04-24] MEDS ORDERED: Capsaicin 0.025% Crm 60 GM Tube TOP PRN (12:16)
[2020-04-24] MEDS ORDERED: Albuterol 0.083% 2.5 MG/3 ML Neb Soln NEB PRN (12:56)
[2020-04-24] MEDS ORDERED: Albuterol HFA 18 Gm Inhaler INH PRN (12:57)
[2020-04-24] MEDS: Insulin Lispro 100 Units/ML 3 ML Vial SUBCUT SCH ×2 (17:33→17:34)
[2020-04-24] MEDS: Hypromellose 0.3% Ophth Soln 15 ML Bottle EYEBOTH SCH ×2 (17:33→20:18)
[2020-04-24] MEDS ORDERED: INSULIN ASPART SQ SCH (20:00)
[2020-04-24] MEDS: Acetaminophen 650 MG Tab.ER PO SCH (20:16)
[2020-04-24] MEDS: Apixaban 2.5 MG Tab PO SCH (20:17)
[2020-04-24] MEDS: Gabapentin 100 MG Cap PO SCH (20:17)
[2020-04-24] MEDS: Ticagrelor 90 MG Tab PO SCH (20:17)
[2020-04-24] MEDS: Calcium Carbonate/Vitamin D3 1250 MG-200 Unit Tab PO SCH (20:17)
[2020-04-24] MEDS: Phosphorus #1 250 MG Tab PO SCH (20:17)
[2020-04-24] MEDS: Insulin Glarg,Human.Rec.Analog 100 Unit/ML SUBCUT SCH (20:19)
[2020-04-24] MEDS: Mineral Oil/Petrolatum Ophth Oint 3.5 GM Tube EYEBOTH SCH (20:19)
[2020-04-24] MEDS: METHYLPHENIDATE 20 MG PO SCH (20:22)
[2020-04-25] MEDS: Pantoprazole 40 MG Tab.CR PO SCH (06:10)
[2020-04-25] MEDS: Levothyroxine 25 MCG Tab PO SCH (06:10)
[2020-04-25] MEDS ORDERED: Hypromellose 0.3% Ophth Soln 15 ML Bottle EYEBOTH SCH (08:00)
[2020-04-25] MEDS: Fish Oil/Omega-3 Fatty Acids 1 Gm Cap PO SCH (08:09)
[2020-04-25] MEDS: Magnesium Chloride 64 MG Tab.ER PO SCH (08:09)
[2020-04-25] MEDS: Metoprolol Succinate 50 MG Tab.ER PO SCH (08:10)
[2020-04-25] MEDS: Calcium Carbonate/Vitamin D3 1250 MG-200 Unit Tab PO SCH ×2 (08:10→20:03)
[2020-04-25] MEDS: buPROPion 150 MG Tab.ER PO SCH (08:10)
[2020-04-25] MEDS: Beta-Carotene (Vitamin A) w/Vitamin C & E plus Minerals Tab PO SCH (08:10)
[2020-04-25] MEDS: metFORMIN 500 MG Tab PO SCH (08:10)
[2020-04-25] MEDS: Acetaminophen 650 MG Tab.ER PO SCH ×2 (08:11→20:02)
[2020-04-25] MEDS: Citalopram 20 MG Tab PO SCH (08:11)
[2020-04-25] MEDS: Loratadine 10 MG Tab PO SCH (08:11)
[2020-04-25] MEDS: Gabapentin 100 MG Cap PO SCH ×3 (08:11→20:03)
[2020-04-25] MEDS: Furosemide 20 MG Tab PO SCH (08:11)
[2020-04-25] MEDS: Phosphorus #1 250 MG Tab PO SCH ×2 (08:11→20:02)
[2020-04-25] MEDS: Multivitamins with Iron/Calcium/Folic Acid/Minerals Tab PO SCH (08:12)
[2020-04-25] MEDS: Losartan 25 MG Tab PO SCH (08:12)
[2020-04-25] MEDS: Oxybutynin 5 MG Tab.ER PO SCH (08:13)
[2020-04-25] MEDS: Apixaban 2.5 MG Tab PO SCH ×2 (08:13→20:03)
[2020-04-25] MEDS: Ticagrelor 90 MG Tab PO SCH ×2 (08:13→20:03)
[2020-04-25] MEDS: atorvaSTATin 40 MG Tab PO SCH (08:13)
[2020-04-25] MEDS: Hypromellose 0.3% Ophth Soln 15 ML Bottle EYEBOTH SCH ×4 (08:14→20:03)
[2020-04-25] MEDS: Mineral Oil/Petrolatum Ophth Oint 3.5 GM Tube EYEBOTH SCH ×2 (08:15→20:05)
[2020-04-25] MEDS: METHYLPHENIDATE 20 MG PO SCH ×2 (08:17→20:08)
[2020-04-25] MEDS: Insulin Lispro 100 Units/ML 3 ML Vial SUBCUT SCH ×6 (08:17→17:30)
[2020-04-25] MEDS: Polyethylene Glycol 3350 Powder 17 GM Packet PO SCH ×2 (08:19→08:29)
--- NOTE | 2020-04-25 11:15 | HP ---
HISTORY OF PRESENT ILLNESS: A 74-year-old female patient is admitted to the swing bed unit at [facility] for weakness and deconditioning. The patient was discharged from [facility] in [place] today after she was admitted for severe congestive heart failure, combined left and right ventricular systolic dysfunction with moderate mitral, tricuspid regurgitation, multivessel coronary artery disease. While the patient was in the hospital, she did have issues with cardiogenic shock. The patient did have an angiogram. The patient had a PCI with artherectomy to the LAD and placement of 2 drug-eluting stents. The patient has continued to have persistent atrial fibrillation. The patient was cardioverted while in the hospital and has currently been normal sinus rhythm since. The patient did have issues with nonsustained ventricular tachycardia and torsades. The patient was started on Eliquis and Brilinta. The patient did not meet criteria for dual placement due to her post PCI. It was thought the patient's nonsustained ventricular tachycardia and torsades was secondary to reperfusion. The patient is not a candidate for a LifeVest as she would not be able to hear the alarms. The patient is currently not on aspirin following the JENNIFER trial recommendations. The patient continued to improve while in the hospital, but with the significant weakness and deconditioning necessitated swing bed admission. PAST MEDICAL HISTORY: 1. Type 2 diabetes. 2. Vascular dementia. 3. History of a CVA. 4. Allergic rhinitis. 5. Asthma, mild intermittent. 6. History of clavicle fracture. 7. Depression. 8. GERD. 9. Hearing loss. 10.Overactive bladder. 11.Psoriatic arthritis. 12.Obstructive sleep apnea, on CPAP. 13.History of thrombocytopenia. 14.Coronary artery disease status post stent placement. 15.Atrial fibrillation. 16.Mild cognitive impairment. 17.History of anticoagulation. 18.Non-STEMI. PAST SURGICAL HISTORY: 1. Left knee arthroscopic in 1999. 2. Colonoscopy. 3. Laparoscopic cholecystectomy. 4. EGD. 5. Arthroscopic rotator cuff repair, left. 6. Acromioplasty. 7. Total knee arthroplasty, right. FAMILY HISTORY: Noncontributory. SOCIAL HISTORY: The patient does not use alcohol. The patient does not use any illegal drugs. The patient has never been a cigarette smoker. The patient currently lives at the [facility]. The patient is currently and lives with her . ALLERGIES: Sulfa. CURRENT MEDICATIONS: 1. Acetaminophen 650 mg 1 tablet p.o. twice daily. 2. Albuterol 2.5 mg via nebulizer every 4 hours as needed. 3. Ventolin HFA 2 puffs every 4 hours as needed. 4. Apixaban 5 mg 1 tablet p.o. twice daily. 5. Atorvastatin 40 mg 1 tablet p.o. daily at bedtime. 6. Beta-carotene 1 tablet p.o. daily. 7. Lotrisone topically twice daily as needed. 8. Pulmicort via inhalation twice daily. 9. Wellbutrin 150 mg 1 tablet p.o. daily. 10.Calcium carbonate/vitamin-D 1 tablet p.o. twice daily. 11.Capsaicin topically every 6 hours as needed. 12.Citalopram 20 mg 1 tablet p.o. daily. 13.[place]-3 fatty fish oil 1 g p.o. daily. 14.Lasix 20 mg 1 tablet p.o. daily. 15.Gabapentin 100 mg 1 tablet p.o. 3 times daily. 16.Gentle Tears 1 drop to both eyes 4 times daily. 17.Basaglar 40 unit subcu daily at bedtime. 18.Insulin regular 3 units subcu 3 times daily with meals. 19.Insulin lispro per sliding scale. 20.Levothyroxine 25 mg 1 tablet p.o. daily. 21.Loratadine 10 mg 1 tablet p.o. daily. 22.Losartan 12.5 mg 1 tablet p.o. daily. 23.Magnesium chloride 128 mg 1 tablet p.o. daily. 24.Metformin 500 mg p.o. daily. 25.Methylphenidate 1 tablet p.o. twice daily. 26.Metoprolol succinate 100 mg 1 tablet p.o. daily. 27.Lacri-Lube 1 drop to both eyes twice daily. 28.Multivitamin with iron 1 tablet p.o. daily. 29.Oxybutynin 10 mg 1 tablet p.o. daily. 30.Pantoprazole 40 mg 1 tablet p.o. daily. 31.K-Phos 250 mg p.o. twice daily. 32.MiraLAX 17 g p.o. every other day. 33.Brilinta 90 mg 1 tablet p.o. twice daily. LABORATORY STUDIES: None. IMAGING STUDIES: None. REVIEW OF SYSTEMS: Constitutional: Negative. Respiratory: Negative. Cardiovascular: Negative. Abdomen: Negative. Skin: Negative. Neurological: Complains of some fatigue and weakness. PHYSICAL EXAMINATION: Vital Signs: Height 5 feet 4 inches, weight 197 pounds. Temperature 97.2, pulse 62, blood pressure 108/64, respiratory rate 19, oxygen saturation 94% on room air. General: The patient is alert. Patient does not appear to be in any acute distress. The patient is cooperative. Respiratory: Lungs are decreased but clear throughout. Cardiovascular: Regular rate and rhythm, no murmur. Abdomen: Soft. Nontender. Bowel sounds are normoactive x4. Skin: Intact, warm, and dry. See nursing documentation for full skin assessment. Neurological: The patient is alert. Patient is oriented to person, place, and time. No focal neurological deficits. ASSESSMENT: 1. Congestive heart failure. 2. Atrial fibrillation. 3. Tba-CA-kcowudyjh myocardial infarction. 4. Status post PCI. 5. Type 2 diabetes, on insulin long-term. 6. Vascular dementia. 7. Diabetic nephropathy. 8. Hypertension secondary to diabetes mellitus. 9. Hyperlipidemia secondary to diabetes. 10.Major depressive disorder. 11.Acquired hypothyroidism. 12.Weakness and Deconditioning PLAN: A 74-year-old patient with the above history, was admitted to the swing bed unit at [facility] today for rehab for weakness and deconditioning. We will continue the patient's current medications as listed above. We will do Accu-Cheks 3 times daily. Consult PT, OT respectively. Consult Case Management for discharge planning. The patient's goal for her losartan is 50 mg as tolerated. Her goal for metoprolol is 200 mg daily as tolerated. No laboratory work is due at this time. The patient will have followup appointments with Cardiology and CHF Clinic after discharge. The patient currently has a Holter monitor, which she will continue to wear throughout her stay. The patient does wish to be a full code. The patient does wish to be transferred to a higher level of care should the need arise. This patient was seen and examined by me as an [facility] provider. TB: 04/24/2020 21:53:09 MODL: 04/24/2020 23:07:38 /[id number]
[2020-04-25] MEDS: Insulin Glarg,Human.Rec.Analog 100 Unit/ML SUBCUT SCH (20:05)
[2020-04-26] MEDS: Pantoprazole 40 MG Tab.CR PO SCH (05:59)
[2020-04-26] MEDS: Levothyroxine 25 MCG Tab PO SCH (05:59)
[2020-04-26] MEDS: Acetaminophen 650 MG Tab.ER PO SCH ×2 (07:50→19:33)
[2020-04-26] MEDS: Fish Oil/Omega-3 Fatty Acids 1 Gm Cap PO SCH (07:50)
[2020-04-26] MEDS: Magnesium Chloride 64 MG Tab.ER PO SCH (07:51)
[2020-04-26] MEDS: Phosphorus #1 250 MG Tab PO SCH ×2 (07:52→19:33)
[2020-04-26] MEDS: Calcium Carbonate/Vitamin D3 1250 MG-200 Unit Tab PO SCH ×2 (07:52→19:33)
[2020-04-26] MEDS: Beta-Carotene (Vitamin A) w/Vitamin C & E plus Minerals Tab PO SCH (07:52)
[2020-04-26] MEDS: Multivitamins with Iron/Calcium/Folic Acid/Minerals Tab PO SCH (07:52)
[2020-04-26] MEDS: Furosemide 20 MG Tab PO SCH (07:52)
[2020-04-26] MEDS: Apixaban 2.5 MG Tab PO SCH ×2 (07:52→19:33)
[2020-04-26] MEDS: Ticagrelor 90 MG Tab PO SCH ×2 (07:53→19:33)
[2020-04-26] MEDS: atorvaSTATin 40 MG Tab PO SCH (07:53)
[2020-04-26] MEDS: Oxybutynin 5 MG Tab.ER PO SCH (07:53)
[2020-04-26] MEDS: Losartan 25 MG Tab PO SCH (07:53)
[2020-04-26] MEDS: buPROPion 150 MG Tab.ER PO SCH (07:54)
[2020-04-26] MEDS: metFORMIN 500 MG Tab PO SCH (07:54)
[2020-04-26] MEDS: Citalopram 20 MG Tab PO SCH (07:54)
[2020-04-26] MEDS: Loratadine 10 MG Tab PO SCH (07:54)
[2020-04-26] MEDS: Gabapentin 100 MG Cap PO SCH ×3 (07:54→19:33)
[2020-04-26] MEDS: Insulin Lispro 100 Units/ML 3 ML Vial SUBCUT SCH ×6 (07:56→17:25)
[2020-04-26] MEDS: Hypromellose 0.3% Ophth Soln 15 ML Bottle EYEBOTH SCH ×4 (07:56→19:33)
[2020-04-26] MEDS: Mineral Oil/Petrolatum Ophth Oint 3.5 GM Tube EYEBOTH SCH ×2 (07:56→19:35)
[2020-04-26] MEDS: Metoprolol Succinate 50 MG Tab.ER PO SCH (08:07)
[2020-04-26] MEDS: METHYLPHENIDATE 20 MG PO SCH ×2 (08:07→19:34)
[2020-04-26] MEDS: Insulin Glarg,Human.Rec.Analog 100 Unit/ML SUBCUT SCH (19:34)
[2020-04-27] MEDS: Pantoprazole 40 MG Tab.CR PO SCH (06:09)
[2020-04-27] MEDS: Levothyroxine 25 MCG Tab PO SCH (06:09)
[2020-04-27] MEDS: Losartan 25 MG Tab PO SCH (08:20)
[2020-04-27] MEDS: buPROPion 150 MG Tab.ER PO SCH (08:20)
[2020-04-27] MEDS: Fish Oil/Omega-3 Fatty Acids 1 Gm Cap PO SCH (08:20)
[2020-04-27] MEDS: Multivitamins with Iron/Calcium/Folic Acid/Minerals Tab PO SCH (08:21)
[2020-04-27] MEDS: Furosemide 20 MG Tab PO SCH (08:21)
[2020-04-27] MEDS: Gabapentin 100 MG Cap PO SCH ×3 (08:21→19:24)
[2020-04-27] MEDS: Acetaminophen 650 MG Tab.ER PO SCH ×2 (08:21→19:24)
[2020-04-27] MEDS: Loratadine 10 MG Tab PO SCH (08:22)
[2020-04-27] MEDS: Metoprolol Succinate 50 MG Tab.ER PO SCH (08:22)
[2020-04-27] MEDS: Beta-Carotene (Vitamin A) w/Vitamin C & E plus Minerals Tab PO SCH (08:22)
[2020-04-27] MEDS: metFORMIN 500 MG Tab PO SCH (08:22)
[2020-04-27] MEDS: Magnesium Chloride 64 MG Tab.ER PO SCH (08:22)
[2020-04-27] MEDS: Citalopram 20 MG Tab PO SCH (08:22)
[2020-04-27] MEDS: atorvaSTATin 40 MG Tab PO SCH (08:22)
[2020-04-27] MEDS: Calcium Carbonate/Vitamin D3 1250 MG-200 Unit Tab PO SCH ×2 (08:22→19:24)
[2020-04-27] MEDS: Phosphorus #1 250 MG Tab PO SCH ×2 (08:23→19:23)
[2020-04-27] MEDS: Ticagrelor 90 MG Tab PO SCH ×2 (08:23→19:24)
[2020-04-27] MEDS: Oxybutynin 5 MG Tab.ER PO SCH (08:23)
[2020-04-27] MEDS: Apixaban 2.5 MG Tab PO SCH ×2 (08:23→19:24)
[2020-04-27] MEDS: Hypromellose 0.3% Ophth Soln 15 ML Bottle EYEBOTH SCH ×4 (08:24→19:23)
[2020-04-27] MEDS: Insulin Lispro 100 Units/ML 3 ML Vial SUBCUT SCH ×6 (08:24→17:33)
[2020-04-27] MEDS: METHYLPHENIDATE 20 MG PO SCH ×2 (08:28→19:25)
[2020-04-27] MEDS: Polyethylene Glycol 3350 Powder 17 GM Packet PO SCH (08:28)
[2020-04-27] MEDS: Insulin Glarg,Human.Rec.Analog 100 Unit/ML SUBCUT SCH (19:25)
[2020-04-27] MEDS: Mineral Oil/Petrolatum Ophth Oint 3.5 GM Tube EYEBOTH SCH (19:26)
[2020-04-28] MEDS: Pantoprazole 40 MG Tab.CR PO SCH (06:13)
[2020-04-28] MEDS: Levothyroxine 25 MCG Tab PO SCH (06:13)
[2020-04-28 07:12] LABS: ANION GAP 11.6 mmol/L (10-20)
[2020-04-28] MEDS: Gabapentin 100 MG Cap PO SCH ×3 (07:54→20:34)
[2020-04-28] MEDS: buPROPion 150 MG Tab.ER PO SCH (07:54)
[2020-04-28] MEDS: Magnesium Chloride 64 MG Tab.ER PO SCH (07:54)
[2020-04-28] MEDS: metFORMIN 500 MG Tab PO SCH (07:54)
[2020-04-28] MEDS: Fish Oil/Omega-3 Fatty Acids 1 Gm Cap PO SCH (07:54)
[2020-04-28] MEDS: Acetaminophen 650 MG Tab.ER PO SCH ×2 (07:55→20:49)
[2020-04-28] MEDS: Beta-Carotene (Vitamin A) w/Vitamin C & E plus Minerals Tab PO SCH (07:55)
[2020-04-28] MEDS: Phosphorus #1 250 MG Tab PO SCH ×2 (07:55→20:35)
[2020-04-28] MEDS: Oxybutynin 5 MG Tab.ER PO SCH (07:55)
[2020-04-28] MEDS: Apixaban 2.5 MG Tab PO SCH ×2 (07:55→20:34)
[2020-04-28] MEDS: Ticagrelor 90 MG Tab PO SCH ×2 (07:55→20:35)
[2020-04-28] MEDS: Furosemide 20 MG Tab PO SCH (07:56)
[2020-04-28] MEDS: atorvaSTATin 40 MG Tab PO SCH (07:56)
[2020-04-28] MEDS: Losartan 25 MG Tab PO SCH (07:56)
[2020-04-28] MEDS: Loratadine 10 MG Tab PO SCH (07:56)
[2020-04-28] MEDS: Calcium Carbonate/Vitamin D3 1250 MG-200 Unit Tab PO SCH ×2 (07:56→20:39)
[2020-04-28] MEDS: Multivitamins with Iron/Calcium/Folic Acid/Minerals Tab PO SCH (07:56)
[2020-04-28] MEDS: Insulin Lispro 100 Units/ML 3 ML Vial SUBCUT SCH ×6 (07:57→17:44)
[2020-04-28] MEDS: Citalopram 20 MG Tab PO SCH (07:57)
[2020-04-28] MEDS: Hypromellose 0.3% Ophth Soln 15 ML Bottle EYEBOTH SCH ×4 (07:58→20:38)
[2020-04-28] MEDS: METHYLPHENIDATE 20 MG PO SCH ×2 (08:00→20:46)
[2020-04-28] MEDS: Metoprolol Succinate 50 MG Tab.ER PO SCH ×2 (08:00→10:05)
[2020-04-28] MEDS ORDERED: Potassium Chloride 20 MEQ Tab.ER PO ONE (08:57)
[2020-04-28] MEDS ORDERED: Magnesium Chloride 64 MG Tab.ER PO ONE (08:58)
[2020-04-28] MEDS ORDERED: Acetaminophen 325 MG Tab PO PRN (09:52)
[2020-04-28] MEDS: Mineral Oil/Petrolatum Ophth Oint 3.5 GM Tube EYEBOTH SCH (20:39)
[2020-04-28] MEDS: Insulin Glarg,Human.Rec.Analog 100 Unit/ML SUBCUT SCH (20:42)
[2020-04-29] MEDS: Levothyroxine 25 MCG Tab PO SCH (06:22)
[2020-04-29] MEDS: Pantoprazole 40 MG Tab.CR PO SCH (06:22)
[2020-04-29] MEDS: Multivitamins with Iron/Calcium/Folic Acid/Minerals Tab PO SCH (08:32)
[2020-04-29] MEDS: Ticagrelor 90 MG Tab PO SCH ×2 (08:32→20:16)
[2020-04-29] MEDS: Acetaminophen 650 MG Tab.ER PO SCH ×2 (08:32→20:15)
[2020-04-29] MEDS: Beta-Carotene (Vitamin A) w/Vitamin C & E plus Minerals Tab PO SCH (08:32)
[2020-04-29] MEDS: atorvaSTATin 40 MG Tab PO SCH (08:32)
[2020-04-29] MEDS: Gabapentin 100 MG Cap PO SCH ×3 (08:32→20:16)
[2020-04-29] MEDS: Apixaban 2.5 MG Tab PO SCH ×2 (08:32→20:16)
[2020-04-29] MEDS: Citalopram 20 MG Tab PO SCH (08:33)
[2020-04-29] MEDS: Fish Oil/Omega-3 Fatty Acids 1 Gm Cap PO SCH (08:33)
[2020-04-29] MEDS: metFORMIN 500 MG Tab PO SCH (08:33)
[2020-04-29] MEDS: Loratadine 10 MG Tab PO SCH (08:33)
[2020-04-29] MEDS: Phosphorus #1 250 MG Tab PO SCH ×2 (08:33→20:15)
[2020-04-29] MEDS: buPROPion 150 MG Tab.ER PO SCH (08:33)
[2020-04-29] MEDS: Oxybutynin 5 MG Tab.ER PO SCH (08:33)
[2020-04-29] MEDS: Magnesium Chloride 64 MG Tab.ER PO SCH (08:33)
[2020-04-29] MEDS: Calcium Carbonate/Vitamin D3 1250 MG-200 Unit Tab PO SCH ×2 (08:34→20:15)
[2020-04-29] MEDS: Metoprolol Succinate 50 MG Tab.ER PO SCH (08:34)
[2020-04-29] MEDS: Losartan 25 MG Tab PO SCH (08:34)
[2020-04-29] MEDS: Furosemide 20 MG Tab PO SCH (08:34)
[2020-04-29] MEDS: METHYLPHENIDATE 20 MG PO SCH ×2 (08:37→20:37)
[2020-04-29] MEDS: Insulin Lispro 100 Units/ML 3 ML Vial SUBCUT SCH ×6 (08:39→17:49)
[2020-04-29] MEDS: Hypromellose 0.3% Ophth Soln 15 ML Bottle EYEBOTH SCH ×4 (08:40→20:21)
[2020-04-29] MEDS: Polyethylene Glycol 3350 Powder 17 GM Packet PO SCH (08:41)
[2020-04-29] MEDS: Mineral Oil/Petrolatum Ophth Oint 3.5 GM Tube EYEBOTH SCH (20:22)
[2020-04-29] MEDS: Insulin Glarg,Human.Rec.Analog 100 Unit/ML SUBCUT SCH (20:23)
[2020-04-30] MEDS: Pantoprazole 40 MG Tab.CR PO SCH (06:28)
[2020-04-30] MEDS: Levothyroxine 25 MCG Tab PO SCH (06:28)
[2020-04-30] MEDS: atorvaSTATin 40 MG Tab PO SCH (08:49)
[2020-04-30] MEDS: Citalopram 20 MG Tab PO SCH (08:49)
[2020-04-30] MEDS: Apixaban 2.5 MG Tab PO SCH ×2 (08:49→19:27)
[2020-04-30] MEDS: Furosemide 20 MG Tab PO SCH (08:49)
[2020-04-30] MEDS: Beta-Carotene (Vitamin A) w/Vitamin C & E plus Minerals Tab PO SCH (08:50)
[2020-04-30] MEDS: Losartan 25 MG Tab PO SCH (08:50)
[2020-04-30] MEDS: Loratadine 10 MG Tab PO SCH (08:50)
[2020-04-30] MEDS: Fish Oil/Omega-3 Fatty Acids 1 Gm Cap PO SCH (08:50)
[2020-04-30] MEDS: Magnesium Chloride 64 MG Tab.ER PO SCH (08:50)
[2020-04-30] MEDS: buPROPion 150 MG Tab.ER PO SCH (08:50)
[2020-04-30] MEDS: Gabapentin 100 MG Cap PO SCH ×3 (08:50→19:28)
[2020-04-30] MEDS: metFORMIN 500 MG Tab PO SCH (08:50)
[2020-04-30] MEDS: Acetaminophen 650 MG Tab.ER PO SCH ×2 (08:51→19:28)
[2020-04-30] MEDS: Calcium Carbonate/Vitamin D3 1250 MG-200 Unit Tab PO SCH ×2 (08:51→19:28)
[2020-04-30] MEDS: Insulin Lispro 100 Units/ML 3 ML Vial SUBCUT SCH ×6 (08:52→18:18)
[2020-04-30] MEDS: Hypromellose 0.3% Ophth Soln 15 ML Bottle EYEBOTH SCH ×4 (08:52→19:29)
[2020-04-30] MEDS: METHYLPHENIDATE 20 MG PO SCH ×2 (08:53→19:37)
[2020-04-30] MEDS: Metoprolol Succinate 50 MG Tab.ER PO SCH (08:57)
[2020-04-30] MEDS: Ticagrelor 90 MG Tab PO SCH ×2 (08:58→19:28)
[2020-04-30] MEDS: Multivitamins with Iron/Calcium/Folic Acid/Minerals Tab PO SCH (08:58)
[2020-04-30] MEDS: Oxybutynin 5 MG Tab.ER PO SCH (08:58)
[2020-04-30] MEDS: Phosphorus #1 250 MG Tab PO SCH ×2 (08:58→19:28)
[2020-04-30] MEDS: Mineral Oil/Petrolatum Ophth Oint 3.5 GM Tube EYEBOTH SCH (19:29)
[2020-04-30] MEDS: Insulin Glarg,Human.Rec.Analog 100 Unit/ML SUBCUT SCH (19:30)
[2020-05-01] MEDS: Levothyroxine 25 MCG Tab PO SCH (06:30)
[2020-05-01] MEDS: Pantoprazole 40 MG Tab.CR PO SCH (06:30)
[2020-05-01 06:35] VITALS: BP 134/80
[2020-05-01 07:19] LABS: ANION GAP 13.1 mmol/L (10-20)
[2020-05-01] MEDS: buPROPion 150 MG Tab.ER PO SCH (07:59)
[2020-05-01] MEDS: metFORMIN 500 MG Tab PO SCH (07:59)
[2020-05-01] MEDS: Fish Oil/Omega-3 Fatty Acids 1 Gm Cap PO SCH (07:59)
[2020-05-01] MEDS: Furosemide 20 MG Tab PO SCH (08:00)
[2020-05-01] MEDS ORDERED: Losartan 25 MG Tab PO SCH (08:00)
[2020-05-01] MEDS: Multivitamins with Iron/Calcium/Folic Acid/Minerals Tab PO SCH (08:00)
[2020-05-01] MEDS: Calcium Carbonate/Vitamin D3 1250 MG-200 Unit Tab PO SCH (08:00)
[2020-05-01] MEDS: Loratadine 10 MG Tab PO SCH (08:00)
[2020-05-01] MEDS: Ticagrelor 90 MG Tab PO SCH (08:00)
[2020-05-01] MEDS: Beta-Carotene (Vitamin A) w/Vitamin C & E plus Minerals Tab PO SCH (08:00)
[2020-05-01] MEDS: Gabapentin 100 MG Cap PO SCH (08:00)
[2020-05-01] MEDS: Magnesium Chloride 64 MG Tab.ER PO SCH (08:00)
[2020-05-01] MEDS: Phosphorus #1 250 MG Tab PO SCH (08:01)
[2020-05-01] MEDS: Apixaban 2.5 MG Tab PO SCH (08:01)
[2020-05-01] MEDS: Citalopram 20 MG Tab PO SCH (08:01)
[2020-05-01] MEDS: atorvaSTATin 40 MG Tab PO SCH (08:01)
[2020-05-01] MEDS: Oxybutynin 5 MG Tab.ER PO SCH (08:01)
[2020-05-01] MEDS: Acetaminophen 650 MG Tab.ER PO SCH (08:02)
[2020-05-01] MEDS: Metoprolol Succinate 50 MG Tab.ER PO SCH (08:03)
[2020-05-01] MEDS: Hypromellose 0.3% Ophth Soln 15 ML Bottle EYEBOTH SCH (08:03)
[2020-05-01] MEDS: Insulin Lispro 100 Units/ML 3 ML Vial SUBCUT SCH ×2 (08:04)
[2020-05-01] MEDS: METHYLPHENIDATE 20 MG PO SCH (08:04)
[2020-05-01 08:05] VITALS: PULSE 61
[2020-05-01] MEDS: Polyethylene Glycol 3350 Powder 17 GM Packet PO SCH (08:05)
--- NOTE | 2020-05-01 20:30 | DISCH ---
PRIMARY DISCHARGE DIAGNOSES: 1. Non-ST elevation myocardial infraction with stenting to the LAD at [facility]. 2. Atrial fibrillation with rapid ventricular response. 3. Acute type 2 diabetes, on long-term insulin. 4. Vascular dementia. 5. Diabetic nephropathy. 6. Essential hypertension. 7. Hyperlipidemia. 8. Major depressive disorder. 9. Hypothyroidism. 10.Weakness and deconditioning. REASON FOR ADMISSION: On the date of admission, this 74-year-old female who had previously presented to [facility] with atrial fibrillation and RVR on 04/08, was then transferred to [facility] for further care. While there, she was found to have severe congestive heart failure, combined left and right systolic dysfunction with moderate mitral and tricuspid regurgitation as well as multivessel coronary artery disease, and she did go into cardiogenic shock. She had an angiogram with intervention and stenting to the LAD. The patient was cardioverted while in the hospital and has been in a normal sinus rhythm. There was reports of nonsustained ventricular tachycardia and torsades, but her electrolytes have been replaced. The patient was started on Eliquis and Brilinta and recommendations were made for Life Vest, but consideration by [facility] specialist, decision was made that she did not get placed on a Life Vest, but does have a youth nutritional monitor in place. HOSPITAL COURSE: At our facility, the patient has been doing well. She has been progressing with therapies. Her electrolytes were monitored and she is on magnesium and K-Phos replacement. Potassium was 4.1 today. Magnesium was 1.8. She had her blood sugars monitored 4 times a day and is on insulin. Did have a high up to 280 last night. She denied having any treats. Otherwise, 130 this morning and she had no other problems with blood sugars. The patient's breathing is good. She has not had any cough. Blood pressures have actually been up in the 130s and 140s. Her losartan was just at 12.5 mg daily coming out of [place], but previously she had been on telmisartan 80 mg. She is now on Toprol 100 mg daily and some heart rates were in the 55 range, so a few doses were held, but she had not had any problems with that. Previously, it sounds like she was on diltiazem. She is normally a patient of [facility] and will be following up with her provider there, Chantel Butcher. I did call and give Chantel Hadley a sign-out including med changes like Neurontin increased to 3 times a day, Eliquis and Brilinta being new, telmisartan [address] of the losartan which she was titrated up to 25 mg here today. Toprol 100 mg, magnesium and phosphorus supplements. We will also fax med list over to their clinic. I did also recommend potentially the Lexapro should be decreased down to 20 mg due to it being max dose, but she has been tolerating it for years. Also, metformin is 500 mg daily, which as long as the patient is not in any active heart failure is fine to continue. She is also on Lasix 20 mg daily and has not been lightheaded or dizzy. She has no edema. PHYSICAL EXAMINATION: Vitals Signs: Discharging weight is 89.6 kg, temperature 98.8, pulse 61, blood pressure 134/80, respiratory rate 18, and O2 of 97% on room air. General: She is in no acute distress. Heart: Regular rate and rhythm. Lungs: Sounds are clear to auscultation bilaterally without crackles or wheezes. Abdomen: Has positive bowel sounds. Soft, nontender. Extremities: Warm and dry. No edema. Neurologic: Mental status, alert and orientated. DISCHARGE PLANS AND INSTRUCTIONS: She is going back to [facility]. The nurse there is aware. She will see Chantel Butcher in 1 to 2 weeks for post- hospital followup, and also we will have her follow up with [facility]. I believe her EF was reported to me as 25%. Losartan changed back to telmisartan 80 mg daily. Continue 4 times a day blood sugar checks and insulin. She will resume her same metformin that she was on previously at home. addendum: Seen by Dr. Cash on 05/01/20 primary reason for home health is for nursing for teaching and assessment for a new onset of CHF along with PT for mobility and home safety. She is homebound due to her CHF and cognitive impairment distances from home are infrequent and require assistance of another person. I will periodically review this plan of care along with her PCP Chantel Butcher. MKA: 05/01/2020 09:51:59 MODL: 05/01/2020 20:22:39 /[id number] [facility]
== END 2020-05-01 10:00 | disposition home or self-care (01) | DRG 947 ==
LOC: VM.MS 11:51
PROVIDERS: ADMIT Nurse Practitioner Family; ATTEND Nurse Practitioner Family
DX: R53.1 Weakness (principal); I21.4 Non-ST elevation (NSTEMI) myocardial infarction; I50.40 Unspecified combined systolic (congestive) and diastolic (congestive) heart failure; Z20.828 Contact with and (suspected) exposure to other viral communicable diseases; I11.0 Hypertensive heart disease with heart failure; I48.91 Unspecified atrial fibrillation; F01.50 Vascular dementia, unspecified severity, without behavioral disturbance, psychotic disturbance, mood disturbance, and anxiety; E11.21 Type 2 diabetes mellitus with diabetic nephropathy; E78.5 Hyperlipidemia, unspecified; F32.9 Major depressive disorder, single episode, unspecified; E03.9 Hypothyroidism, unspecified; I25.10 Atherosclerotic heart disease of native coronary artery without angina pectoris; N32.81 Overactive bladder; Z95.5 Presence of coronary angioplasty implant and graft; Z79.01 Long term (current) use of anticoagulants; Z90.49 Acquired absence of other specified parts of digestive tract; Z88.2 Allergy status to sulfonamides; Z79.4 Long term (current) use of insulin; Z79.899 Other long term (current) drug therapy; Z86.73 Personal history of transient ischemic attack (TIA), and cerebral infarction without residual deficits; G47.33 Obstructive sleep apnea (adult) (pediatric)
CPT/HCPCS: 36415; 80048; 82962; 83735; 97110-GP; 97116-GP; 97162-GP; 97530-GP; A9270-GY; J1815-GY; U0002

== ENCOUNTER 2020-06-15 16:34 | Emergency (ER) | payer MEDICARE ==
[2020-06-15] MEDS ORDERED: Sodium Chloride 0.9% 10 ML Syringe FLUSH PRN (16:38)
[2020-06-15] MEDS ORDERED: Ondansetron 4 MG/2 ML SDV IVPUSH ONE (16:39)
[2020-06-15] MEDS ORDERED: Lactated Ringers 1,000 ML IV ONE (16:39)
--- NOTE | 2020-06-15 16:51 | EDM.PDOC ---
ED HPI GENERAL MEDICAL PROBLEM - General Stated Complaint: ER Time Seen by Provider: 06/15/20 16:35 Source of Information: Reports: Patient, Family - History of Present Illness INITIAL COMMENTS - FREE TEXT/NARRATIVE: Virginia is a 74 y/o female who is brought to the ER by her since she has not eaten or drank much for the last 2 days. She had her second COVID vaccine on afternoon and ever since that tome she has not eaten or drank anything because she feels ill. She has not taken her meds either for hte last 2 days. She was hospitalized in May at [facility] and had stents placed. She was then here for Swing Bed care at [facility] and discharged on 06/01/2020 to home. She lives at the [facility] with her . Since this admission she has had a LifeVest on and in the last day or so the battery has been beeping and acting like it wants to discharge, but it does not. She is also struggling with a yeast-like infection that she has from the magnets on the LifeVest touching her skin. - Related Data Allergies Allergy/AdvReac Type Severity Reaction Status Date / Time methotrexate Allergy Severe Other Verified 06/15/20 17:11 Sulfa (Sulfonamide Allergy Severe Anaphylactic Verified 06/15/20 17:11 Antibiotics) Shock diltiazem AdvReac Unknown contraindicated Verified 06/15/20 17:11 with cardiac condition Home Meds: Home Meds Levothyroxine 25 mcg PO ACBREAKFAST 07/02/17 [History] buPROPion [buPROPion XL] 150 mg PO DAILY 07/03/17 [History] Insulin Glargine,Hum.Rec.Anlog [Basaglar Kwikpen U-100] 40 unit SQ BEDTIME 07/04/17 [History] Budesonide [Pulmicort Flexhaler] 2 inh PO BID 04/08/20 [History] Gabapentin [Neurontin] 100 mg PO TID 04/08/20 [History] Insulin Aspart [NovoLOG] 3 unit SUBCUT TIDMEALS 04/08/20 [History] polyethylene glycoL 3350 [Miralax] 17 gm PO Q48H 04/08/20 [History] Acetaminophen [Acetaminophen ER] 650 mg PO BID MDD 4000MG PER DAY 04/24/20 [History] Albuterol Sulfate [Proventil Hfa] 2 inh PO Q4H PRN 04/24/20 [History] Albuterol [Proventil Neb Soln] 2.5 mg NEB Q4HRRT PRN 04/24/20 [History] Apixaban [Eliquis] 5 mg PO BID 04/24/20 [History] Betamethasone/Clotrimazole [Lotrisone] 1 applic TOP BID PRN 04/24/20 [History] Calc/D3/Mag/Zn/Nisha/[place] [Calcium 600 MG Plus Vit D] 1 tab PO BID 04/24/20 [History] Capsaicin [Zostrix 0.025% Crm] 1 applic TOP Q6H PRN 04/24/20 [History] Carboxymethylcellulose Sodium [Refresh Liquigel 1%] 1 drop EYEBOTH DAILY 04/24/20 [History] Fexofenadine [Alem] 180 mg PO DAILY 04/24/20 [History] Lutein/Minerals/Vit A,C & E [Ocuvite] 1 tab PO DAILY 04/24/20 [History] Methylphenidate HCl 20 mg PO BID 04/24/20 [History] Metoprolol Succinate [Toprol XL 100mg] 125 mg PO DAILY 04/24/20 [History] Mineral Oil/Petrolatum Oint [Lacri-Lube S.O.P Oint] 1 applic EYEBOTH BID 04/24/20 [History] Multivitamin 1 tab PO DAILY 04/24/20 [History] [employer] Fatty Acids/Fish Oil [Fish Oil 1,000 mg Softgel] 1,000 mg PO DAILY 04/24 [History] Oxybutynin Chloride [Oxybutynin Chloride ER] 10 mg PO DAILY 04/24/20 [History] Pantoprazole Sodium [Protonix] 40 mg PO DAILY 04/24/20 [History] Propylene Glycol/Peg 400 [Systane 0.3-0.4% Eye Drops] 1 drop EYEBOTH QID 04/24/20 [History] Rosuvastatin [Crestor] 10 mg PO DAILY 04/24/20 [History] Sod Phos Di, [place]/K Phos [place] [K-Phos Neutral Tablet] 250 mg PO BID 04/24/20 [History] Ticagrelor [Brilinta] 90 mg PO BID 04/24/20 [History] metFORMIN HCl [Metformin HCl ER] 500 mg PO DAILY 04/24/20 [History] Insulin Aspart 0 dose SQ ASDIRECTED 05/27/20 [History] Losartan [Cozaar] 25 mg PO DAILY 05/27/20 [History] Acetaminophen [Tylenol Extra Strength] 500 - 1,000 mg PO Q8H PRN 05/28/20 [History] Benzonatate [Tessalon Perle] 100 mg PO TID PRN 05/28/20 [History] Magnesium Oxide [Mag-Oxide] 160 mg PO DAILY 05/28/20 [History] Spironolactone [Aldactone] 12.5 mg PO DAILY 05/28/20 [History] guaiFENesin [Robitussin] 20 ml PO Q4H PRN 05/28/20 [History] Fluconazole [Diflucan] 150 mg PO DAILY 06/15/20 [History] Miconazole [Cruex 2%] 1 applic TP TID #85 canister 06/15/20 [Rx] Ondansetron [Ondansetron ODT] 4 mg PO Q6H PRN #15 tab.rapdis 06/15/20 [Rx] Past Medical History HEENT History: Reports: Cataract, Hard of Hearing Cardiovascular History: Reports: Afib, Heart Failure, Hypertension, Stents Respiratory History: Reports: Asthma, Sleep Apnea Gastrointestinal History: Reports: Fatty Liver, GERD Other Genitourinary History: Overactive bladder 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 Clavicle FX Neurological History: Reports: Neuropathy, Diabetic, Other (See Below) Other Neuro History: vascular dementia Psychiatric History: Reports: Dementia, Depression Endocrine/Metabolic History: Reports: Diabetes, Type II, Obesity/BMI 30+ Other Hematologic History: Thrombocytopenia Immunologic History: Reports: None - Infectious Disease History Infectious Disease History: Reports: Chicken Pox - Past Surgical History Cardiovascular Surgical History: Reports: Coronary Artery Stent GI Surgical History: Reports: Cholecystectomy, Colonoscopy, EGD Other Female Surgeries/Procedures: Cystocele Musculoskeletal Surgical History: Reports: Knee Replacement, Shoulder Surgery Other Musculoskeletal Surgeries/Procedures:: Toe ORIF Social & Family History - Family History Family Medical History: No Pertinent Family History - Caffeine Use Caffeine Use: Reports: Coffee, Soda - Living Situation & Occupation Living situation: Reports: , with Spouse, Assisted Living Occupation: Retired Review of Systems - Review of Systems Review Of Systems: See Below Constitutional: Reports: Weakness Eyes: Reports: No Symptoms Ears: Reports: No Symptoms Nose: Reports: No Symptoms Mouth/Throat: Reports: No Symptoms Respiratory: Reports: No Symptoms Cardiovascular: Reports: No Symptoms GI/Abdominal: Reports: Decreased Appetite, Diarrhea, Nausea, Vomiting Genitourinary: Reports: No Symptoms Musculoskeletal: Reports: No Symptoms Skin: Reports: No Symptoms Neurological: Reports: No Symptoms Psychiatric: Reports: No Symptoms ED EXAM, GENERAL - Physical Exam Exam: See Below General Appearance: Alert, WD/WN (Elderly female, appears to not feel well.) Eye Exam: Bilateral Eye: PERRL Ears: Normal External Exam, Normal Canal, Normal TMs Nose: Normal Inspection, Normal Mucosa Throat/Mouth: Normal Inspection, Normal Teeth, Normal Voice Head: Atraumatic, Normocephalic Neck: Supple Respiratory/Chest: No Respiratory Distress, Lungs Clear, Chest Non-Tender Back Exam: Other (Note erythematous rash with satellite lesions in the place where the LifeVest magnets touch her skin.) Course - Vital Signs Text/Narrative:: 162 The patient was seen by the DIRECTOR CLOUD TRANSFORMATION. Labs. CXR, and EKG ordered. She was given a liter of LR to see if that would bring down her rate. Zofran 4 mg IVO given for nausea. 1710 Nausea decreasing. IV fluids still infusing, HR remains in 130s and Atrial Fib. Metoprolol 5mg IVP ordered since she had not had of her oral meds today. 1730 HR decreasing now to 120s, will continue with IV fluids. 1845 BP elevated and HR in the 130s, Cardizem 20mg IVP ordered. 0 UA reviewed. Note Leuk Es=lg, Protein=30, Atwryta=171, Ketones=80, Blood=sm, WBC=30-60, RBCs=5-10, Epis=few, Bacteria-few. Will treat with Ceftriax one 1gm IVP x 1 to cover for UTI and Cx pending. HR decreased to 110s now and BP improved after fluids and meds. Patient feeling better now and ready to go home. Will send home with Zofran. Written instructions were given and the patient left the ER in stable condition. Last Recorded V/S: Last Vital Signs Temp 36.3 C 06/15/20 16:34 Pulse 126 H 06/15/20 18:36 Resp 12 06/15/20 17:20 BP 161/139 H 06/15/20 18:40 Pulse Ox 95 06/15/20 17:20 - Orders/Labs/Meds Orders: Active Orders 24 hr Category Date Time Status EKG Documentation Completion [RC] STAT Care 06/15/20 16:38 Active Sodium Chloride 0.9% [Saline Flush] Med 06/15/20 16:38 Active 10 ml FLUSH ASDIRECTED PRN Saline Lock Insert [OM.PC] Stat Oth 06/15/20 16:38 Ordered Medication Orders Sodium Chloride (Saline Flush) 10 ml FLUSH ASDIRECTED PRN PRN Reason: Keep Vein Open Labs: Laboratory Tests 06/15/20 06/15/20 06/15/20 Range/Units 16:40 16:40 16:40 WBC 6.0 (4.0-10.0) x10^3/uL RBC 4.95 (4.00-5.50) x10^6/uL Hgb 13.2 (12.0-16.0) g/dL Hct 40.0 (33.0-47.0) % MCV 80.8 D (78.0-93.0) fL MCH 26.7 (26.0-32.0) pg MCHC 33.0 (32.0-36.0) g/dL RDW Coeff of Ananda 16.2 H (10.0-15.0) % Plt Count 114 L (130-400) x10^3/uL Neut % (Auto) 61.5 (50.0-80.0) % Lymph % (Auto) 26.5 (25.0-50.0) % [place] % (Auto) 9.8 (2.0-11.0) % Eos % (Auto) 1.7 (0.0-4.0) % Baso % (Auto) 0.5 (0.2-1.2) % PT 11.2 (9.9-12.5) SEC INR 1.0 L (2.0-3.5) APTT 23.5 L (25.6-32.8) SEC D-Dimer, Quantitative 0.42 (<=0.58) mg/LFEU Sodium (136-145) mmol/L Potassium (3.5-5.1) mmol/L Chloride (98-107) mmol/L Carbon Dioxide (21-32) mmol/L Anion Gap (5-15) mmol/L BUN (7-18) mg/dL Creatinine (0.55-1.02) mg/dL Est Cr Clr Drug Dosing Estimated GFR (MDRD) Glucose (74-106) mg/dL Calcium (8.5-10.1) mg/dL Corrected Calcium (8.5-10.1) mg/dL Magnesium 1.9 (1.8-2.4) mg/dL Total Bilirubin (0.2-1.0) mg/dL AST (15-37) U/L ALT (14-59) U/L Alkaline Phosphatase (46-116) U/L Troponin I < 0.017 (<=0.056) ng/mL C-Reactive Protein 4.0 H (<=0.9) mg/dL Total Protein (6.4-8.2) g/dL Albumin (3.4-5.0) g/dL Globulin Albumin/Globulin Ratio Urine Color (YELLOW) Urine Appearance (CLEAR) Urine pH (5.0-8.0) Ur Specific [place] Urine Protein (NEGATIVE) mg/dL Urine Glucose (UA) (NEGATIVE) mg/dL Urine Ketones (NEGATIVE) mg/dL Urine Occult Blood (NEGATIVE) Urine Nitrite (NEGATIVE) Urine Bilirubin (NEGATIVE) Urine Urobilinogen (0.2) EU/dL Ur Leukocyte Esterase (NEGATIVE) Urine RBC (NOT SEEN) /HPF Urine WBC (NOT SEEN) /HPF Ur Squamous Epith Cells (NEGATIVE) /HPF Urine Bacteria (NEGATIVE) /HPF Urine Mucus (NEGATIVE) /LPF 06/15/20 06/15/20 Range/Units 16:40 17:39 WBC (4.0-10.0) x10^3/uL RBC (4.00-5.50) x10^6/uL Hgb (12.0-16.0) g/dL Hct (33.0-47.0) % MCV (78.0-93.0) fL MCH (26.0-32.0) pg MCHC (32.0-36.0) g/dL RDW Coeff of Ananda (10.0-15.0) % Plt Count (130-400) x10^3/uL Neut % (Auto) (50.0-80.0) % Lymph % (Auto) (25.0-50.0) % [place] % (Auto) (2.0-11.0) % Eos % (Auto) (0.0-4.0) % Baso % (Auto) (0.2-1.2) % PT (9.9-12.5) SEC INR (2.0-3.5) APTT (25.6-32.8) SEC D-Dimer, Quantitative (<=0.58) mg/LFEU Sodium 136 (136-145) mmol/L Potassium 4.2 (3.5-5.1) mmol/L Chloride 100 (98-107) mmol/L Carbon Dioxide 21 (21-32) mmol/L Anion Gap 19.2 H (5-15) mmol/L BUN 18 (7-18) mg/dL Creatinine 1.1 H (0.55-1.02) mg/dL Est Cr Clr Drug Dosing TNP Estimated GFR (MDRD) 48 Glucose 291 H (74-106) mg/dL Calcium 9.9 (8.5-10.1) mg/dL Corrected Calcium 10.78 H (8.5-10.1) mg/dL Magnesium (1.8-2.4) mg/dL Total Bilirubin 0.4 (0.2-1.0) mg/dL AST 21 (15-37) U/L ALT 17 (14-59) U/L Alkaline Phosphatase 73 (46-116) U/L Troponin I (<=0.056) ng/mL C-Reactive Protein (<=0.9) mg/dL Total Protein 7.7 (6.4-8.2) g/dL Albumin 2.9 L (3.4-5.0) g/dL Globulin 4.8 Albumin/Globulin Ratio 0.60 Urine Color Light yellow (YELLOW) Urine Appearance Cloudy H (CLEAR) Urine pH 6.0 (5.0-8.0) Ur Specific [place] 1.015 Urine Protein 30 H (NEGATIVE) mg/dL Urine Glucose (UA) 250 H (NEGATIVE) mg/dL Urine Ketones 80 H (NEGATIVE) mg/dL Urine Occult Blood Small H (NEGATIVE) Urine Nitrite Negative (NEGATIVE) Urine Bilirubin Negative (NEGATIVE) Urine Urobilinogen 0.2 (0.2) EU/dL Ur Leukocyte Esterase Large H (NEGATIVE) Urine RBC 5-10 H (NOT SEEN) /HPF Urine WBC 30-40 H (NOT SEEN) /HPF Ur Squamous Epith Cells Few H (NEGATIVE) /HPF Urine Bacteria Occasional H (NEGATIVE) /HPF Urine Mucus Few H (NEGATIVE) /LPF Meds: Medications Generic Name Dose Route Start Last Admin Trade Name Freq PRN Reason Stop Dose Admin Sodium Chloride 10 ml 06/15/20 16:38 Saline Flush FLUSH ASDIRECTED PRN Keep Vein Open Discontinued Medications Generic Name Dose Route Start Last Admin Trade Name Freq PRN Reason Stop Dose Admin Ceftriaxone Sodium 1 gm 06/15/20 19:35 Rocephin IVPUSH 06/15/20 19:36 STAT ONE Diltiazem HCl 20 mg 06/15/20 18:50 Cardizem IVPUSH 06/15/20 18:51 ONETIME ONE Lactated Ringer's 1,000 mls @ 999 mls/hr 06/15/20 16:39 06/15/20 16:49 Ringers, Lactated IV 06/15/20 17:39 999 mls/hr ONETIME ONE Administration Sodium Chloride 1,000 mls @ 999 mls/hr 06/15/20 17:23 06/15/20 17:24 Normal Saline IV 06/15/20 18:23 999 mls/hr ONETIME ONE Administration Losartan Potassium 25 mg 06/15/20 18:23 06/15/20 18:40 Cozaar PO 06/15/20 18:24 25 mg NOW STA Administration Metoclopramide HCl 10 mg 06/15/20 18:58 06/15/20 19:09 Reglan IVPUSH 06/15/20 18:59 10 mg ONETIME ONE Administration Metoprolol Succinate 100 mg 06/15/20 18:25 06/15/20 18:36 Toprol Xl PO 06/15/20 18:26 100 mg ONETIME ONE Administration Metoprolol Tartrate 5 mg 06/15/20 17:09 06/15/20 17:20 Lopressor IVPUSH 06/15/20 17:10 5 mg ONETIME ONE Administration Metoprolol Tartrate 5 mg 06/15/20 17:39 06/15/20 17:46 Lopressor IVPUSH 06/15/20 17:40 5 mg ONETIME ONE Administration Ondansetron HCl 4 mg 06/15/20 16:39 06/15/20 16:51 Zofran IVPUSH 06/15/20 16:40 4 mg ONETIME ONE Administration Departure - Departure Time of Disposition: 19:42 Disposition: Home, Self-Care 01 Condition: Good Clinical Impression: UTI, Urinary tract infectious disease, Dehydration, Anticoagulated, Fungal dermatitis Atrial fibrillation Qualifiers: Atrial fibrillation type: unspecified Qualified Code(s): I48.91 - Unspecified atrial fibrillation Adverse reaction to vaccine Qualifiers: Encounter type: initial encounter Qualified Code(s): T50.Z95A - Adverse effect of other vaccines and biological substances, initial encounter - Discharge Information *PRESCRIPTION DRUG MONITORING PROGRAM REVIEWED*: Not Applicable *COPY OF PRESCRIPTION DRUG MONITORING REPORT IN PATIENT BETH: Not Applicable Prescriptions: Miconazole [Cruex 2%] 1 applic TP TID #85 canister Ondansetron [Ondansetron ODT] 4 mg PO Q6H PRN #15 tab.rapdis PRN Reason: Nausea Instructions: Dehydration, Adult, [id number], Urinary Tract Infection, Adult, Atrial Fibrillation, [id number] Referrals: Chantel Butcher CORPORATE ACCOUNTING MANAGER [Primary Care Provider] - Sepsis Event Note (ED) - Focused Exam Vital Signs: Vital Signs Temp Pulse Pulse Resp BP BP Pulse Ox 06/15/20 18:40 161/139 H 06/15/20 18:36 126 H 161/139 H 06/15/20 17:47 135 H 168/103 H 06/15/20 17:46 135 H 168/103 H 06/15/20 17:20 130 H 135 H 12 154/97 H 154/97 H 95 06/15/20 16:34 36.3 C 152 H 18 143/105 H 98 - My Orders Last 24 Hours: My Active Orders 06/15/20 16:38 EKG Documentation Completion [RC] STAT Sodium Chloride 0.9% [Saline Flush] 10 ml FLUSH ASDIRECTED PRN Saline Lock Insert [OM.PC] Stat - Assessment/Plan Last 24 Hours: My Active Orders 06/15/20 16:38 EKG Documentation Completion [RC] STAT Sodium Chloride 0.9% [Saline Flush] 10 ml FLUSH ASDIRECTED PRN Saline Lock Insert [OM.PC] Stat Assessment:: 1)Nausea 2)Adverse Reaction to Vaccine 3)Atrial Fibrillation 4)Dehydration 5)UTI 6)Fungal Dermatitis Plan: -Ondanestron ODT 4mg oral every 4-6 hours as needed for nausea #4(ER) #15 (Rx) Use the nausea meds as you need and increase your intake. -Stay hydrated. -Rest -Resume taking your medications as prescribed. -Cruex 2% powder is ordered for you to try on the rash on your back. Continue to use the oral medication that your PCP prescribed for you. -You were given a one time dose of Ceftrixone for UTI symptoms. A urine culture is being done and if further meds are needed, you will be notified. -Follow up with your PCP in the next 2-3 days or sooner if you are not feeling better. Please discuss the use if the LifeVest with your PCP and Screedman/Laborer. We are not advising to stop wearing the vest due to your cardiac condition. Please contact your environmental associate for any further questions regarding the device. -Return to the ER for any concerns.
[2020-06-15] MEDS ORDERED: Metoprolol Tartrate 5 MG/5 ML SDV IVPUSH ONE ×2 (17:09→17:39)
[2020-06-15 17:13] LABS: PTT,PARTIAL THROMBOPLSTIN TIME 23.5 SEC (25.6-32.8)
[2020-06-15 17:16] LABS: ANION GAP 19.2 mmol/L (5-15); CHLORIDE,CL 100 mmol/L (98-107); SODIUM,NA 136 mmol/L (136-145)
[2020-06-15] MEDS ORDERED: Sodium Chloride 0.9% 1,000 ML IV ONE (17:23)
[2020-06-15] MEDS ORDERED: Losartan 25 MG Tab PO STA (18:23)
[2020-06-15] MEDS ORDERED: Metoprolol Succinate 50 MG Tab.ER PO ONE (18:25)
[2020-06-15] MEDS ORDERED: Diltiazem 50 MG/10 ML SDV IVPUSH ONE (18:50)
--- NOTE | 2020-06-15 18:52 | CR ---
[id number] RAD/RAD Chest PA or AP 1V EXAM: SINGLE VIEW CHEST. INDICATION: ATRIAL FIBRILLATION COMPARISON: CORRELATION IS MADE WITH APRIL 10, 2020 FINDINGS: The lungs are clear The cardiomediastinal contour is stable IMPRESSION: STABLE CHEST Keenan Heredia MD 06/15/20 [id number] Thank you for allowing us to participate in the care of your patient.
[2020-06-15] MEDS ORDERED: Metoclopramide 10 MG/2 ML SDV IVPUSH ONE (18:58)
[2020-06-15] MEDS ORDERED: cefTRIAXone 1 GM Vial IVPUSH ONE (19:35)
[2020-06-15] MEDS ORDERED: Take Home: Ondansetron 4 MG Tab.DIS, 2 Tab Pack PO ONE (19:49)
[2020-06-16 00:48] VITALS: PULSE 118
[2020-06-16 00:49] VITALS: BP 122/81
== END 2020-06-15 20:08 | disposition home or self-care (01) ==
LOC: VM.ED 16:34
DX: I48.91 Unspecified atrial fibrillation (principal); N39.0 Urinary tract infection, site not specified; E86.0 Dehydration; B36.9 Superficial mycosis, unspecified; I11.0 Hypertensive heart disease with heart failure; I50.9 Heart failure, unspecified; J45.909 Unspecified asthma, uncomplicated; K21.9 Gastro-esophageal reflux disease without esophagitis; M19.90 Unspecified osteoarthritis, unspecified site; F03.90 Unspecified dementia, unspecified severity, without behavioral disturbance, psychotic disturbance, mood disturbance, and anxiety; E11.9 Type 2 diabetes mellitus without complications; Z79.01 Long term (current) use of anticoagulants; Z88.8 Allergy status to other drugs, medicaments and biological substances; Z88.2 Allergy status to sulfonamides; Z79.4 Long term (current) use of insulin; Z79.899 Other long term (current) drug therapy; T50.B95A Adverse effect of other viral vaccines, initial encounter; Z95.5 Presence of coronary angioplasty implant and graft; Z79.82 Long term (current) use of aspirin
CPT/HCPCS: 71045; 80053; 81001; 83735; 84484; 85025; 85379; 85610; 85730; 86140; 93005; 96374; 96375; 99284; 99285-25; A9270-GY; J0696; J2405; J2765; J3490; J7030; J7120

== ENCOUNTER 2020-06-17 12:06 | Emergency (ER) | payer MEDICARE ==
--- NOTE | 2020-06-17 12:28 | EDM.PDOC ---
ED HPI GENERAL MEDICAL PROBLEM - General Chief Complaint: Cardiovascular Problem Stated Complaint: RACING HEART Time Seen by Provider: 06/17/20 12:15 Source of Information: Reports: Patient, Family, Old Records History Limitations: Reports: No Limitations - History of Present Illness INITIAL COMMENTS - FREE TEXT/NARRATIVE: Per the patient and the states that her heart has been racing the last couple of days she was seen here Tuesday in the ER with fast heart rate and palpitations. States it was doing the same thing today and it was sitting the LifeVest off constantly which they took off. Says the heart rate at the house was in the 150s. Patient states she has felt a little shortness of breath but it only last for a few seconds every now and then. She denies any chest pain GURROLA orthopnea or pedal edema. They saw the fashion consultant sales about 2 weeks ago where they tried increasing her medication but it does not seem to work. She has no other complaints at this time Duration: Day(s): Improves with: Reports: Medication Associated Symptoms: Reports: No Other Symptoms, Shortness of Breath. Denies: Confusion, Chest Pain, Cough, cough w sputum, Diaphoresis, Fever/Chills, Headaches, Malaise, Nausea/Vomiting, Seizure, Syncope, Weakness - Related Data Allergies Allergy/AdvReac Type Severity Reaction Status Date / Time methotrexate Allergy Severe Other Verified 06/15/20 17:11 Sulfa (Sulfonamide Allergy Severe Anaphylactic Verified 06/15/20 17:11 Antibiotics) Shock diltiazem AdvReac Unknown Anaphylactic Verified 06/16/20 00:22 Shock Home Meds: Home Meds Levothyroxine 25 mcg PO ACBREAKFAST 07/02/17 [History] buPROPion [buPROPion XL] 150 mg PO DAILY 07/03/17 [History] Insulin Glargine,Hum.Rec.Anlog [Basaglar Kwikpen U-100] 40 unit SQ BEDTIME 07/04/17 [History] Budesonide [Pulmicort Flexhaler] 2 inh PO BID 04/08/20 [History] Gabapentin [Neurontin] 100 mg PO TID 04/08/20 [History] Insulin Aspart [NovoLOG] 3 unit SUBCUT TIDMEALS 04/08/20 [History] polyethylene glycoL 3350 [Miralax] 17 gm PO Q48H 04/08/20 [History] Acetaminophen [Acetaminophen ER] 650 mg PO BID MDD 4000MG PER DAY 04/24/20 [History] Albuterol Sulfate [Proventil Hfa] 2 inh PO Q4H PRN 04/24/20 [History] Albuterol [Proventil Neb Soln] 2.5 mg NEB Q4HRRT PRN 04/24/20 [History] Apixaban [Eliquis] 5 mg PO BID 04/24/20 [History] Betamethasone/Clotrimazole [Lotrisone] 1 applic TOP BID PRN 04/24/20 [History] Calc/D3/Mag/Zn/Nisha/Christiano/[place] [Calcium 600 MG Plus Vit D] 1 tab PO BID 04/24/20 [History] Capsaicin [Zostrix 0.025% Crm] 1 applic TOP Q6H PRN 04/24/20 [History] Carboxymethylcellulose Sodium [Refresh Liquigel 1%] 1 drop EYEBOTH DAILY 04/24/20 [History] Fexofenadine [Alem] 180 mg PO DAILY 04/24/20 [History] Lutein/Minerals/Vit A,C & E [Ocuvite] 1 tab PO DAILY 04/24/20 [History] Methylphenidate HCl 20 mg PO BID 04/24/20 [History] Metoprolol Succinate [Toprol XL 100mg] 125 mg PO DAILY 04/24/20 [History] Mineral Oil/Petrolatum Oint [Lacri-Lube S.O.P Oint] 1 applic EYEBOTH BID 04/24/20 [History] Multivitamin 1 tab PO DAILY 04/24/20 [History] [place]-3 Fatty Acids/Fish Oil [Fish Oil 1,000 mg Softgel] 1,000 mg PO DAILY 04/24/20 [History] Oxybutynin Chloride [Oxybutynin Chloride ER] 10 mg PO DAILY 04/24/20 [History] Pantoprazole Sodium [Protonix] 40 mg PO DAILY 04/24/20 [History] Propylene Glycol/Peg 400 [Systane 0.3-0.4% Eye Drops] 1 drop EYEBOTH QID 04/24/20 [History] Rosuvastatin [Crestor] 10 mg PO DAILY 04/24/20 [History] Sod Phos Di, [place]/K Phos [place] [K-Phos Neutral Tablet] 250 mg PO BID 04/24/20 [History] Ticagrelor [Brilinta] 90 mg PO BID 04/24/20 [History] metFORMIN HCl [Metformin HCl ER] 500 mg PO DAILY 04/24/20 [History] Insulin Aspart 0 dose SQ ASDIRECTED 05/27/20 [History] Losartan [Cozaar] 25 mg PO DAILY 05/27/20 [History] Acetaminophen [Tylenol Extra Strength] 500 - 1,000 mg PO Q8H PRN 05/28/20 [History] Benzonatate [Tessalon Perle] 100 mg PO TID PRN 05/28/20 [History] Magnesium Oxide [Mag-Oxide] 160 mg PO DAILY 05/28/20 [History] Spironolactone [Aldactone] 12.5 mg PO DAILY 05/28/20 [History] guaiFENesin [Robitussin] 20 ml PO Q4H PRN 05/28/20 [History] Fluconazole [Diflucan] 150 mg PO DAILY 06/15/20 [History] Miconazole [Cruex 2%] 1 applic TP TID #85 canister 06/15/20 [Rx] Ondansetron [Ondansetron ODT] 4 mg PO Q6H PRN #15 tab.rapdis 06/15/20 [Rx] Past Medical History HEENT History: Reports: Cataract, Hard of Hearing Cardiovascular History: Reports: Afib, Heart Failure, Hypertension, [place], Stents Respiratory History: Reports: Asthma, Sleep Apnea Gastrointestinal History: Reports: Fatty Liver, GERD Other Genitourinary History: Overactive bladder WHEEL SETTER History: Reports: , Prolapsed Uterus Musculoskeletal History: Reports: Arthritis, Fracture Other Musculoskeletal History: Psoriatic arthritis. Clavicle FX Neurological History: Reports: Neuropathy, Diabetic, Other (See Below) Other Neuro History: vascular dementia Psychiatric History: Reports: Dementia, Depression Endocrine/Metabolic History: Reports: Diabetes, Type II, IDDM, Obesity/BMI 30+ Other Hematologic History: Thrombocytopenia Immunologic History: Reports: None - Infectious Disease History Infectious Disease History: Reports: Chicken Pox - Past Surgical History Cardiovascular Surgical History: Reports: Coronary Artery Stent GI Surgical History: Reports: Cholecystectomy, Colonoscopy, EGD Other Female Surgeries/Procedures: Cystocele Musculoskeletal Surgical History: Reports: Knee Replacement, Shoulder Surgery Other Musculoskeletal Surgeries/Procedures:: Toe ORIF Social & Family History - Family History Family Medical History: No Pertinent Family History - Caffeine Use Caffeine Use: Reports: Coffee, Soda - Living Situation & Occupation Living situation: Reports: , with Spouse, Assisted Living Occupation: Retired ED ROS GENERAL - Review of Systems Review Of Systems: See Below Constitutional: Reports: No Symptoms HEENT: Reports: No Symptoms Respiratory: Reports: Shortness of Breath Cardiovascular: Reports: Palpitations. Denies: Chest Pain, Blood Pressure Problem, Claudication, Dyspnea on Exertion, Edema, Lightheadedness, Orthopnea, PND, Syncope Endocrine: Reports: No Symptoms GI/Abdominal: Reports: No Symptoms : Reports: No Symptoms Musculoskeletal: Reports: No Symptoms Skin: Reports: No Symptoms Neurological: Reports: No Symptoms. Denies: Confusion, Dizziness, Headache, Numbness, Paresthesia, Syncope, Tingling, Trouble Speaking, Weakness Psychiatric: Reports: No Symptoms Hematologic/Lymphatic: Reports: No Symptoms Immunologic: Reports: No Symptoms ED EXAM, GENERAL - Physical Exam Exam: See Below Exam Limited By: No Limitations General Appearance: Alert, WD/WN, No Apparent Distress Eye Exam: Bilateral Eye: EOMI, Normal Inspection Nose: Normal Inspection, Normal Mucosa, No Blood Throat/Mouth: Normal Inspection, Normal Lips, Normal Teeth, Normal Gums, Normal Oropharynx, Normal Voice, No Airway Compromise Head: Atraumatic, Normocephalic Neck: Normal Inspection, Supple, Non-Tender, Full Range of Motion Respiratory/Chest: No Respiratory Distress, Lungs Clear, Normal Breath Sounds, No Accessory Muscle Use, Chest Non-Tender Cardiovascular: Normal Peripheral Pulses, Regular Rate, Rhythm, No Edema, No Gallop, No JVD, No Murmur, No Rub, Tachycardia. No: JVD, Irregularly Irregular GI/Abdominal: Normal Bowel Sounds, Soft, Non-Tender, No Organomegaly, No Distention, No Abnormal Bruit Extremities: Normal Inspection, Normal Range of Motion, Non-Tender, No Pedal Edema, Normal Capillary Refill Neurological: Alert, Oriented, CN II-XII Intact, Normal Cognition, Normal Gait Psychiatric: Normal Affect, Normal Mood Skin Exam: Warm, Dry, Intact, Normal Color, No Rash Course - Vital Signs Text/Narrative:: CBC BMP troponin EKG EKG is normal sinus rhythm with tachycardia noted CBC BMP troponin all negative from the normal limits called for cardiology consult through Mae Moranan at 1310 currently in a case and will call back at first availability. Patient rechecked and is stable and doing well Spoke with cardiology Dr. Ferguson states he is willing to accept transfer of the patient for further work-up. Spoke with Dr. Cash in the ER he is willing except for transfer 1415 Last Recorded V/S: Last Vital Signs Temp 36.8 C 06/17/20 12:06 Pulse 143 H 06/17/20 14:02 Resp 18 06/17/20 14:02 BP 115/77 06/17/20 14:02 Pulse Ox 95 06/17/20 14:02 - Orders/Labs/Meds Labs: Laboratory Tests 06/17/20 06/17/20 Range/Units 12:24 12:24 WBC 7.8 (4.0-10.0) x10^3/uL RBC 5.44 (4.00-5.50) x10^6/uL Hgb 14.5 (12.0-16.0) g/dL Hct 44.2 (33.0-47.0) % MCV 81.3 (78.0-93.0) fL MCH 26.7 (26.0-32.0) pg MCHC 32.8 (32.0-36.0) g/dL RDW Coeff of Ananda 16.8 H (10.0-15.0) % Plt Count 169 (130-400) x10^3/uL Neut % (Auto) 65.4 (50.0-80.0) % Lymph % (Auto) 24.5 L (25.0-50.0) % [place] % (Auto) 6.4 (2.0-11.0) % Eos % (Auto) 3.4 (0.0-4.0) % Baso % (Auto) 0.3 (0.2-1.2) % Sodium 145 (136-145) mmol/L Potassium 3.5 (3.5-5.1) mmol/L Chloride 104 (98-107) mmol/L Carbon Dioxide 24 (21-32) mmol/L Anion Gap 20.5 H (5-15) mmol/L BUN 18 (7-18) mg/dL Creatinine 1.3 H (0.55-1.02) mg/dL Est Cr Clr Drug Dosing 31.79 mL/min Estimated GFR (MDRD) 40 Glucose 236 H (74-106) mg/dL Calcium 9.9 (8.5-10.1) mg/dL Troponin I < 0.017 (<=0.056) ng/mL Departure - Departure Time of Disposition: 13:40 Disposition: DC/Tfer to [facility] 02 Reason for Transfer *Q: Other (cards cosult) Condition: Good Clinical Impression: Tachycardia, Shortness of breath Referrals: Chantel Butcher NP [Primary Care Provider] - Forms: ED Department Discharge, Interfacility Transfer [facility] Sepsis Event Note (ED) - Focused Exam Vital Signs: Vital Signs Temp Pulse Resp BP Pulse Ox 06/17/20 14:02 143 H 18 115/77 95 06/17/20 13:38 145 H 18 119/82 96 06/17/20 12:06 36.8 C 151 H 18 105/63 90 L - Problem List & Annotations (1) Shortness of breath SNOMED Code(s): 315023481 Code(s): R06.02 - SHORTNESS OF BREATH Status: Acute (2) Tachycardia SNOMED Code(s): 0902987 Code(s): R00.0 - TACHYCARDIA, UNSPECIFIED Status: Acute
[2020-06-17 12:54] LABS: ANION GAP 20.5 mmol/L (5-15); CHLORIDE,CL 104 mmol/L (98-107); SODIUM,NA 145 mmol/L (136-145)
[2020-06-17 14:03] VITALS: BP 115/77; PULSE 143
== END 2020-06-17 15:35 | disposition short-term general hospital (02) ==
LOC: VM.ED 12:06
DX: R00.0 Tachycardia, unspecified (principal); R06.02 Shortness of breath; E66.9 Obesity, unspecified; I48.91 Unspecified atrial fibrillation; I11.0 Hypertensive heart disease with heart failure; I50.9 Heart failure, unspecified; I25.2 Old myocardial infarction; J45.909 Unspecified asthma, uncomplicated; K21.9 Gastro-esophageal reflux disease without esophagitis; E11.40 Type 2 diabetes mellitus with diabetic neuropathy, unspecified; F03.90 Unspecified dementia, unspecified severity, without behavioral disturbance, psychotic disturbance, mood disturbance, and anxiety; Z79.4 Long term (current) use of insulin; Z79.01 Long term (current) use of anticoagulants; Z79.899 Other long term (current) drug therapy; Z88.2 Allergy status to sulfonamides; Z88.8 Allergy status to other drugs, medicaments and biological substances; Z95.5 Presence of coronary angioplasty implant and graft
CPT/HCPCS: 36415; 80048; 84484; 85025; 93005; 99284; 99285-25

== ENCOUNTER 2020-12-15 12:21 | Emergency (ER) | payer MEDICARE ==
[2020-12-15 14:00] LABS: ANION GAP 14.8 mmol/L (5-15); CHLORIDE,CL 108 mmol/L (98-107); SODIUM,NA 143 mmol/L (136-145)
--- NOTE | 2020-12-15 14:06 | EDM.PDOC ---
ED HPI GENERAL MEDICAL PROBLEM - General Chief Complaint: Cardiovascular Problem Stated Complaint: chest tightness/ shortness of breath, hypertension. Time Seen by Provider: 12/15/20 13:10 Source of Information: Reports: Patient History Limitations: Reports: No Limitations, Other (hard of hearing but has hearing aids) - History of Present Illness INITIAL COMMENTS - FREE TEXT/NARRATIVE: Patient presents to the ED for feeling fatigued, some shortness of breath and some chest tightness since an outing two days ago. She does have CHF, CAD and COPD and has inhalers. STates her weight is stable, and has been taking her medications but they increased her dose of metoprolol yesterday due to persistent hypertension. She has her blood pressure taken before her medications in the morning. Today it was checked and was 190/100 prior to medicaiton so they brought her in. Has not been on steroids for some time. Has had her covid vaccinations. Otherwise is well without cough, fever, abdominal pain, and is eating and drinking well. Concerned for her fatigue and her hypertension Mid-Sternal Chest Pain Score (Numeric/FACES): 4 - Related Data Allergies Allergy/AdvReac Type Severity Reaction Status Date / Time methotrexate Allergy Severe Other Verified 12/15/20 13:39 Sulfa (Sulfonamide Allergy Severe Anaphylactic Verified 12/15/20 13:39 Antibiotics) Shock diltiazem AdvReac Unknown Anaphylactic Verified 12/15/20 13:39 Shock Home Meds: Home Meds Levothyroxine 25 mcg PO ACBREAKFAST 07/02/17 [History] buPROPion [buPROPion XL] 150 mg PO DAILY 07/03/17 [History] Insulin Glargine,Hum.Rec.Anlog [Basaglar Kwikpen U-100] 40 unit SQ BEDTIME 07/04/17 [History] Budesonide [Pulmicort Flexhaler] 2 inh PO BID 04/08/20 [History] Gabapentin [Neurontin] 100 mg PO TID 04/08/20 [History] Insulin Aspart [NovoLOG] 3 unit SUBCUT TIDMEALS 04/08/20 [History] polyethylene glycoL 3350 [Miralax] 17 gm PO Q48H 04/08/20 [History] Acetaminophen [Acetaminophen ER] 650 mg PO BID MDD 4000MG PER DAY 04/24/20 [History] Albuterol Sulfate [Proventil Hfa] 2 inh PO Q4H PRN 04/24/20 [History] Albuterol [Proventil Neb Soln] 2.5 mg NEB Q4HRRT PRN 04/24/20 [History] Apixaban [Eliquis] 5 mg PO BID 04/24/20 [History] Betamethasone/Clotrimazole [Lotrisone] 1 applic TOP BID PRN 04/24/20 [History] Calc/D3/Mag/Zn/Nisha/Christiano/[place] [Calcium 600 MG Plus Vit D] 1 tab PO BID 04/24/20 [History] Capsaicin [Zostrix 0.025% Crm] 1 applic TOP Q6H PRN 04/24/20 [History] Carboxymethylcellulose Sodium [Refresh Liquigel 1%] 1 drop EYEBOTH DAILY 04/24/20 [History] Fexofenadine [Alem] 180 mg PO DAILY 04/24/20 [History] Lutein/Minerals/Vit A,C & E [Ocuvite] 1 tab PO DAILY 04/24/20 [History] Methylphenidate HCl 20 mg PO BID 04/24/20 [History] Metoprolol Succinate [Toprol XL 100mg] 125 mg PO DAILY 04/24/20 [History] Mineral Oil/Petrolatum Oint [Lacri-Lube S.O.P Oint] 1 applic EYEBOTH BID 04/24/20 [History] Multivitamin 1 tab PO DAILY 04/24/20 [History] [place]-3 Fatty Acids/Fish Oil [Fish Oil 1,000 mg Softgel] 1,000 mg PO DAILY 04/24/20 [History] Oxybutynin Chloride [Oxybutynin Chloride ER] 10 mg PO DAILY 04/24/20 [History] Pantoprazole Sodium [Protonix] 40 mg PO DAILY 04/24/20 [History] Propylene Glycol/Peg 400 [Systane 0.3-0.4% Eye Drops] 1 drop EYEBOTH QID 04/24/20 [History] Rosuvastatin [Crestor] 10 mg PO DAILY 04/24/20 [History] Sod Phos Di, [place]/K Phos [place] [K-Phos Neutral Tablet] 250 mg PO BID 04/24/20 [History] Ticagrelor [Brilinta] 90 mg PO BID 04/24/20 [History] metFORMIN HCl [Metformin HCl ER] 500 mg PO DAILY 04/24/20 [History] Insulin Aspart 0 dose SQ ASDIRECTED 05/27/20 [History] Losartan [Cozaar] 25 mg PO DAILY 05/27/20 [History] Acetaminophen [Tylenol Extra Strength] 500 - 1,000 mg PO Q8H PRN 05/28/20 [History] Benzonatate [Tessalon Perle] 100 mg PO TID PRN 05/28/20 [History] Magnesium Oxide [Mag-Oxide] 160 mg PO DAILY 05/28/20 [History] Spironolactone [Aldactone] 12.5 mg PO DAILY 05/28/20 [History] guaiFENesin [Robitussin] 20 ml PO Q4H PRN 05/28/20 [History] Fluconazole [Diflucan] 150 mg PO DAILY 06/15/20 [History] Miconazole [Cruex 2%] 1 applic TP TID #85 canister 06/15/20 [Rx] Ondansetron [Ondansetron ODT] 4 mg PO Q6H PRN #15 tab.rapdis 06/15/20 [Rx] predniSONE [Prednisone] 40 mg PO DAILY #5 tab.ds.pk 12/15/20 [Rx] Past Medical History HEENT History: Reports: Cataract, Hard of Hearing Cardiovascular History: Reports: Afib, Heart Failure, Hypertension, [place], Stents Respiratory History: Reports: Asthma, Sleep Apnea Gastrointestinal History: Reports: Fatty Liver, GERD Other Genitourinary History: Overactive bladder 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 Clavicle FX Neurological History: Reports: Neuropathy, Diabetic, Other (See Below) Other Neuro History: vascular dementia Psychiatric History: Reports: Dementia, Depression Endocrine/Metabolic History: Reports: Diabetes, Type II, IDDM, Obesity/BMI 30+ Other Hematologic History: Thrombocytopenia Immunologic History: Reports: None - Infectious Disease History Infectious Disease History: Reports: Chicken Pox - Past Surgical History Cardiovascular Surgical History: Reports: Coronary Artery Stent GI Surgical History: Reports: Cholecystectomy, Colonoscopy, EGD Other Female Surgeries/Procedures: Cystocele Musculoskeletal Surgical History: Reports: Knee Replacement, Shoulder Surgery Other Musculoskeletal Surgeries/Procedures:: Toe ORIF Social & Family History - Family History Family Medical History: No Pertinent Family History - Tobacco Use Tobacco Use Status *Q: Unknown Ever Used Tobacco - Caffeine Use Caffeine Use: Reports: Coffee, Soda - Living Situation & Occupation Living situation: Reports: , with Spouse, Assisted Living Occupation: Retired ED ROS GENERAL - Review of Systems Review Of Systems: See Below Constitutional: Reports: Malaise, Fatigue. Denies: Fever, Chills HEENT: Reports: No Symptoms. Denies: Rhinitis, Sinus Problem, Throat Swelling Respiratory: Reports: Shortness of Breath. Denies: Wheezing, Cough, Hemoptysis Cardiovascular: Reports: Chest Pain (tightness). Denies: Claudication, Dyspnea on Exertion, Edema Endocrine: Reports: No Symptoms GI/Abdominal: Reports: No Symptoms. Denies: Abdominal Pain, Black Stool, Nausea, Vomiting Musculoskeletal: Reports: No Symptoms. Denies: Leg Pain, Foot Pain Skin: Reports: No Symptoms. Denies: Cyanosis Neurological: Reports: No Symptoms. Denies: Confusion, Dizziness, Headache Psychiatric: Reports: No Symptoms Hematologic/Lymphatic: Reports: No Symptoms. Denies: Anemia Immunologic: Reports: No Symptoms. Denies: Anaphylaxis ED EXAM, GENERAL - Physical Exam Exam: See Below Exam Limited By: No Limitations General Appearance: Alert, WD/WN, No Apparent Distress Eye Exam: Bilateral Eye: EOMI, Normal Inspection, PERRL Ears: Hearing Loss Nose: Normal Inspection, Normal Mucosa, No Blood Throat/Mouth: Normal Inspection, Normal Lips, Normal Teeth, Normal Voice Head: Atraumatic, Normocephalic Neck: Normal Inspection, Supple Respiratory/Chest: No Respiratory Distress, Lungs Clear, Normal Breath Sounds, No Accessory Muscle Use, Chest Non-Tender Cardiovascular: Regular Rate, Rhythm GI/Abdominal: Normal Bowel Sounds, Soft Back Exam: Normal Inspection, Full Range of Motion Extremities: Normal Inspection, Normal Range of Motion, Non-Tender, No Pedal Edema Neurological: Alert, Oriented, CN II-XII Intact, Normal Cognition, No Motor/Sensory Deficits Psychiatric: Normal Affect #1 Interpretation EKG Date: 12/15/20 Time: 12:57 Rhythm: NSR P-Wave: Absent (regular rhythm, buy no p wave seen) ST-T: Other (flat) Course - Vital Signs Last Recorded V/S: Last Vital Signs Temp 36.4 C 12/15/20 12:30 Pulse 61 12/15/20 12:30 Resp 17 12/15/20 12:30 BP 167/93 H 12/15/20 12:30 Pulse Ox 97 12/15/20 12:30 - Orders/Labs/Meds Orders: Active Orders 24 hr Category Date Time Status Chest 2V [CR] Stat Exams 12/15/20 13:11 Taken Labs: Laboratory Tests 12/15/20 12/15/20 12/15/20 Range/Units 13:27 13:27 13:27 WBC 7.2 (4.0-10.0) x10^3/uL RBC 4.38 (4.00-5.50) x10^6/uL Hgb 10.5 L D (12.0-16.0) g/dL Hct 34.1 (33.0-47.0) % MCV 77.9 L D (78.0-93.0) fL MCH 24.0 L (26.0-32.0) pg MCHC 30.8 L (32.0-36.0) g/dL RDW Coeff of Ananda 15.4 H (10.0-15.0) % Plt Count 145 (130-400) x10^3/uL Neut % (Auto) 64.6 (50.0-80.0) % Lymph % (Auto) 26.8 (25.0-50.0) % [place] % (Auto) 5.7 (2.0-11.0) % Eos % (Auto) 2.6 (0.0-4.0) % Baso % (Auto) 0.3 (0.2-1.2) % PT (9.9-12.5) SEC INR (2.0-3.5) D-Dimer, Quantitative 0.25 (<=0.58) mg/LFEU Sodium 143 (136-145) mmol/L Potassium 3.8 (3.5-5.1) mmol/L Chloride 108 H (98-107) mmol/L Carbon Dioxide 24 (21-32) mmol/L Anion Gap 14.8 (5-15) mmol/L BUN 16 (7-18) mg/dL Creatinine 0.8 (0.55-1.02) mg/dL Est Cr Clr Drug Dosing TNP Estimated GFR (MDRD) > 60 Glucose 173 H (70-99) mg/dL Calcium 8.9 (8.5-10.1) mg/dL Corrected Calcium 9.6 (8.5-10.1) mg/dL Magnesium 1.9 (1.8-2.4) mg/dL Total Bilirubin 0.5 (0.2-1.0) mg/dL AST 27 (15-37) U/L ALT 11 L (14-59) U/L Alkaline Phosphatase 84 (46-116) U/L Troponin I High Sens 7 (<=51) ng/L NT-Pro-B Natriuret Pep (<=450) pg/mL Total Protein 6.8 (6.4-8.2) g/dL Albumin 3.1 L (3.4-5.0) g/dL Globulin 3.7 Albumin/Globulin Ratio 0.84 12/15/20 12/15/20 Range/Units 13:27 13:27 WBC (4.0-10.0) x10^3/uL RBC (4.00-5.50) x10^6/uL Hgb (12.0-16.0) g/dL Hct (33.0-47.0) % MCV (78.0-93.0) fL MCH (26.0-32.0) pg MCHC (32.0-36.0) g/dL RDW Coeff of Ananda (10.0-15.0) % Plt Count (130-400) x10^3/uL Neut % (Auto) (50.0-80.0) % Lymph % (Auto) (25.0-50.0) % [place] % (Auto) (2.0-11.0) % Eos % (Auto) (0.0-4.0) % Baso % (Auto) (0.2-1.2) % PT 10.6 (9.9-12.5) SEC INR 1.0 L (2.0-3.5) D-Dimer, Quantitative (<=0.58) mg/LFEU Sodium (136-145) mmol/L Potassium (3.5-5.1) mmol/L Chloride (98-107) mmol/L Carbon Dioxide (21-32) mmol/L Anion Gap (5-15) mmol/L BUN (7-18) mg/dL Creatinine (0.55-1.02) mg/dL Est Cr Clr Drug Dosing Estimated GFR (MDRD) Glucose (70-99) mg/dL Calcium (8.5-10.1) mg/dL Corrected Calcium (8.5-10.1) mg/dL Magnesium (1.8-2.4) mg/dL Total Bilirubin (0.2-1.0) mg/dL AST (15-37) U/L ALT (14-59) U/L Alkaline Phosphatase (46-116) U/L Troponin I High Sens (<=51) ng/L NT-Pro-B Natriuret Pep 954 H (<=450) pg/mL Total Protein (6.4-8.2) g/dL Albumin (3.4-5.0) g/dL Globulin Albumin/Globulin Ratio - Radiology Interpretation Free Text/Narrative:: no acute, chest x-ray - Re-Assessments/Exams Free Text/Narrative Re-Assessment/Exam: 12/15/20 14:33 patient's blood pressure is 167/93. will check labs, troponin, chest x-ray Vital Signs - 24 hr 12/15/20 12:30 Temperature [ 36.4 C Temporal] Pulse, 61 Peripheral [ Left Pulse Oximetry] Respiratory 17 Rate Blood Pressure 167/93 H [Right Arm] O2 Sat by Pulse 97 Oximetry 12/15/20 14:36 note BNP in 04/2020 was 3300. much better today. 12/15/20 15:14 discussed follow up with her pcp for continued blood pressure issues. Discussed low salt diet, limited interest in this, but will send info home with her. sDiscussed short term steroids for the shortness of breath. pressure is 152/75. return as needed Departure - Departure Time of Disposition: 15:08 Disposition: Home, Self-Care 01 Clinical Impression: Hypertension, COPD exacerbation Prescriptions: predniSONE [Prednisone] 40 mg PO DAILY #5 tab.ds.pk Instructions: Hypertension, Adult, [id number], Chronic Obstructive Pulmonary Disease Exacerbation, [id number], Low-Sodium Eating Plan Referrals: Chantel Butcher SOFTWARE ENGINEER INTERN [Primary Care Provider] - Forms: ED Department Discharge Additional Instructions: Continue to manage your high blood pressure with your PCP. Do not take your blood pressure until your medications have been in for one hour. Take the steroid to help with your breathing problems. This will increase your glucose temporarily. keep taking your water pills. Keep your weights recorded daily and watch your sodium intake. Sepsis Event Note (ED) - Evaluation Sepsis Screening Result: No Definite Risk - Focused Exam Vital Signs: Vital Signs Temp Pulse Resp BP Pulse Ox 12/15/20 12:30 36.4 C 61 17 167/93 H 97 - My Orders Last 24 Hours: My Active Orders 12/15/20 13:11 Chest 2V [CR] Stat - Assessment/Plan Last 24 Hours: My Active Orders 12/15/20 13:11 Chest 2V [CR] Stat
--- NOTE | 2020-12-15 15:18 | CR ---
[id number] RAD/RAD Chest PA And Lateral EXAM: RAD Chest PA And Lateral INDICATION: CHEST PRESSURE COMPARISON: June 15, 2020. DISCUSSION: Cardiomediastinal silhouette is normal in size and contour. No infiltrate, effusion, pneumothorax, or edema. Pulmonary hyperinflation. IMPRESSION: No acute cardiopulmonary abnormality. Andi Kasper DO 12/15/20 1516 Thank you for allowing us to participate in the care of your patient.
[2020-12-15 16:46] VITALS: BP 152/75; PULSE 84
== END 2020-12-15 15:27 | disposition home or self-care (01) ==
LOC: VM.ED 12:21
DX: J44.1 Chronic obstructive pulmonary disease with (acute) exacerbation (principal); I11.0 Hypertensive heart disease with heart failure; I50.9 Heart failure, unspecified; I48.91 Unspecified atrial fibrillation; I25.10 Atherosclerotic heart disease of native coronary artery without angina pectoris; K21.9 Gastro-esophageal reflux disease without esophagitis; M19.90 Unspecified osteoarthritis, unspecified site; E11.40 Type 2 diabetes mellitus with diabetic neuropathy, unspecified; F03.90 Unspecified dementia, unspecified severity, without behavioral disturbance, psychotic disturbance, mood disturbance, and anxiety; E66.9 Obesity, unspecified; Z95.5 Presence of coronary angioplasty implant and graft; Z88.8 Allergy status to other drugs, medicaments and biological substances; Z88.2 Allergy status to sulfonamides; Z79.4 Long term (current) use of insulin; Z79.01 Long term (current) use of anticoagulants; Z79.899 Other long term (current) drug therapy
CPT/HCPCS: 36415; 71046; 80053; 83735; 83880; 84484; 85025; 85379; 85610; 93010; 99284; 99285-25